=== PATIENT | female | born 1935 | race Caucasian/White ===

== ENCOUNTER 2019-07-07 16:40 | Inpatient (IN) | payer MEDICARE ==
[~2019-07-07] VITALS: Ht 165.1 cm; Wt 66.4 kg
[2019-07-07 18:58] VITALS: BP 150/74
[2019-07-07] MEDS ORDERED: METO100T5 PO (19:22)
[2019-07-07] MEDS ORDERED: FLEC25TA PO (19:22)
[2019-07-07] MEDS ORDERED: BENA40TA5 PO (19:22)
[2019-07-07] MEDS ORDERED: XARE20TA PO (19:22)
[2019-07-07] MEDS ORDERED: VITA1CHW7 PO (19:22)
[2019-07-07] MEDS ORDERED: VITA-158 PO (19:22)
[2019-07-07] MEDS ORDERED: FURO20TA2 PO (19:22)
[2019-07-07] MEDS ORDERED: ALLO100T PO (19:22)
[2019-07-07] MEDS ORDERED: AMLO10TA5 PO (19:22)
[2019-07-07] MEDS ORDERED: REFR0.5D8 OU (19:22)
[2019-07-07] MEDS ORDERED: ACET-897 PO (19:22)
[2019-07-07 20:00] VITALS: BP 150/70
--- NOTE | 2019-07-07 20:12 | REPVR ---
PROCEDURE INFORMATION: Exam: CT Chest Without Contrast Exam date and time: 07/07/2019 7:35 PM Age: 83 years old Clinical indication: Other: Pleural effusion TECHNIQUE: Imaging protocol: Computed tomography of the chest without contrast. 3D rendering: MIP and/or 3D reconstructed images were created by the technologist. Radiation optimization: All CT scans at this facility use at least one of these dose optimization techniques: automated exposure control; mA and/or kV adjustment per patient size (includes targeted exams where dose is matched to clinical indication); or iterative reconstruction. COMPARISON: No relevant prior studies available. FINDINGS: Lungs: Large left upper lobe pulmonary parenchymal mass measures 5.4 x 6.2 x 5.7 cm, likely malignant. Atelectasis of the lingular lobe. Multiple bilateral pulmonary parenchymal nodules measuring up to 8 mm in the left upper lobe. Findings worrisome for hematogenous dissemination of tumor. Ground-glass opacity in the right upper lobe measures 1.8 x 1.3 x 2.1 cm and in the superior segment of the right lower lobe measuring 1 x 2.3 x 2.6 cm. Bronchiectasis involving the posterior segmental bronchi of the right upper lobe. Tree-in-bud opacities demonstrated in the peripheral aspect of the right upper lobe, lateral aspect of the right middle lobe, and right lower lobe consistent with foci of age indeterminate bronchiolitis/alveolitis. Pleural space: Moderate loculated pleural effusion. Heart: There is mild atherosclerotic calcification of the coronary arteries. Pulmonary arteries: There is enlargement of the central pulmonary arteries, findings which can be associated with pulmonary arterial hypertension which should be correlated clinically. Aorta: The aorta demonstrates moderate atherosclerotic calcification. Lymph nodes: Unremarkable. No enlarged lymph nodes. Gallbladder and bile ducts: There are gallstones present. No evidence of cholecystitis demonstrated. Bones/joints: The spine demonstrates moderate degenerative changes. Soft tissues: Unremarkable. IMPRESSION: 1. Large left upper lobe pulmonary parenchymal mass measures 5.4 x 6.2 x 5.7 cm, likely malignant. Confirmation with percutaneous image guided biopsy could be obtained if clinically desired. 2. Moderate loculated pleural effusion. 3. Multiple bilateral pulmonary parenchymal nodules measuring up to 8 mm in the left upper lobe. Findings worrisome for hematogenous dissemination of tumor. 4. Ground-glass opacity in the right upper lobe measures 1.8 x 1.3 x 2.1 cm and in the superior segment of the right lower lobe measuring 1 x 2.3 x 2.6 cm. Follow-up pending evaluation of the left upper lobe mass. 5. Bronchiectasis involving the posterior segmental bronchi of the right upper lobe. 6. Tree-in-bud opacities demonstrated in the peripheral aspect of the right upper lobe, lateral aspect of the right middle lobe, and right lower lobe consistent with foci of age indeterminate bronchiolitis/alveolitis. 7. There is enlargement of the central pulmonary arteries, findings which can be associated with pulmonary arterial hypertension which should be correlated clinically. 8. There are gallstones present. No evidence of cholecystitis demonstrated. Electronically signed by: Bernardo Vinson On 07/07/2019 20:12:15 PM
[2019-07-07 20:13] LABS: BASO % 0.5 % (0.0-1.0); EOS % 0.5 % (0.0-3.0); HEMATOCRIT 36.6 % (36.0-47.0); HEMOGLOBIN 11.8 g/dl (12.0-15.5); LYMPH # 0.8 10^3/uL (1.5-5.0); LYMPH % 8.8 % (24.0-44.0); MEAN CORPUSCULAR HEMOGLOBIN 30.6 pg (27.0-33.0); MEAN CORPUSCULAR HGB CONC 32.2 g/dl (32.0-36.5); MEAN CORPUSCULAR VOLUME 94.8 fl (80.0-96.0); MONO # 0.9 10^3/uL (0.0-0.8); MONO % 10.8 % (0.0-5.0); NEUTROPHILS # 6.8 10^3/uL (1.5-8.5); NEUTROPHILS % 78.9 % (36.0-66.0); PLATELET COUNT, AUTOMATED 347 10^3/uL (150-450); RED BLOOD COUNT 3.86 10^6/uL (4.00-5.40); WHITE BLOOD COUNT 8.5 10^3/uL (4.0-10.0)
[2019-07-07 20:27] LABS: INR 1.92; PROTHROMBIN TIME 21.8 SECONDS (11.8-14.0)
[2019-07-07 20:28] LABS: PARTIAL THROMBOPLASTIN TIME 48.7 SECONDS (25.0-38.4)
[2019-07-07 20:38] LABS: ALBUMIN 3.1 GM/DL (3.2-5.2); ALT/SGPT 15 U/L (12-78); BILIRUBIN,TOTAL 0.4 MG/DL (0.2-1.0); BLOOD UREA NITROGEN 19 MG/DL (7-18); CARBON DIOXIDE LEVEL 29 MEQ/L (21-32); CHLORIDE LEVEL 102 MEQ/L (98-107); CK-MB VALUE MASS < 1.0 NG/ML (<3.6); CPK CREATINE PHOSPHOKINASE 32 U/L (26-192); CREATININE FOR GFR 1.19 MG/DL (0.55-1.30); GLUCOSE, FASTING 136 MG/DL (70-100); MB/CK RELATIVE INDEX 3.12 (< OR =4); NT-PRO BNP 354 PG/ML (<450); POTASSIUM SERUM 3.9 MEQ/L (3.5-5.1); SODIUM LEVEL 138 MEQ/L (136-145); TOTAL PROTEIN 6.8 GM/DL (6.4-8.2); TROPONIN I < 0.02 NG/ML (< 0.10)
--- NOTE | 2019-07-07 22:38 | ECGEPIP ---
[facility] Test Date: 2019-07-07 Pat Name: OMAR MANZO Department: Room: I4530-76 Gender: Female Landmen: JAVED : 1935 Requested By: KP Hartley Order Number: [id number] Reading MD: Adriel Ellis Measurements Intervals [place] Rate: 66 P: 85 LA: 130 QRS: 29 QRSD: 92 T: 27 QT: 364 QTc: 384 Interpretive Statements SINUS RHYTHM WITH OCCASIONAL SUPRAVENTRICULAR PREMATURE COMPLEXES Poor R wave progression. No prior ECG available for comparison at the time of interpretation. Electronically Signed on 07-07-2019 22:37:50 EST by Adriel Ellis
--- NOTE | 2019-07-07 23:59 | HPEPDOC ---
General Date of Admission Jul 07, 2019 at 18:30 Date of Service: Jul 07, 2019 Attending Physician: KP CALDERA MD Chief Complaint The patient is a 83-year-old female admitted with a reason for visit of Pleural Effusion. Source: Patient, Family History of Present Illness Concepcion is an 83-year-old female who was admitted directly to the hosp ital after concerned that she has a malignant pleural effusion. She has a past medical history pertinent for right sided breast cancer that was diagnosed in 1994, status post right-sided mastectomy with removal of 27 lymph nodes, as well as chemotherapy. All of her care was done in [place]. She presents to [facility] saying that she has been sick since with a dry cough. It has been about the same or slightly worsened since it started, and there has been no sputum production or hemoptysis. Sometimes a cold drink or walking into cold air will start some coughing fits, other times it begins without any inciting event. Along with her cough, she has had an insidious onset of shortness of breath that started some time between [place] and now. Her shortness of breath has gotten worse, though she denies orthopnea or paroxysmal nocturnal dyspnea. It is slightly worse with exertion, however she has not really noticed any other remitting or exacerbating factors. She also reports that she has lost 5-6 pounds over the last 3 months, and feels like sometimes food gets stuck in her throat. Periodically she will have some pain with swallowing. She says that sometimes she will have intermittent chest discomfort in the left lower chest/left upper quadrant, however it does not last for a long and she cannot describe it in detail. Periodically she will have some midthoracic back pain, which is chronic for her. She will also have nosebleeds if she blows her nose too hard. Her social history is significant for a greater than [id number] smoking history, however she did quit about 40 years ago. She also used to work in a [employer] placement. She lives alone in an old house, she is unsure as to whether or not it has led or asbestos in it. Home Medications Scheduled Allopurinol (Allopurinol) 100 Mg Tablet, 100 MG PO BID, (Reported) Amlodipine Besylate (Amlodipine Besylate) 10 Mg Tablet, 10 MG PO DAILY, (Reported) Ascorbic Acid (Vitamin C) 500 Mg Tablet, 500 MG PO DAILY, (Reported) Benazepril HCl (Benazepril HCl) 40 Mg Tablet, 40 MG PO DAILY, (Reported) Carboxymethylcellulose Sodium (Refresh Tears) 15 Ml Drops, 1 DROP OU BID, (Reported) Cholecalciferol (Vitamin D3) (Vitamin D3) 2,000 Unit Tab.chew, 2,000 UNIT PO DAILY, (Reported) Flecainide Acetate (Flecainide Acetate) 50 Mg Tablet, 50 MG PO BID, (Reported) Furosemide (Furosemide) 20 Mg Tablet, 20 MG PO 3XW, (Reported) TUES, THURS, SAT Metoprolol Tartrate (Metoprolol Tartrate) 100 Mg Tablet, 50 MG PO BID, (Reported) Rivaroxaban (Xarelto) 20 Mg Tablet, 20 MG PO DAILY, (Reported) Scheduled PRN Acetaminophen (Tylenol Extra Strength) 500 Mg Tablet, 1,000 MG PO TID PRN for PAIN, (Reported) Allergies Coded Allergies: No Known Allergies (Unverified , 07/07/19) Past Medical History Medical History Gout Hypertension Atrial fibrillation, rate controlled with flecainide and metoprolol, anticoagulated with Xarelto History of right-sided breast cancer (1994) status post right-sided mastectomy and removal of 27 lymph nodes Basal cell carcinoma of the nose status post excision Surgical History Tonsillectomy Both eyes 2 (?cataracts) Right-sided Mastectomy with removal of 27 lymph nodes Subsequent right axillary surgery (unsure of what kind or what for) Family History Most of her father's side of the family had cancer Social History She is a former smoker (quit 40 years ago with a greater than [id number] smoking history). Occasionally will have a glass of beer or wine every once in a while. Lives alone in an older home. No pets. No travel, she has stayed in the [place] country for all of her life. 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 A-FIB/CHADSVASC A-FIB History Current/History of A-Fib/PAF?: Yes Current PO Anticoag Therapy: Yes Review of Systems Other systems Constitutional: Denies fevers, chills, or night sweats. Endorses 5-6 pound weight loss over the last 3 months Eyes: Denies double vision, blurry vision, floaters, or feeling like a curtain pulled down. Endorses vision changes while reading, occasionally a workable look like it is cut off Ear nose throat: Denies runny nose, epistaxis, sinus pain, tinnitus, or sore throat. Endorses odynophagia Cardiovascular: Denies chest pain, paroxysmal nocturnal dyspnea, orthopnea, edema, or palpitations. Respiratory: Denies sputum production, wheezes, or hemoptysis. Endorses dry cough and shortness of breath as above Gastrointestinal: Denies abdominal pain, loss of appetite, nausea, vomiting, diarrhea, constipation, obstipation, hematemesis, hematochezia, melena, or tenesmus Musculoskeletal: Denies joint swelling, decreased range of motion, crepitus, or new arthritis Integumentary: Denies pruritus, rashes, or lesions Neuro: Denies any changes to sight/smell/hearing/taste, seizures, faint, headaches, paresthesias, anesthesias Psychiatric: Denies depression, anxiety, paranoia, anhedonia, or episodes of mercedes Endocrine: Denies diarrhea, increased appetite, tremor, palpitations, constipation, dry skin, polydipsia, polyuria, polyphagia Hematologic: Denies any anemia, purpura, or petechiae Lymphatic: Denies any new lumps or bumps anywhere Physical Examination Other physical findings General: Elderly and pleasant female in no acute distress, lying in bed in the PCU HEENT: Atraumatic, normocephalic. Neck his membranes are moist. Patient is edentulous and has upper and lower dentures. She has a Mallampati 3. Pupils are equal round and reactive to light, extraocular eye movements are intact. Nares are patent Neck: Trachea is midline, supple, no lymphadenopathy is appreciated. No JVD. Chest: Symmetric rise. No supraclavicular lymphadenopathy is appreciated. Patient is mildly kyphotic. Lungs: Diminished breath sounds in the left lung from ribs 7/8 downward with dullness to percussion in this area as well. No wheezes or rhonchi are noted in the apex of the left lung. The right lung is clear to auscultation; no wheezes, rhonchi, or rales. Heart: Regular rate with an occasional extra beat. No murmurs, gallops, or rubs. Telemetry: Sinus rhythm with an occasional PAC. Abdomen: Normoactive bowel sounds. Soft. Nontender to palpation and n ondistended. Extremities: No clubbing, cyanosis, or edema. Pulses are 2+ bilaterally in all 4 extremities. Skin: No rashes or lesions are noted Psych: Mood and affect are appropriate Neuro: Cranial nerves II through XII grossly intact. Sensation is intact throughout. Muscle strength is 5 out of 5 in all 4 extremities. Vital Signs Vital Signs Date Time Temp Pulse Resp B/P (MAP) Pulse Ox O2 Delivery O2 Flow Rate FiO2 07/07/19 20:00 97.5 74 16 150/70 (96) 95 Room Air Laboratory Data Labs 24H Laboratory Tests 2 07/07/19 19:58: Immature Granulocyte % (Auto) 0.5, Neutrophils (%) (Auto) 78.9H, Lymphocytes (%) (Auto) 8.8L, Monocytes (%) (Auto) 10.8H, Eosinophils (%) (Auto) 0.5, Basophils (%) (Auto) 0.5, Neutrophils # (Auto) 6.8, Lymphocytes # (Auto) 0.8L, Monocytes # (Auto) 0.9H, Eosinophils # (Auto) 0.0, Basophils # (Auto) 0.0, Nucleated Red Blood Cells % (auto) 0.0, Erythrocyte Sedimentation Rate 68H, Prothrombin Time 21.8H, Prothromb Time International Ratio 1.92, Activated Partial Thromboplast Time 48.7H, Anion Gap 7L, Glomerular Filtration Rate 46.0, Calcium Level 9.0, Total Bilirubin 0.4, Aspartate Amino Transf (AST/SGOT) 12, Alanine Aminotransferase (ALT/SGPT) 15, Alkaline Phosphatase 87, Total Creatine Kinase 32, Creatine Kinase MB < 1.0, Creatine Kinase MB Relative Index 3.12, Troponin I < 0.02, C-Reactive Protein, Quantitative 4.66H, VQ-Mlu-M-Type Natriuretic Peptide 354, Total Protein 6.8, Albumin 3.1L, Albumin/Globulin Ratio 0.84L CBC/BMP Laboratory Tests 07/07/19 19:58 RAD Interpretation STUDY: CT Chest (large left upper lobe pulmonary parenchymal mass, atelectasis of the lingular lobe, multiple bilateral pulmonary parenchymal nodules in the left upper lobe, moderate loculated pleural effusion, and multiple small mediastinal lymph nodes as well as a dominant lymph node in the AP window measuring up to 1.6 cm) Assessment/Plan Assessment: 83-year-old female with a past medical history significant for right-sided breast cancer in 1994 status post right-sided mastectomy with removal of 27 lymph nodes and chemotherapy. 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 Plan: 1. Pleural effusion. Suspected to be malignant, as there is what looks to be a lung mass in the left upper lobe. Dr. Ryan from thoracic surgery has been consulted and will see the patient tomorrow, we appreciate his help. Most likely will drain the effusion and sent for cytology. 2. Lung mass on x-ray and CT scan. Suspected to be malignant. Please see above. 3. Hypertension. Continue the patient's home amlodipine, but denies up or roll, and furosemide. 4. Atrial fibrillation. Continue patient's flecainide and metoprolol. Xarelto is on hold pending procedure tomorrow with Dr. Ryan. Currently on telemetry and rate controlled with occasional PACs. 5. Gout. Continue home allopurinol 6. DVT prophylaxis. Teds and sequentials as her Xarelto is on hold right now Disposition: Inpatient, as we expect greater than 2 midnights Plan / VTE VTE Prophylaxis Ordered?: Yes GME ATTESTATION GME ATTESTATION My faculty preceptor for this patient encounter was physically present during the encounter and was fully available. All aspects of the patient interview, examination, medical decision making process, and medical care plan development were reviewed and approved by the faculty preceptor. The faculty preceptor is aware and concurs with the plan as stated in the body of this note and will attest to such by his/her cosignature. ATTENDING NOTE I have independently interviewed and examined the patient at the bedside, and agree with the physical findings, and management plan as documented by my resident physician. MIGUEL LARRY D.O. Jul 07, 2019 23:59 KP CALDERA MD Jul 08, 2019 02:08
[2019-07-08] VITALS (20 sets, daily range): BP systolic 100–168; BP diastolic 50–92
[2019-07-08] MEDS ORDERED: ACETAMINOPHEN 500 MG TAB PO PRN
[2019-07-08] MEDS: FLECAINIDE 50MG TABLET PO SCH ×3 (00:31→20:36)
[2019-07-08] MEDS: METOPROLOL TART 50 MG TAB PO SCH ×3 (00:31→20:37)
[2019-07-08] MEDS: allopurinoL 100 MG TAB PO SCH ×3 (00:31→20:37)
[2019-07-08 05:30] LABS: HEMATOCRIT 31.7 % (36.0-47.0); HEMOGLOBIN 10.5 g/dl (12.0-15.5); MEAN CORPUSCULAR HGB CONC 33.1 g/dl (32.0-36.5); MEAN CORPUSCULAR VOLUME 93.5 fl (80.0-96.0); PLATELET COUNT, AUTOMATED 305 10^3/uL (150-450); RED BLOOD COUNT 3.39 10^6/uL (4.00-5.40); WHITE BLOOD COUNT 6.9 10^3/uL (4.0-10.0)
[2019-07-08 05:53] LABS: BLOOD UREA NITROGEN 16 MG/DL (7-18); CALCIUM LEVEL 8.6 MG/DL (8.8-10.2); CARBON DIOXIDE LEVEL 29 MEQ/L (21-32); CHLORIDE LEVEL 105 MEQ/L (98-107); CREATININE FOR GFR 0.91 MG/DL (0.55-1.30); GLOMERULAR FILTRATION RATE > 60.0 (>32); GLUCOSE, FASTING 91 MG/DL (70-100); LDH LACTATE DEHYDROGENASE 135 U/L (84-246); POTASSIUM SERUM 3.9 MEQ/L (3.5-5.1); SODIUM LEVEL 139 MEQ/L (136-145)
--- NOTE | 2019-07-08 07:48 | REP ---
Clinical: Chest pain. Pleural effusion. Technique: PA and lateral. Findings: Moderate/large left pleural effusion with underlying passive atelectasis suspected. Opacity at the left lung apex is concerning for a trapped fluid versus mass. Underlying chronic interstitial changes are noted to the aerated lung caceres. Right hemithorax is clear. Mediastinum is incompletely evaluated due to overlying opacities. Skeletal structures are intact. Impression: Moderate/large left pleural effusion with presumed passive atelectasis. Left apical density concerning for a trapped fluid versus mass. Electronically Signed by Pantera Quesada MD 07/08/2019 07:39 A
[2019-07-08] MEDS ORDERED: RIVAROXABAN 20 MG TAB (XARELTO) PO SCH (09:00)
[2019-07-08] MEDS: DOCUSATE SODIUM 100 MG CAP PO SCH ×2 (09:00→20:36)
[2019-07-08] MEDS ORDERED: flumazeniL 0.5 MG/5 ML VIAL As Ordered ONE (09:22)
[2019-07-08] MEDS ORDERED: MIDAZOLAM INJ 2 MG/2 ML VIAL (J2250) As Ordered ONE (09:22)
[2019-07-08] MEDS ORDERED: LIDOCAINE 1% MDV 20ML VIAL As Ordered ONE (09:23)
[2019-07-08] MEDS ORDERED: KCL 20MEQ IN D5/NS 1000ML 1,000 ML IV SCH (10:33)
[2019-07-08] MEDS ORDERED: BISACODYL 10 MG SUPP PR PRN (10:45)
[2019-07-08] MEDS ORDERED: LEVALBUTEROL 1.25 MG/0.5 ML CONCENTRATE NEB NEB PRN (10:45)
[2019-07-08] MEDS ORDERED: ONDANSETRON 4MG/2ML VIAL (J2405) IV PRN (10:45)
--- NOTE | 2019-07-08 10:48 | RO ---
DATE OF PROCEDURE: PREPROCEDURE DIAGNOSIS: Left pleural effusion. POSTPROCEDURE DIAGNOSIS: Left pleural effusion. PROCEDURE: Insertion of left lateral chest tube. SURGEON: Dr. Flaco Ryan. PRINCIPAL NETWORK ENGINEER: ANESTHESIA: Moderate sedation. 4 mg of Versed. FINDINGS: Chest tube was delivered of 1800 mL of serosanguineous fluid. It was sent for the requisite studies of cytologies, hematologies, chemistries and bacteriologies. DESCRIPTION OF PROCEDURE: Under satisfactory moderate sedation achieved with 4 mg of Versed, patient was prepped and draped in the usual sterile fashion. An incision was made over the approximate 7th intercostal space. A tunnel was created in the chest without difficulty after infiltrating the skin and subcutaneous tissue and pleura with 1% lidocaine. A #24 chest tube was paced without difficulty and the above results were noted. The chest tube was secured to the chest wall with #2 Tevdek suture. The patient tolerated the procedure well and a chest x-ray is pending.
--- NOTE | 2019-07-08 10:49 | REP ---
Clinical: Status post chest tube for pleural effusion. Findings: Chest tube at the left base is now identified and the previously noted large left pleural effusion is nearly completely resolved. Residual left lower lobe atelectasis and small pleural reaction now suggested. Left apical density remains unchanged and is suspicious for mass lesion. Mediastinum and cardiac silhouette appear normal. Aerated lung caceres demonstrate diffuse chronic interstitial changes. Skeletal structures are intact. Impression: 1. Essentially complete resolution to the left pleural effusion with only minimal residual left basilar atelectasis and small pleural reaction. 2. Stable left apical mass density. Electronically Signed by Pantera Quesada MD 07/08/2019 10:41 A
[2019-07-08] MEDS ORDERED: MIDAZOLAM INJ 2 MG/2 ML VIAL (J2250) IV STA (11:06)
[2019-07-08] MEDS ORDERED: LIDOCAINE 1% MDV 20ML VIAL SC ONE (11:15)
[2019-07-08 11:18] LABS: BASO % 0.7 % (0.0-1.0); EOS # 0.1 10^3/uL (0.0-0.5); EOS % 1.3 % (0.0-3.0); HEMATOCRIT 32.4 % (36.0-47.0); HEMOGLOBIN 10.6 g/dl (12.0-15.5); LYMPH # 0.6 10^3/uL (1.5-5.0); LYMPH % 9.6 % (24.0-44.0); MEAN CORPUSCULAR HGB CONC 32.7 g/dl (32.0-36.5); MEAN CORPUSCULAR VOLUME 94.7 fl (80.0-96.0); MONO # 0.7 10^3/uL (0.0-0.8); MONO % 10.7 % (0.0-5.0); NEUTROPHILS # 4.7 10^3/uL (1.5-8.5); NEUTROPHILS % 77.2 % (36.0-66.0); PLATELET COUNT, AUTOMATED 312 10^3/uL (150-450); RED BLOOD COUNT 3.42 10^6/uL (4.00-5.40); WHITE BLOOD COUNT 6.1 10^3/uL (4.0-10.0)
[2019-07-08 11:25] LABS: APPEARANCE, BODY FLUID CLOUDY (CLEAR); PLEURAL FL COLOR RED (COLORLESS); SOURCE, BODY FLUID PLEURAL
[2019-07-08 11:34] LABS: PH BODY FLUID 7.411 UNITS (NOT ESTABLISHED); SOURCE, BODY FLUID pH PLEURAL
[2019-07-08 11:37] LABS: BLOOD UREA NITROGEN 17 MG/DL (7-18); CALCIUM LEVEL 9.6 MG/DL (8.8-10.2); CARBON DIOXIDE LEVEL 30 MEQ/L (21-32); CHLORIDE LEVEL 104 MEQ/L (98-107); CREATININE FOR GFR 0.94 MG/DL (0.55-1.30); GLOMERULAR FILTRATION RATE > 60.0 (>32); GLUCOSE, FASTING 95 MG/DL (70-100); LDH LACTATE DEHYDROGENASE 123 U/L (84-246); SODIUM LEVEL 138 MEQ/L (136-145)
--- NOTE | 2019-07-08 11:54 | IPNPDOC ---
Text Note Date of Service The patient was seen on 07/08/19. NOTE Subjective: Patient stated that she has shortness of breath. No any acute herlinda nts. Objective: VITAL SIGNS: Please see below. GENERAL APPEARANCE: Well-nourished, well-developed, not in apparent distress HEENT: Normocephalic, atraumatic. Mucous members moist and pink CARDIOVASCULAR: S1S2 LUNGS: Diminished lung sounds over the left lung field ABDOMEN: Abdomen is soft and nontender. MUSCULOSKELETAL: Range of motion is intact in all 4 extremities NEUROLOGICAL: Cranial nerves II-12 are grossly intact. Speech is not dysarthric Patient is 83 years old female with past medical history of breast cancer present hospital with increased shortness of breath. Patient was found to have left pleural effusion and left lung mass with lymphadenopathy. 1. Pleural effusion. Most likely secondary to malignancy Dr. Ryan did pleuracentesis on 07/08/19 Await cytology results 2. Lung mass on x-ray and CT scan. Suspicious for malignancy IR biopsy ordered Oncology consult after pathology report 3. Hypertension. Continue home cardioprotective medications 4. Atrial fibrillation. Heart rate is under control We will resume oral targeted anticoagulation in 12 hours after paracentesis 5. Gout. Not in acute exacerbation Continue home allopurinol 6. DVT prophylaxis. Teds and sequentials as her Xarelto is on hold right now VS,Troybone, I+O VS, Fishbone, I+O Laboratory Tests 07/07/19 19:58 07/08/19 04:48 07/08/19 11:03 Vital Signs Date Time Temp Pulse Resp B/P (MAP) Pulse Ox O2 Delivery O2 Flow Rate FiO2 07/08/19 07:56 97.7 77 18 130/68 (88) 93 Room Air I&O- Last 24 Hours up to 6 AM 07/08/19 05:59 Intake Total 0 ml Output Total 100 ml Balance -100 ml ROSARIO HAMMER DO Jul 08, 2019 11:54
[2019-07-08 12:02] LABS: AMYLASE, BODY FLUID 158 U/L (NOT ESTABLISHED); CHOLESTEROL, BODY FLUID 106 MG/DL (NOT ESTABLISHED); LDH, BODY FLUID 397 U/L (NOT ESTABLISHED); SOURCE, BODY FLUID ALBUMIN PLEURAL; SOURCE, BODY FLUID AMYLASE PLEURAL; SOURCE, BODY FLUID CHOL PLEURAL; SOURCE, BODY FLUID GLUCOSE PLEURAL; SOURCE, BODY FLUID LDH PLEURAL; SOURCE, BODY FLUID TOT PROTEIN PLEURAL; SOURCE, BODY FLUID TRIG PLEURAL; TOTAL PROTEIN, BODY FLUID 4.9 G/DL (NOT ESTABLISHED); TRIGLYCERIDE, BODY FLUID 54 MG/DL (NOT ESTABLISHED)
[2019-07-08 12:16] LABS: TOTAL PROTEIN 6.7 GM/DL (6.4-8.2)
--- NOTE | 2019-07-08 12:34 | CR ---
DATE OF CONSULTATION: 07/08/2019 The patient is seen at the request of the hospitalist service for shortness of breath and a pleural effusion along with a left upper lobe mass. HISTORY OF PRESENT ILLNESS: The patient is an 83-year-old white female whose story starts around [place] when she started to notice a cough. The cough has been nonproductive but continuous. Within the last 4-3 weeks, she has also started to experience shortness of breath such that now she has trouble getting around her house without getting short of breath. She does not have any orthopnea or paroxysmal nocturnal dyspnea however. There has been no fever, chills or sweats. She does not complain of chest pain or chest discomfort. There is no pain when she takes a deep breath. She does state that she does occasionally choke with swallowing, but other than that there is no true dysphagia. She has lost 4-5 pounds over the last 6 months. She has a past medical history significant for breast cancer status post a right mastectomy over 20 years ago. That was followed with chemotherapy and hormonal therapy which has long since been discontinue. She was a former smoker but smoked maybe half a pack a day. She quit 40 years ago. She states that she had 27 nodes removed. She does not know what their status was, but she thinks they were negative. PAST MEDICAL ILLNESSES: Gout. Hypertension. Atrial fibrillation on Xarelto. Numerous skin carcinomas removed on nose and neck. PAST SURGICAL HISTORY: Tonsillectomy, the above mastectomy, bilateral cataracts. She states that when in [place] they could not get her heart rate under control and that they "zapped" her heart. I am not sure if this was an ablation or a cardioversion. ALLERGIES: NONE. MEDICATIONS: - allopurinol 100 mg twice a day - amlodipine 10 mg every day - Vitamin C 500 mg every day - benazepril 40 mg every day - Artificial Tears one drop both eyes twice a day - Vitamin D3 2000 units every day - flecainide 50 mg twice a day - Lasix 20 mg by three times a week - metoprolol 50 mg twice a day - Xarelto 20 mg every day EXPOSURES: No dogs, birds or cats at home. Positive history of tuberculosis when in school, but she has been tested and she has been negative. FAMILY HISTORY: There is a strong family history of various carcinomas on her father's side. HABITS: The above smoking history. She drinks socially. No illicit drugs. TRAVEL HISTORY: She has a positive travel history to [place] and to [place], but none to the [facility]. REVIEW OF SYSTEMS: Constitutional: See history of present illness (HPI). Eyes: See HPI. Without diplopia. Without amaurosis fugax or prior jaundice. Nose: Without epistaxis. Mouth: Has dentures. Respiratory: See HPI. Cardiac: See HPI. Without peripheral edema or intermittent claudication, or prior history of myocardial infarction. Gastrointestinal: Without nausea, vomiting, diarrhea, constipation, melena, hematochezia, hematemesis or abdominal pain. Genitourinary: Without dysuria, hematuria or prior history of renal stones. Endocrine: Without diabetes. Without thyroid disease. Hematologic: Cannot recall the last time she cut herself to report her bleeding times. Neurologic: Without paresthesias, paralyses, prior CVAs or seizures. Psychiatric: Without pathological anxieties, depressions or psychoses. PHYSICAL EXAMINATION: Well-developed, well-nourished, white female in no acute distress. Vital Signs: Temperature is 97.8, heart rate of 66, with an irregular rate and rhythm, respiratory rate of 16. Blood pressure is 130/58. She is 91% saturated on room air. Head: Normocephalic. Eyes: Pupils equal and reactive to light. Extraocular movements intact. Sclerae nonicteric. Nose: Without deformity. Mouth: Shows her mucous membranes to be pink and moist. Lips and commissures are without lesions. There is no thrush. She has dentures in place. Neck is supple. There is no jugular venous distention, no subcutaneous emphysema, and trachea is midline. There is no thyromegaly or lymphadenopathy. She has 2+ carotid upstrokes without bruits. Chest: Shows markedly decreased breath sounds on the left side with a dull percussion note at the left side. She has E-to-A egophony at the base of the left lung. I hear no wheezes, rhonchi or rales however. Cardiac exam is without murmurs, clicks, gallops, or rubs. I cannot feel her point of maximum impulse (PMI). S1 and S2 are normal. Abdomen: Soft. Nontender. Bowel sounds are positive. There is no hepatomegaly. No costovertebral angle (CVA) tenderness. Extremities: Show no pretibial edema. No calf tenderness. No differential swelling of the upper extremities. Skin is warm, dry and perfused, without cyanosis or mottling including that of the nail beds and knees. Neurologic: Shows II-XII intact along with gross motor and gross sensation intact. Gait is not tested. Psychiatric: Shows her to be awake, alert, oriented times three with appropriate mood and affect and conversational. INVESTIGATIONS: Her white count is 6.9 with hemoglobin and hematocrit of 10.5 and 31.7 and a platelet count of 305. Differential yesterday shows 78% neutrophils, 8% lymphocytes, 10% monocytes. There are no immature forms. No toxic granulations. Electrolytes are normal with a BUN and creatinine of 16 and 0.91, glucose of 91 and a calcium of 8.6. AST and ALT yesterday were 12 and 15 respectively. BUN was 3.1. PT/INR are 21/8 and 1.92 respectively, with a PTT of 48 seconds. Her chest x-ray done yesterday in the emergency room shows a pleural effusion with a meniscus about residential up the chest. There is also what looks to be a mass in the left upper lobe in addition to the left pleural effusion. Her chest CT done yesterday confirms the pleural effusion and the mass. The mass measures approximately 6 cm in its greatest dimension. There are a number of satellite masses around this with a definitive mass, which measures 8 mm. This is noncalcified. She has lung compression from the pleural effusion of the lower lobe and the lingula. The study is done without contrast but there is probable hilar lymphadenopathy. I do not see significant mediastinal lymphadenopathy. There is a sclerotic lesion at L1. IMPRESSION: 1. Pleural effusion. 2. Left upper lobe mass probably malignant. 3. History of breast cancer on the right side. 4. Gout. 5. Hypertension. 6. Atrial fibrillation, on Xarelto. PLAN AND DISCUSSION: The first order of business is to drain her pleural effusion. I will therefore place a lateral chest tube. Will then follow that up probably most likely tomorrow after she has been off the Xarelto with a needle biopsy of the large left upper lobe mass. My suspicion is that this is going to be malignant. I am not completely convinced that this represents her breast cancer from 20 years ago, but she certainly has the risk factors for lung cancer.
[2019-07-08] MEDS: ASCORBIC ACID 500 MG TAB PO SCH (13:01)
[2019-07-08] MEDS: PANTOPRAZOLE 40MG TAB (PROTONIX) PO SCH (13:01)
[2019-07-08] MEDS: amLODIPine 10 MG TAB PO SCH (13:01)
[2019-07-08] MEDS: BENAZEPRIL 20 MG TAB PO SCH (13:02)
[2019-07-08] MEDS: PERCOCET 5MG/325MG TAB PO PRN (14:37)
[2019-07-08] MEDS ORDERED: SLF 3 ML SYR IV PRN (14:45)
[2019-07-08] MEDS: LEVALBUTEROL 1.25 MG/0.5 ML CONCENTRATE NEB NEB SCH ×2 (15:28→19:20)
[2019-07-08] MEDS: NORCO, ANEXSIA 5/325MG TABLET (HYDROcodone/ACETAMINOPHEN) PO PRN (20:37)
[2019-07-08] MEDS: SLF 3 ML SYR IV SCH (20:38)
[2019-07-09] MEDS: LEVALBUTEROL 1.25 MG/0.5 ML CONCENTRATE NEB NEB SCH ×4 (02:35→19:42)
[2019-07-09 04:00] VITALS: BP 112/52
[2019-07-09 05:59] LABS: BASO % 0.4 % (0.0-1.0); EOS # 0.2 10^3/uL (0.0-0.5); EOS % 3.4 % (0.0-3.0); HEMATOCRIT 30.3 % (36.0-47.0); HEMOGLOBIN 9.9 g/dl (12.0-15.5); LYMPH # 0.8 10^3/uL (1.5-5.0); LYMPH % 11.1 % (24.0-44.0); MEAN CORPUSCULAR HEMOGLOBIN 30.9 pg (27.0-33.0); MEAN CORPUSCULAR HGB CONC 32.7 g/dl (32.0-36.5); MEAN CORPUSCULAR VOLUME 94.7 fl (80.0-96.0); MONO # 0.9 10^3/uL (0.0-0.8); MONO % 12.7 % (0.0-5.0); NEUTROPHILS # 4.9 10^3/uL (1.5-8.5); NEUTROPHILS % 71.8 % (36.0-66.0); PLATELET COUNT, AUTOMATED 259 10^3/uL (150-450); WHITE BLOOD COUNT 6.8 10^3/uL (4.0-10.0)
[2019-07-09] MEDS: SLF 3 ML SYR IV SCH ×3 (06:07→20:28)
[2019-07-09 06:24] LABS: CREATININE FOR GFR 0.95 MG/DL (0.55-1.30)
[2019-07-09 06:25] LABS: CALCIUM LEVEL 8.6 MG/DL (8.8-10.2); GLOMERULAR FILTRATION RATE 59.7 (>32); POTASSIUM SERUM 3.9 MEQ/L (3.5-5.1)
[2019-07-09] MEDS: NORCO, ANEXSIA 5/325MG TABLET (HYDROcodone/ACETAMINOPHEN) PO PRN (07:59)
[2019-07-09 08:00] VITALS: BP 124/58
--- NOTE | 2019-07-09 08:11 | REP ---
PA and lateral chest: Comparison is the portable chest dated 07/08/2019. The left thoracotomy tube is unchanged. There is increasing radiodensity inferolaterally in the left lung. There is a large density in the left apex, unchanged, likely a mass. Right lung is clear. Cardiac size is normal. Impression: Increasing density inferolaterally in the left lung. Electronically Signed by Roberto Andino MD 07/09/2019 08:04 A
[2019-07-09] MEDS: PANTOPRAZOLE 40MG TAB (PROTONIX) PO SCH (09:00)
[2019-07-09] MEDS: METOPROLOL TART 50 MG TAB PO SCH ×2 (09:00→20:28)
[2019-07-09] MEDS: FLECAINIDE 50MG TABLET PO SCH ×2 (09:00→20:27)
[2019-07-09] MEDS: DOCUSATE SODIUM 100 MG CAP PO SCH ×2 (09:00→20:27)
[2019-07-09] MEDS: allopurinoL 100 MG TAB PO SCH ×2 (09:00→20:27)
[2019-07-09] MEDS: ASCORBIC ACID 500 MG TAB PO SCH (09:00)
[2019-07-09] MEDS: MOM 30ML SUSPENSION UDC PO SCH (09:00)
[2019-07-09] MEDS: FUROSEMIDE 20 MG TAB PO SCH (09:00)
[2019-07-09] MEDS: amLODIPine 10 MG TAB PO SCH (09:01)
[2019-07-09] MEDS: BENAZEPRIL 20 MG TAB PO SCH (09:01)
--- NOTE | 2019-07-09 11:02 | IPNPDOC ---
Text Note Date of Service The patient was seen on 07/09/19. NOTE Subjective: Patient stated that her shortness of breath resolved. No any acute events. Patient denied fever, chills, nausea, vomiting, diarrhea Objective: VITAL SIGNS: Please see below. GENERAL APPEARANCE: Well-nourished, well-developed, not in apparent distress HEENT: Normocephalic, atraumatic. Mucous members moist and pink CARDIOVASCULAR: S1S2 LUNGS: Diminished lung sounds over the left lung field ABDOMEN: Abdomen is soft and nontender. MUSCULOSKELETAL: Range of motion is intact in all 4 extremities NEUROLOGICAL: Cranial nerves II-12 are grossly intact. Speech is not dysarthric Patient is 83 years old female with past medical history of breast cancer present hospital with increased shortness of breath. Patient was found to have left pleural effusion and left lung mass with lymphadenopathy. 1. Pleural effusion. Most likely secondary to malignancy, pleural fluid showed exudate Dr. Ryan did pleuracentesis on 07/08/19. Oral targeted anticoagulation on hold. Lung biopsy scheduled on Thursday Await cytology results 2. Lung mass on x-ray and CT scan. Suspicious for malignancy IR biopsy ordered Oncology consult after pathology report 3. Hypertension. Continue home cardioprotective medications 4. Atrial fibrillation. Heart rate is under control We will resume oral targeted anticoagulation in 12 hours after paracentesis 5. Gout. Not in acute exacerbation Continue home allopurinol 6. DVT prophylaxis. Teds and sequentials as her Xarelto is on hold right now VS,Fishbone, I+O VS, Fishbone, I+O Laboratory Tests 07/08/19 11:03 07/09/19 05:38 Vital Signs Date Time Temp Pulse Resp B/P (MAP) Pulse Ox O2 Delivery O2 Flow Rate FiO2 07/09/19 09:01 18 07/09/19 09:01 124/58 07/09/19 09:01 65 07/09/19 08:00 97.4 95 Room Air 07/08/19 23:59 0.0 I&O- Last 24 Hours up to 6 AM 07/09/19 06:00 Intake Total 900 ml Output Total 610 ml Balance 290 ml ROSARIO HAMMER DO Jul 09, 2019 11:02
[2019-07-09 12:00] VITALS: BP 115/58
[2019-07-09] MEDS: PERCOCET 5MG/325MG TAB PO PRN (13:56)
--- NOTE | 2019-07-09 14:06 | IPN ---
DATE: 07/09/2019 Ms. Nayak has had a uneventful night after her chest tube was placed. She is breathing a lot better today. Her vital signs show a maximum temperature (t-max) of 98.5 with a heart rate that ranges between 56 and 65 and is in sinus rhythm. Respiratory rate of 18 to 20 without the use of accessory muscles, who is 95% saturated on room air. Blood pressure is ranging between 124/58 to 112/52. Intake and output over the past 24 hours has been recorded as 900 in and 750 out. She has put out 225 mL from the chest tube. Her weight today is 67.5 kilos compared to 69 kilos yesterday. PHYSICAL EXAMINATION: She has equal breath sounds on either side. There are no wheezes, rhonchi, or rales. Percussion is full to the diaphragm. CARDIAC EXAM: Without murmurs, clicks, gallops or rubs. I cannot feel her point of maximum impulse (PMI). S1, S2 are normal. ABDOMEN: Soft, nontender. Bowel sounds are positive. There is no hepatomegaly. No costovertebral angle tenderness. EXTREMITIES: Show no pretibial edema. No calf tenderness. No differential swelling of the upper extremities. SKIN: Warm, dry and perfused without cyanosis or mottling, including that of the nail beds and knees. NECK: Supple. There is no jugular venous distention. No subcutaneous emphysema. Trachea is midline. MOUTH: Shows her mucous membranes to be pink and moist. Lips and commissures without lesions. There is no thrush. EYES: Show her pupils to be equal and reactive. Extraocular motion intact. Sclerae anicteric. NEUROLOGIC: Shows II through XII intact with gross motor and gross sensation intact. Gait is not tested. PSYCHIATRIC: Shows her to be awake and alert, oriented times three with appropriate mood and affect and conversational. Her white count today is 6.8 with a hemoglobin and hematocrit of 9.9 and 30.3, essentially unchanged from yesterday with a platelet count of 259 and stable. Differential shows 71% neutrophils, 11% lymphocytes, and 12% monocytes. There are no immature forms. No toxic granulations. His chemistries show normal electrolytes with a BUN and creatinine of 31 and 1.53 which is slightly improved from 27 and 1.62 yesterday. Calcium is 8.8 with a magnesium of 2.0. Her electrolytes are normal with a BUN and creatinine of 18 and 0.95 with a glucose of 89 and a calcium of 8.6. Her pleural fluid has come back with pH of 7.41 with a glucose of 70 along with an LDH of 397 with a corresponding LDH of 123. Total protein is 4.9 with a corresponding total protein of 6.7. She has 1700 white cells, 75% which are mononuclear lymphocytes, and 25% are neutrophils. This seems to be exudative, normal glycemic, lymphocystic pleural effusion, It is probably consistent with metastatic disease. Final pathology is pending. Her chest x-ray today shows her lung full expanded to the chest wall. She has the left upper lobe mass. The costophrenic angle is blunted on the left side. There looks to be some atelectatic changes in the left lower lobe. IMPRESSION: 1. Pleural effusion. 2. Left upper lobe mass, probably malignant. 3. History of breast cancer of the right side. 4. Gout. 5. Hypertension. 6. Atrial fibrillation. On Xarelto. PLAN AND DISCUSSION: Her Xarelto has been held and she will be going for a needle biopsy of the mass on Thursday. I will continue her chest tube for the time being until the mass is biopsied. I do suspect this is going to be malignant and my instinct is that this is going to represent primary lung cancer rather than metastatic breast cancer. I will discontinue her chest tube from suction.
[2019-07-09 16:00] VITALS: BP 115/64
[2019-07-09 20:00] VITALS: BP 124/58
[2019-07-10] VITALS: BP 98/58
[2019-07-10] MEDS: NORCO, ANEXSIA 5/325MG TABLET (HYDROcodone/ACETAMINOPHEN) PO PRN ×2 (00:10→05:59)
[2019-07-10] MEDS: LEVALBUTEROL 1.25 MG/0.5 ML CONCENTRATE NEB NEB SCH ×4 (01:36→19:31)
[2019-07-10 04:00] VITALS: BP 120/59
[2019-07-10 05:20] LABS: BASO # 0.1 10^3/uL (0.0-0.2); BASO % 0.7 % (0.0-1.0); EOS # 0.3 10^3/uL (0.0-0.5); EOS % 3.9 % (0.0-3.0); HEMATOCRIT 29.7 % (36.0-47.0); HEMOGLOBIN 9.8 g/dl (12.0-15.5); LYMPH # 0.8 10^3/uL (1.5-5.0); LYMPH % 10.3 % (24.0-44.0); MEAN CORPUSCULAR HEMOGLOBIN 30.7 pg (27.0-33.0); MEAN CORPUSCULAR VOLUME 93.1 fl (80.0-96.0); MONO # 1.1 10^3/uL (0.0-0.8); MONO % 14.7 % (0.0-5.0); NEUTROPHILS # 5.3 10^3/uL (1.5-8.5); NEUTROPHILS % 70.1 % (36.0-66.0); PLATELET COUNT, AUTOMATED 268 10^3/uL (150-450); RED BLOOD COUNT 3.19 10^6/uL (4.00-5.40); WHITE BLOOD COUNT 7.5 10^3/uL (4.0-10.0)
[2019-07-10 05:38] LABS: CALCIUM LEVEL 8.2 MG/DL (8.8-10.2); CREATININE FOR GFR 0.97 MG/DL (0.55-1.30); GLOMERULAR FILTRATION RATE 58.2 (>32); POTASSIUM SERUM 4.2 MEQ/L (3.5-5.1)
[2019-07-10] MEDS: SLF 3 ML SYR IV SCH ×3 (05:59→20:21)
--- NOTE | 2019-07-10 06:41 | ECHO ---
DATE OF SERVICE: 07/08/2019 REFERRING PROVIDER: Dr. Alexandra Dewitt PATIENT LOCATION: Room 3211 REASON FOR THE STUDY: Shortness of breath. 2D MEASUREMENTS: IVS 0.9 cm LV: 3.7 cm LVPW: 0.9 cm LA: 3.4 cm Aorta 2.9 cm IVC 1.7 cm DOPPLER MEASUREMENTS: Peak velocity across the aortic valve: 1.2 m/s Peak velocity across the LVOT: 0.7 m/s Mitral E: 0.49 Mitral A: 0.60 with a ratio of 0.8 Maximum tricuspid valve velocity 2.8 m/s 2D COMMENTS: 1. Technically limited study due to poor acoustic window. 2. The left ventricular size appeared to be normal as well as the left ventricular wall thickness. Left ventricular systolic function is estimated at 50-55%. 3. Normal left atrium. Normal right atrium and right ventricle. 4. The atrial septum appeared to be normal without evidence of defect or shunt. 5. Normal aortic root. 6. A small pericardial effusion was noted, no evidence of cardiac tamponade. 7. Mildly calcified aortic valve with normal leaflet excursion. Mildly calcified mitral annulus with normal anterior mitral valve leaflet motion. Normal tricuspid valve and pulmonic valve. The proximal pulmonary artery branches also appear to be normal. 8. The inferior vena cava was normal in size, central venous pressure might be normal. DOPPLER: It detects mild mitral regurgitation, mild tricuspid regurgitation, and mild pulmonic regurgitation. The calculated pulmonary artery systolic pressure varies between 30-40 mmHg. Abnormal relaxation pattern was noted across the mitral valve leaflets as well as the mitral valve annulus consistent with features of grade 1 left ventricular diastolic dysfunction. IMPRESSION: 1. Technically limited study due to poor acoustic window. 2. Low normal global left ventricular systolic function. There is some features of left ventricular diastolic dysfunction manifested by abnormal relaxation, grade 1. 3. Aortic valve sclerosis without stenosis or aortic radiation. 4. Mitral annulus calcification with a mildly enlarged left atrium, and mild mitral regurgitation. 5. Mild tricuspid regurgitation with mild pulmonary hypertension. 6. Mild pulmonic regurgitation. 7. A small pericardial effusion was noted, no evidence of cardiac tamponade. MTDD
[2019-07-10 08:00] VITALS: BP 130/72
--- NOTE | 2019-07-10 08:18 | REP ---
PA and lateral chest: Comparison is 07/09/2019. The left thoracotomy tube is unchanged. The density inferiorly in the left lung has decreased slightly. The large density in the left apex is unchanged. Right lung is clear. Cardiac size is normal. Impression: The density inferiorly in the left lung has decreased. There is no other interval change. Electronically Signed by Roberto Andino MD 07/10/2019 08:09 A
[2019-07-10] MEDS: DOCUSATE SODIUM 100 MG CAP PO SCH ×2 (08:43→20:21)
[2019-07-10] MEDS: FLECAINIDE 50MG TABLET PO SCH ×2 (08:43→20:21)
[2019-07-10] MEDS: MOM 30ML SUSPENSION UDC PO SCH (08:43)
[2019-07-10] MEDS: ASCORBIC ACID 500 MG TAB PO SCH (08:43)
[2019-07-10] MEDS: PANTOPRAZOLE 40MG TAB (PROTONIX) PO SCH (08:43)
[2019-07-10] MEDS: amLODIPine 10 MG TAB PO SCH (08:43)
[2019-07-10] MEDS: METOPROLOL TART 50 MG TAB PO SCH ×2 (08:44→20:21)
[2019-07-10] MEDS: allopurinoL 100 MG TAB PO SCH ×2 (08:44→20:21)
[2019-07-10] MEDS: BENAZEPRIL 20 MG TAB PO SCH (08:44)
--- NOTE | 2019-07-10 11:01 | IPN ---
DATE: 07/10/2019 Ms. Nayak is doing well with her pain being well controlled at the chest tube insertion site. We awaiting for the needle biopsy to be done tomorrow. Her vital signs show a maximum temperature (t-max) of 98.0 with a heart rate that ranges between 68 and 71 and is in sinus rhythm. Respiratory rate of 16 to 18 without the use of accessory muscles, who is 91% saturated on room air. Blood pressure is ranging between 130/72 to 120/59. Her intake and output over the past 24 hours has been recorded as 570 in and 788 out for a negativity of 218 mL. She put out 138 mL from the chest tube. She weighs 68 kilos today compared to 67.5 kilos yesterday. PHYSICAL EXAMINATION: She has equal breath sounds on either side. I hear no wheezes, rhonchi, or rales. CARDIAC EXAM: Without murmurs, clicks, gallops or rubs. I cannot feel her point of maximum impulse (PMI). S1, S2 are normal. ABDOMEN: Soft, nontender. Bowel sounds are positive. There is no hepatomegaly. No costovertebral angle tenderness. EXTREMITIES: Show no pretibial edema. No calf tenderness. No differential swelling of the upper extremities. SKIN: Warm, dry and perfused without cyanosis or mottling, including that of the nail beds and knees. NECK: Supple. There is no jugular venous distention. No subcutaneous emphysema. Trachea is midline. MOUTH: Shows her mucous membranes to be pink and moist. Lips and commissures without lesions. There is no thrush. EYES: Show her pupils to be equal and reactive. Extraocular motion intact. Sclerae anicteric. NEUROLOGIC: Shows II through XII intact with gross motor and gross sensation intact. Gait is not tested. PSYCHIATRIC: Shows her to be awake and alert, oriented times three with appropriate mood and affect and conversational. Her white count today is 7.5 with a hemoglobin and hematocrit of 9.8 and 29.7 and a platelet count of 268. Differential shows 70% neutrophils, 10% lymphocytes, and 14% monocytes. There are no immature forms. No toxic granulations. Her electrolytes are normal with a BUN and creatinine of 20 and 0.97 with a glucose of 92 and a calcium of 8.2. Her chest x-ray today shows her lung full expanded to the chest wall. There is a little bit of blunting of the left costophrenic angle. Chest tube is in good placed. The left upper lobe mass of course is still there. IMPRESSION: 1. Pleural effusion left side. 2. Left upper lobe mass, probably malignant. 3. History of breast cancer of the right side. 4. Gout. 5. Hypertension. 6. Atrial fibrillation. On Xarelto now being held for the biopsy. PLAN AND DISCUSSION: We will await the biopsy tomorrow. I will keep her chest tube in to protect her from possible pneumothorax during the needle biopsy. If all goes well I will remove the chest tube on Thursday and send her home Thursday.
[2019-07-10 12:00] VITALS: BP 114/60
[2019-07-10] MEDS: PERCOCET 5MG/325MG TAB PO PRN (12:35)
--- NOTE | 2019-07-10 14:00 | IPNPDOC ---
Text Note Date of Service The patient was seen on 07/10/19. NOTE Subjective: Patient stated that her shortness of breath resolved. No any acute events. Patient denied fever, chills, nausea, vomiting, diarrhea Objective: VITAL SIGNS: Please see below. GENERAL APPEARANCE: Well-nourished, well-developed, not in apparent distress HEENT: Normocephalic, atraumatic. Mucous members moist and pink CARDIOVASCULAR: S1S2 LUNGS: Diminished lung sounds over the left lung field ABDOMEN: Abdomen is soft and nontender. MUSCULOSKELETAL: Range of motion is intact in all 4 extremities NEUROLOGICAL: Cranial nerves II-12 are grossly intact. Speech is not dysarthric Patient is 83 years old female with past medical history of breast cancer present hospital with increased shortness of breath. Patient was found to have left pleural effusion and left lung mass with lymphadenopathy. Dr. Ryan did pleuracentesis on 07/08/19. Oral targeted anticoagulation on hold. Lung biopsy scheduled on Thursday 1. Pleural effusion. Most likely secondary to malignancy, pleural fluid showed exudate Dr. Ryan did pleuracentesis on 07/08/19. Oral targeted anticoagulation on hold. Lung biopsy scheduled on Thursday Await cytology results will keep her chest tube in to protect her from possible pneumothorax during the needle biopsy 2. Lung mass on x-ray and CT scan. Suspicious for malignancy IR biopsy ordered Oncology consult after pathology report 3. Hypertension. Continue home cardioprotective medications 4. Atrial fibrillation. Heart rate is under control We will resume oral targeted anticoagulation after biopsy 5. Gout. Not in acute exacerbation Continue home allopurinol 6. DVT prophylaxis. Teds and sequentials as her Xarelto is on hold right now VS,Fishbone, I+O VS, Fishbone, I+O Laboratory Tests 07/10/19 04:41 Vital Signs Date Time Temp Pulse Resp B/P (MAP) Pulse Ox O2 Delivery O2 Flow Rate FiO2 07/10/19 12:35 18 07/10/19 12:00 98.8 68 114/60 (78) 92 Room Air 07/08/19 23:59 0.0 I&O- Last 24 Hours up to 6 AM 07/10/19 06:00 Intake Total 570 ml Output Total 707 ml Balance -137 ml ROSARIO HAMMER DO Jul 10, 2019 14:00
[2019-07-10 16:00] VITALS: BP 123/56
[2019-07-10 20:00] VITALS: BP 120/60
[2019-07-11] VITALS (9 sets, daily range): BP systolic 98–125; BP diastolic 44–60
[2019-07-11] MEDS: NORCO, ANEXSIA 5/325MG TABLET (HYDROcodone/ACETAMINOPHEN) PO PRN (01:19)
[2019-07-11] MEDS: LEVALBUTEROL 1.25 MG/0.5 ML CONCENTRATE NEB NEB SCH ×4 (01:51→20:52)
[2019-07-11] MEDS: SLF 3 ML SYR IV SCH ×3 (05:05→20:13)
[2019-07-11 05:32] LABS: BASO % 0.3 % (0.0-1.0); EOS # 0.1 10^3/uL (0.0-0.5); EOS % 1.3 % (0.0-3.0); HEMATOCRIT 28.9 % (36.0-47.0); HEMOGLOBIN 9.5 g/dl (12.0-15.5); LYMPH # 0.6 10^3/uL (1.5-5.0); LYMPH % 6.2 % (24.0-44.0); MEAN CORPUSCULAR HEMOGLOBIN 30.5 pg (27.0-33.0); MEAN CORPUSCULAR HGB CONC 32.9 g/dl (32.0-36.5); MEAN CORPUSCULAR VOLUME 92.9 fl (80.0-96.0); MONO # 1.1 10^3/uL (0.0-0.8); MONO % 12.6 % (0.0-5.0); NEUTROPHILS # 7.1 10^3/uL (1.5-8.5); NEUTROPHILS % 79.2 % (36.0-66.0); PLATELET COUNT, AUTOMATED 268 10^3/uL (150-450); RED BLOOD COUNT 3.11 10^6/uL (4.00-5.40)
[2019-07-11 05:51] LABS: CALCIUM LEVEL 8.1 MG/DL (8.8-10.2); CREATININE FOR GFR 0.95 MG/DL (0.55-1.30); GLOMERULAR FILTRATION RATE 59.7 (>32); POTASSIUM SERUM 4.6 MEQ/L (3.5-5.1)
--- NOTE | 2019-07-11 07:30 | REP ---
PA and lateral chest: Comparison is 07/10/2019. The left thoracotomy tube is unchanged. The density inferiorly in the left lung is unchanged. The large left apical density is unchanged. Right lung remains clear. Cardiac size is normal. Impression: There is no interval change. Electronically Signed by Roberto Andino MD 07/11/2019 07:22 A
[2019-07-11] MEDS: PERCOCET 5MG/325MG TAB PO PRN ×3 (08:20→20:12)
[2019-07-11] MEDS: MOM 30ML SUSPENSION UDC PO SCH (09:00)
[2019-07-11] MEDS: DOCUSATE SODIUM 100 MG CAP PO SCH ×2 (09:00→20:13)
[2019-07-11] MEDS: FLECAINIDE 50MG TABLET PO SCH ×2 (09:06→20:12)
[2019-07-11] MEDS: ASCORBIC ACID 500 MG TAB PO SCH (09:07)
[2019-07-11] MEDS: METOPROLOL TART 50 MG TAB PO SCH ×2 (09:07→20:12)
[2019-07-11] MEDS: BENAZEPRIL 20 MG TAB PO SCH (09:07)
[2019-07-11] MEDS: allopurinoL 100 MG TAB PO SCH ×2 (09:07→20:12)
[2019-07-11] MEDS: amLODIPine 10 MG TAB PO SCH (09:07)
[2019-07-11] MEDS: PANTOPRAZOLE 40MG TAB (PROTONIX) PO SCH (09:08)
[2019-07-11 09:24] LABS: INR 1.2
[2019-07-11] MEDS ORDERED: LIDOCAINE 1% MDV 20ML VIAL As Ordered ONE (11:56)
--- NOTE | 2019-07-11 12:58 | IPNPDOC ---
Subjective Date Seen The patient was seen on 07/11/19. Subjective Chief Complaint/HPI Ms Nayak is seen sitting up in bed this morning with family present. She reports her breathing remains improved with the chest tube. When she exerts herself, she sometimes has a dry cough, causing pain over chest tube insertion site. Otherwise, she has manageable pain. Pt denied any new or worsening issues at this time. She understands she is having a Bx of the lung this morning and has discussed it with Dr. Ryan. Other systems as noted in HPI Objective Physical Examination General Exam: Positive: Alert, Cooperative, No Acute Distress Eye Exam: Positive: Conjunctiva & lids normal; Negative: Sclera icteric ENT Exam: Positive: Atraumatic, Mucous membr. moist/pink, Pharynx Normal Neck Exam: Positive: Supple; Negative: thyromegaly Chest Exam: Positive: Clear to auscultation (no crackles or wheezing to auscultation; good b/l air movement ), Other (chest tube in place; scant drainage; little TTP around insertion site. ) Heart Exam: Positive: Rate Normal, Regular Rhythm, Normal S1, Normal S2, Murmurs (2-3/6 SM ); Negative: Rubs Telemetry: Positive: No significant arrhythmia Abdomen Exam: Positive: Normal bowel sounds, Soft; Negative: Tenderness Extremity Exam: Negative: Clubbing, Cyanosis, Edema Skin Exam: Positive: Nl turgor and temperature Neuro Exam: Positive: Normal Speech Psych Exam: Positive: Mood NL Assessment /Plan Assessment Ms. 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 Pt has a PMHx which includes: Hypertension, A-fib, BCC (nose), R sided breast ca (1994) s/p right sided mastectomy, 27 lymph nodes removed), Gout. Pt is also a former smoker who quit 40 years ago. Pt presented to [facility] reporting she has been sick since [place] with worsening dyspnea, new onset dry cough, and 5-6lb unintentional weight loss (over 3 months), some odynophagia. Pt further reported some nondescript LUQ/lower chest discomfort. CT Chest without contrast IMPRESSION: 1. Large left upper lobe pulmonary parenchymal mass measures 5.4 x 6.2 x 5.7 cm, likely malignant. Confirmation with percutaneous image guided biopsy could be obtained if clinically desired. 2. Moderate loculated pleural effusion. 3. Multiple bilateral pulmonary parenchymal nodules measuring up to 8 mm in the left upper lobe. Findings worrisome for hematogenous dissemination of tumor. 4. Ground-glass opacity in the right upper lobe measures 1.8 x 1.3 x 2.1 cm and in the superior segment of the right lower lobe measuring 1 x 2.3 x 2.6 cm. Follow-up pending evaluation of the left upper lobe mass. 5. Bronchiectasis involving the posterior segmental bronchi of the right upper lobe. 6. Tree-in-bud opacities demonstrated in the peripheral aspect of the right upper lobe, lateral aspect of the right middle lobe, and right lower lobe consistent with foci of age indeterminate bronchiolitis/alveolitis. 7. There is enlargement of the central pulmonary arteries, findings which can be associated with pulmonary arterial hypertension which should be correlated clinically. 8. There are gallstones present. No evidence of cholecystitis demonstrated. Echo shows Low normal global left ventricular systolic function. There is some features of left ventricular diastolic dysfunction manifested by abnormal relaxation, grade 1. Left sided pleural effusion 2/2 Left upper lobe mass, probably malignant - pleuracentesis & chest tube placed 07/08/19, provided symptomatic relief of dyspnea and pt is tolerating well with current pain medications - serial/daily CXRs - see EMR - cytology results - pending - scheduled biopsy of the lung mass 07/11/2019 - possible chest tube removal today or tomorrow and d/c Thursday per Dr. Ryan - continued management per thoracic surgery Left Upper Lobe mass -for biopsy on 07/11/19 A-Fib - Xarelto on hold for biopsy today - rate and rhythm controlled with Metoprolol and Flecainide - continue telemetry HTN - as above plus continue Amlodipine, Lotensin and Furosemide Gout - continue Allopurinol History of right-sided breast cancer (1994) -status post right-sided mastectomy and removal of 27 lymph nodes Plan/VTE VTE Prophylaxis Ordered?: No (Xarelto on hold for needle biopsy today ) VS, I&O, 24H, Fishbone Vital Signs/I&O Vital Signs Date Time Temp Pulse Resp B/P (MAP) Pulse Ox O2 Delivery O2 Flow Rate FiO2 07/11/19 09:07 125/56 07/11/19 09:07 70 07/11/19 08:50 17 95 Room Air 07/11/19 08:00 98.5 07/08/19 23:59 0.0 l I&O- Last 24 Hours up to 6 AM 07/11/19 05:59 Intake Total 1180 ml Output Total 523 ml Balance 657 ml Laboratory Data 24H LABS Laboratory Tests 2 07/11/19 05:05: Immature Granulocyte % (Auto) 0.4, Neutrophils (%) (Auto) 79.2H, Lymphocytes (%) (Auto) 6.2L, Monocytes (%) (Auto) 12.6H, Eosinophils (%) (Auto) 1.3, Basophils (%) (Auto) 0.3, Neutrophils # (Auto) 7.1, Lymphocytes # (Auto) 0.6L, Monocytes # (Auto) 1.1H, Eosinophils # (Auto) 0.1, Basophils # (Auto) 0.0, Nucleated Red Blood Cells % (auto) 0.0, Anion Gap 6L, Glomerular Filtration Rate 59.7, Calcium Level 8.1L 07/11/19 08:33: Prothrombin Time 15.0H, Prothromb Time International Ratio 1.20, Activated Partial Thromboplast Time 37.0 CBC/BMP Laboratory Tests 07/11/19 05:05 Microbiology Microbiology 07/08/19 Acid Fast Stain, Received Pending 07/08/19 Mycobacterial Culture, Received Pending 07/08/19 Fungal Smear, Received Pending 07/08/19 Fungal Culture, Received Pending 07/08/19 Gram Stain - Final, Complete 07/08/19 Anaerobic Culture - Final, Complete 07/08/19 Body Fluid Culture - Final, Complete REY BARNES PA-C Jul 11, 2019 12:58 ISADORA PARRA MD Jul 13, 2019 05:24
--- NOTE | 2019-07-11 16:40 | REP ---
CT-GUIDED LEFT UPPER LOBE LUNG BIOPSY The procedure was performed under the direct supervision of Dr. Douglass. The patient has a history of A 5.4 x 6.2 x 5.7 cm mass in the left upper lobe seen on a previous CT scan dated 07/07/2019. The risks and benefits of the procedure were explained to the patient and informed consent was obtained. The left upper lobe lung mass was localized using CT guidance. The skin was prepped and draped in a sterile fashion. 1% lidocaine was used as a local anesthetic. Using CT guidance a 19/20 gauge coaxial needle biopsy system was inserted and advanced into the mass. Five core biopsy samples were obtained and sent to lab. The patient tolerated the procedure well and there were no immediate complications. After the appropriate amount of monitored convalescence the patient was discharged from the department. Electronically Signed by MARTIN Flores 07/11/2019 03:07 P Electronically Signed by Omar Douglass MD 07/11/2019 04:31 P
--- NOTE | 2019-07-11 20:00 | IPN ---
DATE: 07/11/2019 Ms. Nayak was seen and examined this morning at bedside. She states that she is doing relatively well. Her pain on the right where her chest tube is inserted is well controlled. She does have a baseline ache, but it is tolerable. She will be going down for a needle biopsy of her lung lesion later today. She was stable overnight. She had no overnight events reported. PHYSICAL EXAMINATION: VITAL SIGNS: Temperature 97.8, pulse 68, respirations 18, blood pressure 110/60 (70), pulse oximetry 90% on room air, no accessory muscle use. Intake total until midnight was 960 mL, output total was 523, with a net balance of +423 mL. Chest tube drainage in the last 24 hours was 23 mL accumulative, since placement was 387 mL. GENERAL: This is a very pleasant, 83-year-old female who does not appear in acute distress, sitting up in bed, appropriately answering questions, in no acute distress, no respiratory muscle use. HEENT: Atraumatic, normocephalic. Pupils equal, round, and reactive. No jugular venous distention (JVD) noted, no lymphadenopathy, no tenderness to palpation. LUNGS: Equal breath sounds bilaterally, no audible wheezing, some mild crackles at the bases bilaterally, no rhonchi noted. CARDIAC: S1, S2 sounds, regular rate and rhythm, no audible murmurs, rubs, or gallops. CHEST: Chest tube inserted in the left anterior wall, no drainage noted, slightly tender to palpation, very minimal. ABDOMEN: Soft, nontender, positive bowel sounds in all four quadrants. EXTREMITIES: No lower extremity edema or calf tenderness. SKIN: Warm, dry, perfused, without cyanosis. LABORATORIES: WBC 9.0, hemoglobin 9.5, hematocrit 28.9, platelets 268. Chemistry: Sodium 135, potassium 4.6, chloride 102, carbon dioxide 27, anion gap 6, BUN 20, creatinine 0.95, fasting glucose 105, calcium 8.1. Microbiology: Body fluid culture negative for growth. Gram stain of anaerobic cultures negative for growth. Acid-fast mycobacterial fungal smear and fungal cultures are currently pending. IMAGING: Chest x-ray from this morning was reviewed by me which shows no change from the previous chest x-rays. She continues to have a lung lesion in the upper left chest wall. Very minimal pleural effusion on the left lung base. Thoracotome left tube is in place. Cardiac size appears normal. IMPRESSION: 1. Pleural effusion left side. 2. Left upper lobe mass, possibly malignant. 3. History of breast cancer of the right side. 4. Gout. 5. Hypertension. 6. Atrial fibrillation on Xarelto outpatient, currently held for needle biopsy later today. PLAN AND DISCUSSION: She will be going down for a needle biopsy later today. Will continue with the chest tube which has been off of suction. The chest tube has been placed as double prevention of hospital pneumothorax from the needle biopsy later today. After the needle biopsy later this afternoon, we will assess the patient and see if we can possibly remove the chest tube later today or tomorrow morning for possible discharge Thursday. My faculty preceptor for this patient encounter was physically present during the encounter and was fully available. All aspects of the patient interview, examination, medical decision making process, and medical care plan development were reviewed and approved by the faculty preceptor. The faculty preceptor is aware and concurs with the plan as stated in the body of this note and will attest to such by his/her cosignature.
[2019-07-12] VITALS: BP 112/58
[2019-07-12] MEDS: LEVALBUTEROL 1.25 MG/0.5 ML CONCENTRATE NEB NEB SCH ×3 (02:00→12:51)
[2019-07-12 04:00] VITALS: BP 110/60
[2019-07-12 04:08] LABS: BASO # 0.1 10^3/uL (0.0-0.2); BASO % 0.7 % (0.0-1.0); EOS # 0.3 10^3/uL (0.0-0.5); EOS % 4.7 % (0.0-3.0); HEMATOCRIT 28.4 % (36.0-47.0); HEMOGLOBIN 9.3 g/dl (12.0-15.5); LYMPH # 0.8 10^3/uL (1.5-5.0); LYMPH % 11.7 % (24.0-44.0); MEAN CORPUSCULAR HEMOGLOBIN 30.8 pg (27.0-33.0); MEAN CORPUSCULAR HGB CONC 32.7 g/dl (32.0-36.5); MONO # 1.1 10^3/uL (0.0-0.8); MONO % 15.1 % (0.0-5.0); NEUTROPHILS # 4.7 10^3/uL (1.5-8.5); NEUTROPHILS % 67.2 % (36.0-66.0); PLATELET COUNT, AUTOMATED 286 10^3/uL (150-450); RED BLOOD COUNT 3.02 10^6/uL (4.00-5.40)
[2019-07-12 04:29] LABS: BLOOD UREA NITROGEN 19 MG/DL (7-18); CALCIUM LEVEL 8.2 MG/DL (8.8-10.2); CARBON DIOXIDE LEVEL 29 MEQ/L (21-32); CHLORIDE LEVEL 105 MEQ/L (98-107); CREATININE FOR GFR 0.86 MG/DL (0.55-1.30); GLOMERULAR FILTRATION RATE > 60.0 (>32); GLUCOSE, FASTING 91 MG/DL (70-100); POTASSIUM SERUM 4.3 MEQ/L (3.5-5.1); SODIUM LEVEL 138 MEQ/L (136-145)
[2019-07-12] MEDS: SLF 3 ML SYR IV SCH ×2 (06:00→15:10)
[2019-07-12 08:00] VITALS: BP 132/60
--- NOTE | 2019-07-12 08:05 | REP ---
PA and lateral chest: Comparison is 07/11/2019. The left thoracotomy tube is unchanged. The increased density inferiorly in the left hemithorax is unchanged. The large left apical density is unchanged. Right lung is clear. Cardiac size is normal. Impression: There is no interval change. Electronically Signed by Roberto Andino MD 07/12/2019 07:56 A
[2019-07-12] MEDS: BENAZEPRIL 20 MG TAB PO SCH (08:44)
[2019-07-12] MEDS: METOPROLOL TART 50 MG TAB PO SCH (08:44)
[2019-07-12] MEDS: PANTOPRAZOLE 40MG TAB (PROTONIX) PO SCH (08:46)
[2019-07-12] MEDS: PERCOCET 5MG/325MG TAB PO PRN (08:46)
[2019-07-12] MEDS: FUROSEMIDE 20 MG TAB PO SCH (08:46)
[2019-07-12] MEDS: ASCORBIC ACID 500 MG TAB PO SCH (08:46)
[2019-07-12 08:47] VITALS: BP 132/60
[2019-07-12] MEDS: allopurinoL 100 MG TAB PO SCH (08:47)
[2019-07-12] MEDS: DOCUSATE SODIUM 100 MG CAP PO SCH (08:47)
[2019-07-12] MEDS: MOM 30ML SUSPENSION UDC PO SCH (08:47)
[2019-07-12] MEDS: amLODIPine 10 MG TAB PO SCH (08:47)
[2019-07-12] MEDS: FLECAINIDE 50MG TABLET PO SCH (08:47)
--- NOTE | 2019-07-12 11:32 | IPN ---
DATE: 07/12/2019 SUBJECTIVE: Ms. Nayak was seen and examined this morning at bedside rounds. She appears in no distress. She has relatively no complaints today and would like to know when she can have the chest tube out so she can go home later today if possible. She tolerated yesterday's chest biopsy by R with no problems. She is ambulating out of the room without any issues as well. She ambulated down to x-ray to get her PA and lateral views of her chest. She continues to state that her appetite has not returned. She does not like the taste of the food here and possible will get better when she gets home. She denies any constipation or any urinary frequency or dysuria. She has no complaints today. PHYSICAL EXAMINATION: VITALS: Temperature 98.0, pulse 74, respirations 18, blood pressure 132/60 (MAP 84), pulse ox 94% on room air. GENERAL: This is a very pleasant 83-year-old old female sitting in bed who does not appear in any acute distress appropriately answering questions. No respiratory distress as well. HEENT: Atraumatic, normocephalic. Pupils, equal, round and reactive. Moist mucous membranes. No oral thrush noted. No lymphadenopathy. Trachea is midline. LUNGS: Expiratory rhonchi appreciated on the upper base that actually improves when clearing of the throat. Minimal bibasilar crackles appreciated bilaterally. No dullness to percussion noted. CARDIAC: Irregularly irregular. The patient is in sinus rhythm on telemetry with occasional arrhythmias, rate controlled at 60-70 beats per minute. No audible murmurs, rubs or gallops though. ABDOMEN: Soft, nontender. Positive bowel sounds in all four quadrants. EXTREMITIES: No lower extremity edema. Hematology: WBC 7.0, hemoglobin 9.3, hematocrit 20.4, platelets 286. Chemistry: Sodium 138, potassium 4.3, chloride 105, carbon dioxide 29, anion gap 4, BUN 19, creatinine 0.86, fasting glucose 91, calcium 8.2. Chest x-ray shows left thoracotomy tube in place, increased density inferiorly of the left pneumothorax is unchanged with a left apical density that has changed as well. Pathology: Fine needle aspiration of the left lung lesion currently still pending. ASSESSMENT/PLAN: 1. Pleural effusion left side. 2. Left upper lobe mass possibly malignancy. 3. History of breast cancer on the right side. 4. Gout. 5. Hypertension. 6. Atrial fibrillation on Xarelto. DISCUSSION: We will remove the chest tube this morning for the patient is clinically stable with no problems. We will monitor until 4-o'clock this evening. If she has no acute interval changes, she can be discharged to go home and to followup with Dr. Ryan in 1 week. For dressing changes, we recommend that she remove the dressing in the morning after discharge and expose it to air. If there is weeping, she is allowed to put a light dressing to protect her clothing if needed. For pain control, she can use Tylenol and Advil as needed. Discharge orders from our end have been placed. Will let the primary team finalize later this evening.
[2019-07-12 12:00] VITALS: BP 102/46
--- NOTE | 2019-07-12 14:44 | DS.PDOC ---
Discharge Summary General Date of Admission Jul 07, 2019 at 18:30 Date of Discharge 07/12/2019 Discharge Summary PROCEDURES PERFORMED DURING STAY: Thoracentesis; FNA ADMITTING DIAGNOSES: 1. Pleural effusion 2. Lung mass 3. Hypertension 4. Atrial fibrillation 5. Gout DISCHARGE DIAGNOSES: 1. Pleural effusion 2. Lung mass 3. Hypertension 4. Atrial fibrillation 5. Gout COMPLICATIONS/CHIEF COMPLAINT: Pleural Effusion. HISTORY OF PRESENT ILLNESS: "Concepcion is an 83-year-old female who was admitted directly to the hospital after concerned that she has a malignant pleural effusion. She has a past medical history pertinent for right sided breast cancer that was diagnosed in 1994, status post right-sided mastectomy with removal of 27 lymph nodes, as well as chemotherapy. All of her care was done in [place]. She presents to [facility] saying that she has been sick since with a dry cough. It has been about the same or slightly worsened since it started, and there has been no sputum production or hemoptysis. Sometimes a cold drink or walking into cold air will start some coughing fits, other times it begins without any inciting event. Along with her cough, she has had an insidious onset of shortness of breath that started some time between [place] and now. Her shortness of breath has gotten worse, though she denies orthopnea or paroxysmal nocturnal dyspnea. It is slightly worse with exertion, however she has not really noticed any other remitting or exacerbating factors. She also reports that she has lost 5-6 pounds over the last 3 months, and feels like sometimes food gets stuck in her throat. Periodically she will have some pain with swallowing. She says that sometimes she will have intermittent chest discomfort in the left lower chest/left upper quadrant, however it does not last for a long and she cannot describe it in detail. Periodically she will have some midthoracic back pain, which is chronic for her. She will also have nosebleeds if she blows her nose too hard. Her social history is significant for a greater than [id number] smoking history, however she did quit about 40 years ago. She also used to work in a [employer] placement. She lives alone in an old house, she is unsure as to whether or not it has led or asbestos in it." HOSPITAL COURSE: Pt was admitted to the hospital with telemetry. Dr. Ryan was consulted and she had thoracentesis on 07/08/19 with significant relief of her dyspnea. Serial CXRs were completed as documented in the EMR. Pathology and cytology results are still pending. Pleural C&S are both negative to date. We are also awaiting the results of AFB, Myco and fungal tests. Pt then underwent FNA on 07/11 and the pathology of that biopsy is pending. Today, pt is asymptomatic and has reportedly requested her chest tube is removed early so she may go home today. Her chest tube has been removed, and she is being monitored by CT service until 4pm for discharge. She will follow-up with Dr. Ryan in 1 week. DISCHARGE MEDICATIONS: Please see below. ALLERGIES: Please see below. PHYSICAL EXAMINATION ON DISCHARGE: VITAL SIGNS: Please see below. General Exam: Positive: Alert, Cooperative, No Acute Distress Eye Exam: Positive: Conjunctiva & lids normal; Negative: Sclera icteric ENT Exam: Positive: Atraumatic, Mucous membr. moist/pink, Pharynx Normal Neck Exam: Positive: Supple; Negative: thyromegaly Chest Exam: Positive: Clear to auscultation (no crackles or wheezing to auscultation; good b/l air movement ), Other (chest tube in place; scant drainage; little TTP around insertion site. ) Heart Exam: Positive: Rate Normal, Regular Rhythm, Normal S1, Normal S2, M urmurs (2-3/6 SM ); Negative: Rubs Telemetry: Positive: No significant arrhythmia Abdomen Exam: Positive: Normal bowel sounds, Soft; Negative: Tenderness Extremity Exam: Negative: Clubbing, Cyanosis, Edema Skin Exam: Positive: Nl turgor and temperature Neuro Exam: Positive: Normal Speech Psych Exam: Positive: Mood NL LABORATORY DATA: Please see below. IMAGING: Please see CXRs in EMR CT Chest without contrast IMPRESSION: 1. Large left upper lobe pulmonary parenchymal mass measures 5.4 x 6.2 x 5.7 cm, likely malignant. Confirmation with percutaneous image guided biopsy could be obtained if clinically desired. 2. Moderate loculated pleural effusion. 3. Multiple bilateral pulmonary parenchymal nodules measuring up to 8 mm in the left upper lobe. Findings worrisome for hematogenous dissemination of tumor. 4. Ground-glass opacity in the right upper lobe measures 1.8 x 1.3 x 2.1 cm and in the superior segment of the right lower lobe measuring 1 x 2.3 x 2.6 cm. Follow-up pending evaluation of the left upper lobe mass. 5. Bronchiectasis involving the posterior segmental bronchi of the right upper lobe. 6. Tree-in-bud opacities demonstrated in the peripheral aspect of the right upper lobe, lateral aspect of the right middle lobe, and right lower lobe consistent with foci of age indeterminate bronchiolitis/alveolitis. 7. There is enlargement of the central pulmonary arteries, findings which can be associated with pulmonary arterial hypertension which should be correlated clinically. 8. There are gallstones present. No evidence of cholecystitis demonstrated. ACTIVITY: [As tolerated]. DIET: As tolerated DISCHARGE PLAN: Discharge home with follow-up with and per Dr. Ryan DISPOSITION: Discharge home DISCHARGE INSTRUCTIONS: 1. see d/c orders ITEMS TO FOLLOWUP ON ON OUTPATIENT: 1. see d/c orders DISCHARGE CONDITION: [Stable]. TIME SPENT ON DISCHARGE: 33 minutes Vital Signs/I&Os Vital Signs Date Time Temp Pulse Resp B/P (MAP) Pulse Ox O2 Delivery O2 Flow Rate FiO2 07/12/19 12:00 97.8 67 18 102/46 (64) 91 Room Air 07/08/19 23:59 0.0 I&O- Last 24 Hours up to 6 AM 07/12/19 06:00 Intake Total 300 ml Output Total 33 ml Balance 267 ml Laboratory Data Labs 24H Laboratory Tests 2 07/12/19 03:44: Immature Granulocyte % (Auto) 0.6, Neutrophils (%) (Auto) 67.2H, Lymphocytes (%) (Auto) 11.7L, Monocytes (%) (Auto) 15.1H, Eosinophils (%) (Auto) 4.7H, Basophils (%) (Auto) 0.7, Neutrophils # (Auto) 4.7, Lymphocytes # (Auto) 0.8L, Monocytes # (Auto) 1.1H, Eosinophils # (Auto) 0.3, Basophils # (Auto) 0.1, Nucleated Red Blood Cells % (auto) 0.0, Anion Gap 4L, Glomerular Filtration Rate > 60.0, Calcium Level 8.2L CBC/BMP Laboratory Tests 07/12/19 03:44 Microbiology Microbiology 07/08/19 Acid Fast Stain, Received Pending 07/08/19 Mycobacterial Culture, Received Pending 07/08/19 Fungal Smear, Received Pending 07/08/19 Fungal Culture, Received Pending 07/08/19 Gram Stain - Final, Complete 07/08/19 Anaerobic Culture - Final, Complete 07/08/19 Body Fluid Culture - Final, Complete Discharge Medications Scheduled Allopurinol (Allopurinol) 100 Mg Tablet, 100 MG PO BID, (Reported) Amlodipine Besylate (Amlodipine Besylate) 10 Mg Tablet, 10 MG PO DAILY, (Reported) Ascorbic Acid (Vitamin C) 500 Mg Tablet, 500 MG PO DAILY, (Reported) Benazepril HCl (Benazepril HCl) 40 Mg Tablet, 40 MG PO DAILY, (Reported) Carboxymethylcellulose Sodium (Refresh Tears) 15 Ml Drops, 1 DROP OU BID, (Reported) Cholecalciferol (Vitamin D3) (Vitamin D3) 2,000 Unit Tab.chew, 2,000 UNIT PO SARAH LY, (Reported) Flecainide Acetate (Flecainide Acetate) 50 Mg Tablet, 50 MG PO BID, (Reported) Furosemide (Furosemide) 20 Mg Tablet, 20 MG PO 3XW, (Reported) JAYAES, SAI, SAT Metoprolol Tartrate (Metoprolol Tartrate) 100 Mg Tablet, 50 MG PO BID, (Reported) Rivaroxaban (Xarelto) 20 Mg Tablet, 20 MG PO DAILY, (Reported) Scheduled PRN Acetaminophen (Tylenol Extra Strength) 500 Mg Tablet, 1,000 MG PO TID PRN for PAIN, (Reported) Allergies Coded Allergies: No Known Allergies (Unverified , 07/07/19) REY BARNES PA-C Jul 12, 2019 14:44
[2019-07-12 16:00] VITALS: BP 130/52
== END 2019-07-12 17:30 | disposition home or self-care (01) | DRG 181 ==
LOC: M PCU 18:30
PROVIDERS: ADMIT Internal Medicine; ATTEND Internal Medicine Nephrology
PROC: 0W9B00Z Drainage of Left Pleural Cavity with Drainage Device, Open Approach (ICD-10-PCS; principal; 2019-07-08)
PROC: 0BBG3ZX Excision of Left Upper Lung Lobe, Percutaneous Approach, Diagnostic (ICD-10-PCS; 2019-07-11)
DX: C34.12 Malignant neoplasm of upper lobe, left bronchus or lung (principal); J91.0 Malignant pleural effusion; I48.20 Chronic atrial fibrillation, unspecified; M10.9 Gout, unspecified; I10 Essential (primary) hypertension; Z85.3 Personal history of malignant neoplasm of breast; Z90.11 Acquired absence of right breast and nipple; Z85.828 Personal history of other malignant neoplasm of skin; Z98.41 Cataract extraction status, right eye; Z98.42 Cataract extraction status, left eye; Z87.891 Personal history of nicotine dependence; Z79.01 Long term (current) use of anticoagulants; Z79.899 Other long term (current) drug therapy

== ENCOUNTER → 2019-07-21 | Outpatient (CLI) | payer MEDICARE ==
[~2019-07-21] MED LIST: ACET-897 PO; ALLO100T PO; AMLO10TA5 PO; BENA40TA5 PO; FLEC25TA PO; FURO20TA2 PO; METO100T5 PO; REFR0.5D8 OU; VITA-158 PO; VITA1CHW7 PO; XARE20TA PO
--- NOTE | 2019-07-21 11:02 | REP ---
CHEST, TWO VIEWS: Two views of the chest are performed and compared to prior study of 07/12/2019. Left apical consolidative opacity is unchanged. In the left lung base, parenchymal opacities seen on the prior study appear mildly improved. There is left inferolateral pleural-based opacity, which may be slightly increased. Right lung remains clear. Cardiomediastinal silhouette is unchanged. There are degenerative changes of the spine. IMPRESSION: Left apical consolidative opacity, unchanged. Probable mild improvement of left basilar parenchymal opacity and possible slight increase in left inferior pleural-based opacity. Electronically Signed by Roberto Zayas MD 07/21/2019 07:45 P
== END ==
LOC: M RAD 08:49
PROVIDERS: ATTEND Thoracic Surgery (Cardiothoracic Vascular Surgery)
DX: J90 Pleural effusion, not elsewhere classified (principal)

== ENCOUNTER → 2019-08-01 | Outpatient (CLI) | payer MEDICARE ==
[~2019-08-01] MED LIST changes: +DEXA4TA PO; +FOLI1TAB11 PO; +K-TA10TA2 PO; +PROC5TA PO
--- NOTE | 2019-08-01 17:06 | REP ---
PET/CT: History: Staging lung cancer. Non-small cell left upper lobe. Comparisons: Comparison CT study July 07, 2019. TECHNIQUE: 53 minutes following the intravenous injection of a 808.68 mCi dose of F-18 FDG, three-dimensional PET scintigraphy is acquired from the skull base to the proximal thighs. Triplanar noncontrast CT scanning is acquired through the same anatomic range for attenuation correction, and image registration with scan parameters optimized to minimize radiation exposure to the patient. PET scintigraphy and CT datasets were fused and displayed on a workstation with multiplanar and projection display capability. PET/CT Findings: Head and neck soft tissues are unremarkable. There is extensive hypermetabolic uptake in the large mass in the left upper lobe. Maximum standard uptake value within this large mass is 30.7. There is extensive hypermetabolic pleural uptake throughout much of the left hemithorax consistent with pleural metastatic disease. The pleural uptake ranges up to 9.25. There is hypermetabolic jorge alberto uptake in the left hilus, 15.37 and in the left central mediastinum, 14.37. Hypermetabolic uptake is seen in a small 1 cm nodule in the right upper lobe with maximum SUV value 5.95. There is a small hypermetabolic nodule beneath the capsule of the liver in the right lobe near the dome of the diaphragm with maximum SUV value 5.17. Lastly, there are three foci of hypermetabolic uptake in the skeleton. There is one in the mid diaphysis of the left humerus where maximum standard uptake value is 7.95. There is a hypermetabolic sclerotic lesion on the left side of the L1 vertebral body with maximum standard uptake value 3.81. There is a more avid posterior element lesion on the right side transverse process and lamina at L3. Impression: The large left upper lobe mass is hypermetabolic. There is evidence of hypermetabolic disease diffusely involving the left pleural space with hepatic and skeletal metastatic sites. There is a small focus of hypermetabolic uptake in a nodule in the right lung apex as well. Electronically Signed by Omar Douglass MD 08/02/2019 07:54 A
== END ==
LOC: M PLARAD 12:59
PROVIDERS: ATTEND Internal Medicine Hematology & Oncology
DX: C34.12 Malignant neoplasm of upper lobe, left bronchus or lung (principal)
CPT/HCPCS: 78815; A9552

== ENCOUNTER → 2019-08-05 | Outpatient (CLI) | payer MEDICARE ==
[~2019-08-05] MED LIST changes: -DEXA4TA PO; -FOLI1TAB11 PO; -K-TA10TA2 PO; -PROC5TA PO; +PROHANCE 279.3MG/ML 15ML VIAL (A9576) As Ordered ONE
--- NOTE | 2019-08-05 12:22 | REP ---
MRI BRAIN WITHOUT AND WITH IV CONTRAST: HISTORY: Small cell lung carcinoma staging. No comparison brain imaging. TECHNIQUE: Axial and sagittal imaging planes are utilized for T1 and T2-weighted scans. Sequences include spin-echo, fast spin echo, FLAIR, and diffusion weighted sequences. GADOLINIUM ENHANCEMENT DOSE: 12 mL of intravenous ProHance. FINDINGS: No bony calvarial lesion is seen. Craniocervical junction and upper cervical cord are normal in appearance. Visualized paranasal sinuses are clear. No intraorbital abnormality. There is no evidence of intracranial mass lesion. Diffusion-weighted scans show no focus of restricted diffusion to suggest acute ischemia or other cause of restricted diffusion. There are moderate small vessel changes in the periventricular white matter bilaterally. There is no abnormal contrast enhancement intracranially to suggest intracranial metastasis. No extra-axial fluid collection, infarct, mass or midline shift is observed. IMPRESSION: Generalized volume loss and small vessel changes. No MR evidence of intracranial metastatic disease. Electronically Signed by Omar Douglass MD 08/05/2019 12:48 P
== END ==
LOC: M RAD 09:41
PROVIDERS: ATTEND Internal Medicine Hematology & Oncology
DX: I67.82 Cerebral ischemia (principal); G31.1 Senile degeneration of brain, not elsewhere classified; C34.90 Malignant neoplasm of unspecified part of unspecified bronchus or lung
CPT/HCPCS: 70553; A9576

== ENCOUNTER → 2019-08-24 | Outpatient (CLI) | payer MEDICARE ==
[~2019-08-24] MED LIST changes: +DEXA4TA PO; +FOLI1TAB11 PO; +LIDOCAINE 1% MDV 20ML VIAL As Ordered ONE; +MIDAZOLAM INJ 2 MG/2 ML VIAL (J2250) As Ordered ONE; +PROC5TA PO; -PROHANCE 279.3MG/ML 15ML VIAL (A9576) As Ordered ONE; +ceFAZolin 2 GM/D5W 50 ML IV BAG (J0690 PER 500MG) As Ordered ONE; +diphenhydrAMINE 50MG/ML VIAL (J1200) As Ordered ONE; +fentaNYL 100 MCG/2 ML INJECTION (J3010) As Ordered ONE
--- NOTE | 2019-08-24 16:02 | IRHP ---
[facility] IR Pre-Procedure H & P General Date of Service: Aug 24, 2019 Procedure: Same Day Surgery Interval History and Physical I have seen the patient and reviewed last H & P performed within 30 days. There is no significant interval change. History of Present Illness Chief Complaint The patient is a 84-year-old female admitted with a reason for visit of NSCLC. PRE-PROCEDURE DIAGNOSIS: lung ca HEART: normal rate. LUNGS: normal breathing at rest. ASA Classification ASA Classification: II-Mild systemic disease, III-Severe systemic dis. Mallampati Score: II NPO: Yes Problems with prior sedation: No Obstructive Sleep Apnea: No Plan moderate sedation Allergies Coded Allergies: calcium (Verified Allergy, Unknown, 07/27/19) pt states cripples pt Home Medications Scheduled Allopurinol (Allopurinol), 100 MG PO BID, (Reported) Amlodipine Besylate (Amlodipine Besylate), 10 MG PO DAILY, (Reported) Benazepril HCl (Benazepril HCl), 40 MG PO DAILY, (Reported) Carboxymethylcellulose Sodium (Refresh Tears), 1 DROP OU BID, (Reported) Dexamethasone (Dexamethasone), 4 MG PO ASDIRECTED Flecainide Acetate (Flecainide Acetate), 50 MG PO Q2D, (Reported) Folic Acid (Folic Acid), 1 TAB PO DAILY Furosemide (Furosemide), 20 MG PO 3XW, (Reported) Metoprolol Tartrate (Metoprolol Tartrate), 50 MG PO BID, (Reported) Prochlorperazine (Prochlorperazine Maleate), 5 MG PO TID Rivaroxaban (Xarelto), 20 MG PO DAILY, (Reported) Scheduled PRN Acetaminophen (Tylenol Extra Strength), 1,000 MG PO TID PRN for PAIN, (Reported) Discontinued Medications Ascorbic Acid (Vitamin C), 500 MG PO DAILY, (Reported) Discontinued Reason: Pt states not taking Cholecalciferol (Vitamin D3) (Vitamin D3), 2,000 UNIT PO DAILY, (Reported) Discontinued Reason: Pt states not taking VS, I&O, 24H, Fishbone Vital Signs/I&O Vital Signs Date Time Temp Pulse Resp B/P (MAP) Pulse Ox O2 Delivery O2 Flow Rate FiO2 08/24/19 15:45 68 16 100 Nasal Cannula 3 08/24/19 14:40 97.8 ESPINOZA BARNHART MD Aug 24, 2019 16:02
--- NOTE | 2019-08-24 16:03 | REP ---
IR Ultrasound and fluoroscopy-guided port placement. IR Ultrasound of the neck. IR Moderate sedation. Clinical information: Lung cancer. Right sided mastectomy. Physician: Dr. Arriaga. Procedure: The patient was advised of the benefits, risks, and alternatives of the procedure and informed consent was obtained. A time-out was performed with verification of the patient's name, MRN, site of procedure and type of procedure to be performed. The patient was positioned in the supine position on the angiographic table. The site was prepped and draped in the usual sterile fashion. Moderate sedation was performed by the physician including the presence of an independent trained observer who assisted and monitored the patient's level of consciousness and physiologic status. Following the administration of fentanyl and versed, the physician spent 45 minutes of continuous face to face time with the patient. Ultrasound of the neck reveals a patent and compressible left internal jugular vein. A job service consultant radiograph reveals left lung opacifications. The neck and anterior chest wall were anesthetized with lidocaine. The left internal jugular vein was accessed using a microintroducer needle under ultrasound guidance, via a lateral approach. An 018 wire was advanced into the superior vena cava, the needle was removed and a microsheath was placed. An Amplatz wire was then passed into the inferior vena cava. An incision at the internal jugular vein access site and anterior chest wall were made using a scalpel. An incision was made at the anterior chest wall. A small pocket was created using a combination of blunt and sharp dissection. A tunneling device was then used to pass the catheter from the pocket to the neck puncture site. An 8-[employer] smart power port was then positioned in the pocket. The catheter was then measured and cut. The introducer sheath was exchanged for a peel-away sheath. The catheter was passed through the peel-away sheath into the internal jugular vein and the peel-away sheath was removed. The port tip was positioned at the cavo atrial junction. The port was then accessed with a Arroyo needle. The port flushes and aspirates well. The puncture site in the neck was closed. The chest wall incision was then closed with 2-0 Vicryl and 4-0 Monocryl. Glue and Steri-Strips were applied. A sterile dressing was then applied. The patient tolerated the procedure well and was returned to the PRU in stable condition. Estimated blood loss: <5 ml. Complications: None. Conclusion: 1. Successful placement of an 8-[employer] smart power port via the left internal jugular vein. The port is ready for immediate use. 2. Patient to follow up in IR clinic in 2 weeks. Thank you for this referral. Electronically Signed by Orin Arriaga MD 08/24/2019 04:01 P
[2019-08-24 17:30] VITALS: BP 141/64
== END ==
LOC: M IRPRO 14:24
PROVIDERS: ATTEND Radiology Diagnostic Radiology
DX: C34.90 Malignant neoplasm of unspecified part of unspecified bronchus or lung (principal); Z90.11 Acquired absence of right breast and nipple

== ENCOUNTER → 2019-08-25 | Outpatient (CLI) | payer MEDICARE ==
[~2019-08-25] MED LIST changes: -LIDOCAINE 1% MDV 20ML VIAL As Ordered ONE; -MIDAZOLAM INJ 2 MG/2 ML VIAL (J2250) As Ordered ONE; -ceFAZolin 2 GM/D5W 50 ML IV BAG (J0690 PER 500MG) As Ordered ONE; -diphenhydrAMINE 50MG/ML VIAL (J1200) As Ordered ONE; -fentaNYL 100 MCG/2 ML INJECTION (J3010) As Ordered ONE
--- NOTE | 2019-08-25 15:41 | RADONC ---
This is a telemedicine visit. The patient was informed of the risks including security breech, technological failure, inability to perform a comprehensive physical exam which could delay or prevent an accurate diagnosis, and potential complications from treatment decisions rendered over a telemedicine platform. The patient understands and consented to the use of telehealth services phone only. RADIATION ONCOLOGY CONSULTATION NOTE DATE: 08/25/2019 CHART NUMBER: [id number] DIAGNOSIS: Left lung cancer. STAGE: IV, widely metastatic. ECOG PERFORMANCE STATUS: Not determined. CONSULTATION NOTE: Ms. 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 HISTORY OF PRESENT ILLNESS: The patient reports that she has had increasing shortness of breath as well as an 8-pound weight loss over the past 6 months or so. She was found to have a large mass on CT scan, done 07/15/2019, in the left upper lobe measuring 5.4 cm x 6.2 cm x 5.7 cm. There was a loculated pleural effusion noted. There were multiple bilateral pulmonary parenchymal nodules measuring up to 8 mm in the left upper lung. These were quite worrisome for malignancy. There was ground-glass opacity in the right upper lobe measuring 1.8 cm x 1.3 cm x 2.1 cm and in the superior segment of the right lower lobe measuring 1 cm x 2.3 cm by 2.6 cm. On 07/11/2019, the patient underwent image guided biopsy of her left upper lung mass and pathology revealed a moderately differentiated adenocarcinoma. Subsequent PET scan was done on 07/31/2009 and showed extensive hypermetabolic uptake in the large mass in the left upper lobe. The maximum SUV value was 30.7. There is extensive hypermetabolic pleural uptake throughout much of the left hemithorax consistent with pleural metastatic disease. The uptake was noted to be 9.25. In addition, there was hypermetabolic jorge alberto uptake in the left hilar region as well as the mediastinum. There was hypermetabolic uptake and a small 1 cm nodule in the right upper lobe with an SUV value of 5.97. There was also hypermetabolic uptake beneath the capsule of the liver in the right lobe near the dome of the diaphragm. There were three foci of hypermetabolic uptake in the skeleton including the left humerus as well as the left side of L1 and the transverse process of L3. Thoracentesis was undertaken on 07/08/2019, and it did alleviate some of the patient's discomfort. She is now being referred to us for discussion of possible palliative radiation therapy to her left upper lobe for some left upper lobe chest pain. PAST MEDICAL HISTORY: The patient's past medical history is positive for atrial fibrillation. She has a history of gout. The patient has a history of right-sided breast cancer, which was treated with surgery as well as chemotherapy 25 years ago. In addition, she has hypertension and a history of tuberculosis. The patient has had bilateral cataract surgeries. She has had numerous skin cancers removed on her nose and neck. She had a tonsillectomy as well as the right breast mastectomy noted above. A chest tube was placed on 07/08/2019 as noted above as well. ALLERGIES: The patient reports being allergic to CALCIUM. She reports crippling pain with calcium. SOCIAL HISTORY: The patient's social history is positive for a long history of cigarette smoking, which she quit 12 years ago. She drinks alcohol socially. FAMILY HISTORY: The patient's family history is positive for a mother with DE[employer]PA[employer]IC cancer, a brother with breast cancer, a maternal uncle with colon cancer, a niece with breast cancer, a nephew with thyroid cancer, and a paternal grandfather with some type of unknown cancer. Her father also had some type of unknown cancer. REVIEW OF SYSTEMS: The patient's review of systems is positive for some left upper chest pain, which she reports is helped quite a bit with the occasional Tylenol. It is otherwise positive for some weight loss and some shortness of breath, but is otherwise noncontributory. Denies nausea, vomiting, fevers, chills, night sweats, diplopia, headaches, anxiety or depression, anorexia, visual disturbances, urinary or bowel difficulties, bone pain, or neurological problems. PHYSICAL EXAMINATION: Physical examination was deferred as this was a telephone consult in order to follow COVID-19 precautions. ASSESSMENT: I had a very lengthy discussion with this patient lasting approximately 30 minutes. We discussed the potential benefits as well as possible acute and chronic sequelae of external beam radiation therapy. We discussed logistics of treatment planning, simulation and subsequent fractionated daily radiation treatments. I am in agreement with doctor Marino Coughlin MD that she may benefit from palliative radiation therapy to the left upper chest region. Indeed it is a big mass and is bordering the chest wall, which may be causing some of her discomfort. Unfortunately, the patient reports she lives near [place] in the [facility] and that it is more than an hour drive in each direction. I told her we can expedite the treatments and hypofractionated delivering palliative radiation therapy, perhaps just 10 fractions over a 2 week period 5 days week. The patient reports that she does not think she can come in on a daily basis and may withhold radiation. I gave the patient my cell phone number as well work number and asked her to please feel to call me if I can answer any questions or be of any assistance. I have made it clear to her that we are a quality of life treatment and we could treat most of the areas of her body for palliation of pain. This treatment will not extend her life but is purely for palliation, and therefore, she cannot make a wrong decision. We did spend an extensive amount of that time discussing hospice as well. They would provide her with comfort of being home clearly and do the best to control her pain. In addition, we discussed possible palliative chemotherapy which is being offered by Dr. Coughlin. The patient may accept this. She reports that she may be able to come for chemo, which is not an every day trip. Indeed, if the disease does respond to chemotherapy, the disease in the left upper lung also will be responding to chemotherapy and may give her some palliative benefit. I did make clear to her that I believe radiation would work to achieve palliation much quicker than chemotherapy. Once again, in summary, the patient has got three possible choices, one would be palliative care or hospice at home, the other would be palliative radiation therapy which would require daily treatments to the center, and the third would be palliative chemotherapy. We did discuss the COVID-19 issue and the fact that she would be possibly exposed having to come down here on a daily basis. Overall considering her advanced age and the extreme extent of this disease, she cannot make an incorrect choice. Thank you for allowing us to participate in the care of this very pleasant woman. I will keep you informed as any new developments as they occur. cc: MD Flaco Masters MD MTDD
== END ==
LOC: M ONCR 12:59
PROVIDERS: ATTEND Radiology Radiation Oncology
DX: C34.90 Malignant neoplasm of unspecified part of unspecified bronchus or lung (principal)

== ENCOUNTER → 2019-09-13 | Outpatient (POV) | payer MEDICARE ==
[~2019-09-13] MED LIST changes: +K-TA10TA2 PO
--- NOTE | 2019-09-14 14:27 | IRPN ---
[facility] IR Progress Note IR Progress Note DATE: Sep 13, 2019 Teleconsult FOLLOW-UP: Status post port placement. Patient states it is doing well. Port has been used without issues. No pain, fever, or discharge at site. Patient states she has had a body rash for a few days and thinks a new laxative she just started maybe the reason. Denies lip or throat swelling. Denies skin wheals. ON EXAMINATION: video conference not available on patient side. IMPRESSION: Doing well status post port placement. No further follow up scheduled unless initiated by patient and/or referring provider. Patient advised to hold laxative and contact PCP if rash persists or any other concerning symptoms develop. Thank you for this referral Allergies Coded Allergies: calcium (Verified Allergy, Unknown, 07/27/19) pt states crippthomas pt ESPINOZA BARNHART MD Sep 14, 2019 14:27
== END ==
LOC: M TMIRPOV 12:50
PROVIDERS: ATTEND Radiology Diagnostic Radiology
DX: Z45.2 Encounter for adjustment and management of vascular access device (principal)

== ENCOUNTER 2019-09-28 17:23 | Inpatient (IN) | payer MEDICARE ==
[~2019-09-28] VITALS: Ht 162.6 cm; Wt 55.1 kg
[2019-09-28] MEDS ORDERED: VITA-158 PO (21:50)
[2019-09-28] MEDS ORDERED: VITAD1000T PO (21:50)
[2019-09-28 22:00] VITALS: BP 110/49
[2019-09-28 22:21] LABS: HEMATOCRIT 22.4 % (36.0-47.0); HEMOGLOBIN 7.1 g/dl (12.0-15.5); MEAN CORPUSCULAR HEMOGLOBIN 29.8 pg (27.0-33.0); MEAN CORPUSCULAR HGB CONC 31.7 g/dl (32.0-36.5); MEAN CORPUSCULAR VOLUME 94.1 fl (80.0-96.0); PLATELET COUNT, AUTOMATED 146 10^3/uL (150-450); RED BLOOD COUNT 2.38 10^6/uL (4.00-5.40); WHITE BLOOD COUNT 3.1 10^3/uL (4.0-10.0)
[2019-09-28] MEDS: NS 1,000 ML IV SCH (22:23)
[2019-09-28 22:46] LABS: BILIRUBIN,TOTAL 0.5 MG/DL (0.2-1.0); CALCIUM LEVEL 7.6 MG/DL (8.8-10.2); CREATININE FOR GFR 1.82 MG/DL (0.55-1.30); GLOMERULAR FILTRATION RATE 28.1 (>32); POTASSIUM SERUM 3.4 MEQ/L (3.5-5.1)
[2019-09-28] MEDS ORDERED: PIPERACILLIN/TAZOBACTAM SOD 3.375 GM in D5W MINI-BAG PLUS 50 ML IV SCH (23:00)
[2019-09-29] VITALS (15 sets, daily range): BP systolic 83–110; BP diastolic 43–60
[2019-09-29] MEDS ORDERED: LIDOCAINE VISCOUS 2% SOLN 15ML UDC SS PRN (00:15)
[2019-09-29] MEDS ORDERED: CHLORASEPTIC SPRAY MT PRN (00:15)
[2019-09-29] MEDS ORDERED: RIVAROXABAN 20 MG TAB (XARELTO) PO SCH (00:15)
[2019-09-29] MEDS: FLECAINIDE 50MG TABLET PO SCH ×3 (00:15→20:12)
[2019-09-29] MEDS ORDERED: METOPROLOL TART 50 MG TAB PO SCH (00:15)
[2019-09-29] MEDS ORDERED: POTASSIUM CHLORIDE 10 MEQ SR TABLET PO ONE (00:30)
[2019-09-29] MEDS: PROCHLORPERAZINE 5 MG TAB (S0183) PO SCH ×4 (00:50→20:12)
--- NOTE | 2019-09-29 02:17 | HPEPDOC ---
[facility] Medical History & Physical Date of Admission September 28, 2019 Date of Service: September 28, 2019 Attending Physician: CLARISA FINCH MD History and Physical CHIEF COMPLAINT: Persistent diarrhea HISTORY OF PRESENT ILLNESS: 84-year-old W with a recent diagnosis of DIONNA stage 4 adenocarcinoma recently started on prembro/carboplatin/premetrexed, as well as pertinent medical history of right sided breast cancer that was diagnosed in 1994, s/p right-sided mastectomy + chemotherapy, chronic Afib, HTN, and gout who presented to [facility] as a transfer from [facility] where she presented with persistent non bloody diarrhea of 2-3 weeks, nausea, some none bloody emesis, poor PO, sore aleksandr th and changes in taste. At [facility] she was found to be anemic to Hgb 6.9, with a leukopenia to 2.8 and requested transfer to [facility] for possible chemo induced colitis. At [facility], she arrived hemodynamically stable, afebrile, and did not report any abdominal pain, chest pain, shortness of breath, reporting a recent emesis episode when she attempted to take her PM meds that was nonbloody and the last diarrhea episode on 09/26 night with none on the day of admission. She follows with Dr. Coughlin in onc and received her treatment on 09/21/2019. The extent of her disease per oncology's last note included the mediastinum, pleura and bone with no evidence of brain mets per 07/2019 imaging. She lives alone at home and has a son who lives close by. Initial workup was notable for WBC 3.1, hgb 7.1, plate lets 146, Na 142, K 3.4, BUN 48, Cr 1.82, lactate 1.8. I gave her empiric zosyn, ordered a GI panel and inflammatory markers and ordered her for an AM CT A/P for investigation of her colitis and possible slow GIB. Past medical history: Recent diagnosis of DIONNA stage 4 adenocarcinoma recently started on prembro/carboplatin/premetrexed, as well as pertinent medical history of right sided breast cancer that was diagnosed in 1994, s/p right-sided mastectomy + chemotherapy, chronic Afib, HTN, gout and a history of basal cell carcinoma of the nose status post excision Past surgical history: -Tonsillectomy -Bilateral cataract surgery -Right-sided Mastectomy with removal of 27 lymph nodes Family History: Most of her father's side of the family had various cancers Social History: Former smoker (quit 40 years ago with a greater than [id number] smoking history). Will occasionally have a glass of beer or wine. Lives alone at home. Review of Systems Constitutional: Denies fevers, chills, or night sweats. Endorses continued weight loss over the last 4-5 months now Eyes: Denies double vision, blurry vision. No eye pain or tearing Ear nose throat: Endorsing sore throat for the past 3-4 days with some odynophagia. No bleeding or ulcers. Denies runny nose, epistaxis, sinus pain, tinnitus. Cardiovascular: Denies chest pain, PND, orthopnea or palpitations. Reports that she has some chronic bilateral LE edema that is at baseline currently. Respiratory: Denies SOB, cough, sputum production, wheezing or hemoptysis. Gastrointestinal: Has ongoing daily diarrhea that is sometimes up to 5-6 times per day. Currently none for the last 24h. Is having some nausea and emesis with taking meds mostly. Denies abdominal pain, ethel hematemesis, hematochezia, melena, or tenesmus. Musculoskeletal: Denies joint swelling, decreased range of motion, crepitus Integumentary: Denies pruritus, rashes, or lesions Neuro: Reports changes to taste in the last few weeks. No seizures, syncope, headaches, paresthesias. Psychiatric: Denies recent history of depression, anxiety. Endocrine: No tremor, palpitations, constipation, dry skin, polydipsia, polyuria, polyphagia Hematologic: Has known anemia, without recent purpura or petechiae Physical Examination General: Elderly, pleasant, in no acute distress HEENT: NCAT, edentulous, MMM, no noted ethel thrush, lesions or bleeding, clear posterior oropharynx Neck: supple, no JVD Lungs: Diminished left lung , clear right, no wheezing, rales or rhonchi. Heart: Irregularly irregular, no murmurs, rubs or gallops Abdomen: Normoactive bowel sounds. Soft. Nontender to palpation and nondistended. Extremities: Bilateral nonpitting edema, 2+ DP pulses bilaterally, WWP Skin: No rashes or lesions are noted Psych: Mood and affect are appropriate, AOx3 Neuro: Cranial nerves II through XII grossly intact. Sensation is intact throughout. Muscle strength is 5 out of 5 in all 4 extremities. Assessment: 84-year-old W with a recent diagnosis of DIONNA stage 4 adenocarcinoma recently started on prembro/carboplatin/premetrexed who presented to [facility] as a transfer from [facility] where she presented with persistent non bloody diarrhea of 2-3 weeks, nausea, some nonbloody emesis, poor PO, sore mouth and changes in taste and found to be anemic, leukopenic and requested transfer to [facility] for possible chemo induced colitis. Plan: 1. Diarrhea. 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 Will also consider diverticulosis given anemia, elevated BUN, will obtain CT A/P in the morning to investigate extent of inflammation -f/u GI panel -f/u ESR, CRP and fecal calprotectin -gave empiric zosyn, to likely dc in the AM given nonfocal examination and likely chemo-induced given history of symptoms starting dar-chemo 2. SEAN: likely prerenal in the settinf N/V/D and poor PO -NS @ 125cc/hr -giving 2u pRBCs 3. Anemia: Acute on chronic: possibly GIB vs. chemo induced marrow suppressive effects on chornic malignancy related anemia - giving 2u pRBCs -AM CBC -FOBT -CT A/P in the morning -will give daily PPI as she takes steroids dar-chemo 4. Stage 4 lung adenoCA: -Day team to [facility] vs. consult Dr. Coughlin depending on extent of diarrhea (she has had none since 5.12 night) as this may affect decision to trial steroid treatment for immune mediated colitis/diarrhea vs. considering holding of pembro. 5. Hypertension. -Continue home amlodipine and metop with hold parameters -Hold lasix 6. Chronic atrial fibrillation: Rate controlled -Continue home flecainide, metoprolol and Xarelto 7. Gout -Continue home allopurinol 8. DVT prophylaxis. Teds and sequentials with Xarelto Disposition: Inpatient, as we expect greater than 2 midnights Vital Signs Vital Signs Date Time Temp Pulse Resp B/P (MAP) Pulse Ox O2 Delivery O2 Flow Rate FiO2 09/28/19 22:00 97.6 79 18 110/49 (69) 99 Room Air Laboratory Data Labs 24H Laboratory Tests 2 09/28/19 22:04: Nucleated Red Blood Cells % (auto) 0.0, Anion Gap 11, Glomerular Filtration Rate 28.1L, Lactic Acid Level 1.8, Calcium Level 7.6L, Total Bilirubin 0.5, Aspartate Amino Transf (AST/SGOT) 30, Alanine Aminotransferase (ALT/SGPT) 24, Alkaline Phosphatase 61, Total Protein 5.0L, Albumin 2.0L, Albumin/Globulin Ratio 0.67L CBC/BMP Laboratory Tests 09/28/19 22:04 Microbiology Microbiology 09/28/19 Blood Culture, Received Pending 09/28/19 Blood Culture, Received Pending Home Medications Scheduled Allopurinol (Allopurinol) 100 Mg Tablet, 100 MG PO BID Amlodipine Besylate (Amlodipine Besylate) 10 Mg Tablet, 10 MG PO DAILY Ascorbic Acid (Vitamin C) 500 Mg Tablet, 500 MG PO DAILY Benazepril HCl (Benazepril HCl) 40 Mg Tablet, 40 MG PO DAILY Carboxymethylcellulose Sodium (Refresh Tears) 15 Ml Drops, 1 DROP OU BID Cholecalciferol (Vitamin D3) (Vitamin D3) 1,000 Unit Tablet, 1,000 UNITS PO DAILY Dexamethasone (Dexamethasone) 4 Mg Tablet, 4 MG PO ASDIRECTED take 2 tabs by mouth daily the day before chemo, the day of chemo, and the day after chemo Flecainide Acetate (Flecainide Acetate) 50 Mg Tablet, 50 MG PO BID Folic Acid (Folic Acid) 1 Mg Tablet, 1 TAB PO DAILY Furosemide (Furosemide) 20 Mg Tablet, 40 MG PO DAILY Metoprolol Tartrate (Metoprolol Tartrate) 100 Mg Tablet, 50 MG PO BID Prochlorperazine (Prochlorperazine Maleate) 5 Mg Tablet, 5 MG PO TID for Nausea Rivaroxaban (Xarelto) 20 Mg Tablet, 20 MG PO QPM Scheduled PRN Acetaminophen (Tylenol Extra Strength) 500 Mg Tablet, 1,000 MG PO TID PRN for PAIN Allergies Coded Allergies: calcium (Verified Allergy, Unknown, 07/27/19) pt states cripples pt A-FIB/CHADSVASC A-FIB History Current/History of A-Fib/PAF?: Yes Current PO Anticoag Therapy: Yes CLARISA FINCH MD September 29, 2019 02:16
[2019-09-29] MEDS: NS 1,000 ML IV SCH (05:24)
[2019-09-29] MEDS ORDERED: BENAZEPRIL 20 MG TAB PO SCH (09:00)
[2019-09-29] MEDS ORDERED: PANTOPRAZOLE 40MG TAB (PROTONIX) PO SCH (09:00)
[2019-09-29] MEDS ORDERED: allopurinoL 100 MG TAB PO SCH (09:00)
[2019-09-29] MEDS ORDERED: amLODIPine 10 MG TAB PO SCH (09:00)
[2019-09-29 10:08] LABS: HEMATOCRIT 28.3 % (36.0-47.0); MEAN CORPUSCULAR HGB CONC 33.2 g/dl (32.0-36.5); MEAN CORPUSCULAR VOLUME 90.4 fl (80.0-96.0); PLATELET COUNT, AUTOMATED 107 10^3/uL (150-450); RED BLOOD COUNT 3.13 10^6/uL (4.00-5.40); WHITE BLOOD COUNT 2.5 10^3/uL (4.0-10.0)
[2019-09-29 10:14] LABS: HEMOGLOBIN 9.4 g/dl (12.0-15.5)
[2019-09-29] MEDS ORDERED: methylPREDNISolone 1,000 MG, VIAL MATE ADAPTER 1 EACH in D5W 250 ML IV ONE (10:15)
[2019-09-29] MEDS: FOLIC ACID 1 MG TAB PO SCH (10:26)
[2019-09-29] MEDS: VITAMIN D 1,000 INTERNATIONAL UNITS TABLET PO SCH (10:26)
[2019-09-29] MEDS: ASCORBIC ACID 500 MG TAB PO SCH (10:27)
[2019-09-29] MEDS: PANTOPRAZOLE 40MG VIAL (C9113 PER 1) IV SCH ×2 (10:28→20:12)
[2019-09-29 10:39] LABS: ALBUMIN 1.8 GM/DL (3.2-5.2); BILIRUBIN,TOTAL 1.3 MG/DL (0.2-1.0); C REACTIVE PROTEIN QUANTITATIV 12.5 MG/DL (0.00-0.30); CALCIUM LEVEL 7.9 MG/DL (8.8-10.2); CREATININE FOR GFR 1.77 MG/DL (0.55-1.30); TOTAL PROTEIN 5.1 GM/DL (6.4-8.2)
[2019-09-29 10:39] LABS: ERYTHROCYTE SEDIMENTATION RATE 65 mm/hr (0-30)
[2019-09-29 10:55] LABS: ANISOCYTOSIS 1+; LYMPHOCYTES 15 % (16-44); NEUTROPHILS 85 % (28-66); PLATELET ESTIMATE DECREASED (NORMAL)
--- NOTE | 2019-09-29 11:48 | CR.PDOC ---
General Date of Consultation: September 29, 2019 Referring Provider: CLARISA FINCH MD Attending Physician: DEVAUGHN RAYA MD Consultation REASON FOR CONSULTATION/CHIEF COMPLAINT: Help with management for stage IV metastatic adenocarcinoma with suspected immune mediated colitis HISTORY OF PRESENT ILLNESS This pleasant 84-year-old female initially presented to the hospital after a 2 month history of dry cough for 3-4 weeks shortness of breath. Patient underwent imaging studies that revealed a loculated left pleural effusion. This was tapped and found to be malignant with adenocarcinoma. Patient had a chest tube and pleurodesis while in the hospital last month. 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 Mutation analysis negative, PDL1 0% Patient has embarked on palliative chemotherapy and immunotherapy with pembrolizumab/carboplatinum/pemetrexed. Patient received cycle #2 on September 20. Patient is day +9 cycle #2 Patient reports active dehydration and significant grade 2 diarrhea. Patient was admitted for further workup and management Patient was an hour away from cancer Center Patient has cancer related pain left upper back which was amenable for palliative radiation therapy but patient declined due to travel time Patient lives alone but have support of her children. Before admission, the patient's performance status is a 1. Patient is driving and doing all her activity of daily living. Patient understands that that goal of treatment is to maintain quality life and to improve her pain for as long as possible Patient reports that she didn't feel well for several days before reluctantly coming into the hospital for evaluation. Patient was found by her daughter and daughter insisted that patient be evaluated. Patient's daughter is Yasmine her phone [phone]. Patient found to have melena as well as coffee-ground antonio sis. Patient has nausea and emesis this morning. Patient's hemoglobin has been dropping and has required red blood cell transfusions. Patient has had grade 2 diarrhea. Patient had an episode this morning which was all liquid. It was not tested for C. difficile. Given the fact the patient had 2 doses of pembrolizumab, it would not be inappropriate to treat empirically for immune mediated colitis with steroids. However his implant to rule out infectious cause. DIAGNOSTIC IMAGING AND PATHOLOGY Brain MRI performed 08/05/2019 shows no evidence of metastatic disease PET/CT scan performed 08/01/2019 revealed Large left upper lobe mass with extensive hypermetabolic pleural uptake throughout much the left hemithorax consistent with pleural based disease. Left hilar metabolic and uptake also n oted and left central mediastinal uptake consistent with lymph node metastasis. Metabolic focus noted beneath the liver and 3 foci of hypermetabolic uptake in the skeleton one in the mid left humerus left side of the L1 vertebral body and right transverse process and lamina on L3 07/11/19 CT guided DIONNA lung bx- Moderately differentiated adenocarcinoma. Comprehensive testing for relevant mutations were negative 07/07/19 CT chest - DIONNA large mass 5.4 x 26.2 x 5.7 cm moderate loculated left pleural effusion, B/L lung nodule 8 mm DIONNA. Ground glass opacity RUL 1.8 x 1.3 x 2.1 cm, RLL 1 x 2.3 x 2.6 cm. Tree-in-bud opacities peripheral RUL, RML, RLL. 07/08/19 Left diagnostic and therapeutic thoracentesis - bloody, + for malignancy. MEDICATIONS: Reviewed in EMR and reconciled. CODE STATUS DNR/DNI. MOLST form filled out 08/31/2019 ALLERGIES: Please see below. HOME MEDICATIONS: Please see below. PAST MEDICAL HISTORY: Gout. Hypertension. Atrial fibrillation - on Xarelto - s/p ablation versus cardioversion - patient unclear. Numerous skin cancers removed on nose and neck - patient unclear with details. Mid 1990s - right breast cancer, s/p mastectomy, CMF chemotherapy 6 and tamoxifen x 5 years. Tonsillectomy. B/L cataract surgery. Positive history of TB when in school, has been tested since and been negative per history. PAST SURGICAL HISTORY: Tonsillectomy Right breast mastectomy FAMILY HISTORY: Mother "female cancer" - details unclear to patient. Father "cancer" - details unclear to patient. Paternal grandfather "cancer" - details unclear to patient. Maternal uncle colon cancer in his 50s. Brother breast cancer in his 60s. Niece breast cancer in her 20s, brain cancer - unclear if mets versus another primary. Nephew thyroid cancer, brain cancer. One son, one daughter both alive and well. SOCIAL HISTORY: Alcohol - Admits to social use. Denies any history of heavy use. Drug use - Denies any recreational drug use. Smoking - Half a pack a day, quit around 2007 MOLST form completed-DNR/DNI REVIEW OF SYSTEMS: 15 point review of systems is positive for severe fatigue, dry mouth, sore throat, emesis and diarrhea. PHYSICAL EXAMINATION: VITAL SIGNS: See below GENERAL: Alert, comfortable, in no acute distress asleep in bed but easily aroused HEENT: Normocephalic, atraumatic, sclerae anicteric, moist mucous membranes NECK: Supple, no lymphadenopathy, no JVD CARDIOVASCULAR: irregular rhythm, regular rate, normal S1 and S2. No murmurs, rubs, or gallops BREAST EXAM: STATUS post right breast mastectomy, left breast no palpable masses identified RESPIRATORY: Clear to auscultation bilaterally with equal air entry bilaterally. No wheezing, rhonchi, or rales. ABDOMEN: Soft, minimal tenderness on palpation, nondistended, bowel sounds present EXTREMITIES: No cyanosis or edema. Pulses 2+/4 in bilateral upper and lower extremities SKIN: No rash. NEUROLOGIC: Alert and oriented 3 to person, place and time. No focal deficits appreciated PSYCHIATRIC: Mood and affect appropriate LABORATORY DATA: Please see below. ASSESSMENT: Stage IV metastatic adenocarcinoma of the left upper lung with left hilar, mediastinal, left humerus, L1 and L3 bone disease, liver and pleural-based disease. Mutation analysis negative, PDL1 0% + status post cycle #2 palliative chemotherapy with pembrolizumab/carboplatinum/pemetrexed. Patient presented with acute GI bleed with coffee-ground emesis, melena, dehydration, prerenal azotemia with worsening chronic kidney insufficiency and grade 2 diarrhea. She also had episode of hypotension particularly related to acute GI bleed RECOMMENDATIONS: Recommend checking for C. difficile colitis Recommend consideration Solu-Medrol 1 g IV today followed by 1 mg/kg of prednisone equal to 60 mg daily. Diarrhea could be exacerbated by GI bleed. That being said, there is a high probability we are dealing with some form of immune mediated colitis. Recommend consult gastroenterology for endoscopy and to help with management Hold anticoagulation Continue folic acid as this is an essential medication for patient because of pemetrexed administration Patient will be on a treatment break to allow for recovery Likely to avoid immunotherapy next cycle Patient has been responding to therapy quite nicely up until this point Case discussed with resident, Dr. Shanks and daughter Total time on care 70 minutes more than 50% of the time was counseling and coordination care discussion with disorder and attending team Thank you kindly for consult Expected remission more than 3 nights likely discharge early next week pending clinical course Vital Signs/I&O Vital Signs Date Time Temp Pulse Resp B/P (MAP) Pulse Ox O2 Delivery O2 Flow Rate FiO2 09/29/19 09:00 97.0 85 20 100/60 Room Air 09/29/19 07:55 96 I&O- Last 24 Hours up to 6 AM 09/29/19 06:00 Intake Total 500 ml Output Total 375 ml Balance 125 ml Laboratory Data Labs 24H Laboratory Tests 2 09/28/19 22:04: Nucleated Red Blood Cells % (auto) 0.0, Anion Gap 11, Glomerular Filtration Rate 28.1L, Lactic Acid Level 1.8, Calcium Level 7.6L, Total Bilirubin 0.5, Aspartate Amino Transf (AST/SGOT) 30, Alanine Aminotransferase (ALT/SGPT) 24, Alkaline Phosphatase 61, Total Protein 5.0L, Albumin 2.0L, Albumin/Globulin Ratio 0.67L 09/29/19 06:02: Urine Color YELLOW, Urine Appearance CLOUDYH, Urine pH 5.0, Urine Specific [place] 1.016, Urine Protein 1+H, Urine Glucose (UA) 1+H, Urine Ketones TRACEH, Urine Blood 1+H, Urine Nitrite NEGATIVE, Urine Bilirubin NEGATIVE, Urine Urobilinogen 0.2, Urine Leukocyte Esterase 1+H, Urine WBC (Auto) 30H, Urine RBC (Auto) 4H, Urine Hyaline Casts (Auto) 0, Urine Bacteria (Auto) 2+H, Urine Squamous Epithelial Cells 2, Urine Amorphous Sediment SMALLH, Urine Sperm (Auto) 09/29/19 09:42: Nucleated Red Blood Cells % (auto) 0.0, Neutrophils (%) (Auto) , Neutrophils 85H, Lymphocytes (Manual) 15L, Anisocytosis 1+, Platelet Estimate DECREASED, Erythrocyte Sedimentation Rate 65H 09/29/19 09:43: Anion Gap 6L, Glomerular Filtration Rate 29.0L, Calcium Level 7.9L, Total Bilirubin 1.3#H, Aspartate Amino Transf (AST/SGOT) 28, Alanine Aminotransferase (ALT/SGPT) 24, Alkaline Phosphatase 58, Total Protein 5.1L, Albumin 1.8L, Album in/Globulin Ratio 0.5L, C-Reactive Protein, Quantitative 12.50H, Lipase 161 CBC/BMP Laboratory Tests 09/28/19 22:04 09/29/19 09:42 09/29/19 09:43 Microbiology Microbiology 09/29/19 Urine Culture, Received Pending 09/28/19 Blood Culture, Received Pending 09/28/19 Blood Culture, Received Pending Allergies Coded Allergies: calcium (Verified Allergy, Unknown, 07/27/19) pt states cripples pt Home Medications Scheduled Allopurinol (Allopurinol) 100 Mg Tablet, 100 MG PO BID, (Reported) Amlodipine Besylate (Amlodipine Besylate) 10 Mg Tablet, 10 MG PO DAILY, (Reported) Ascorbic Acid (Vitamin C) 500 Mg Tablet, 500 MG PO DAILY, (Reported) Benazepril HCl (Benazepril HCl) 40 Mg Tablet, 40 MG PO DAILY, (Reported) Carboxymethylcellulose Sodium (Refresh Tears) 15 Ml Drops, 1 DROP OU BID, (Reported) Cholecalciferol (Vitamin D3) (Vitamin D3) 1,000 Unit Tablet, 1,000 UNITS PO DAILY, (Reported) Dexamethasone (Dexamethasone) 4 Mg Tablet, 4 MG PO ASDIRECTED, #30 take 2 tabs by mouth daily the day before chemo, the day of chemo, and the day after chemo Flecainide Acetate (Flecainide Acetate) 50 Mg Tablet, 50 MG PO BID, (Reported) Folic Acid (Folic Acid) 1 Mg Tablet, 1 TAB PO DAILY for 90 Days, #90 Furosemide (Furosemide) 20 Mg Tablet, 40 MG PO DAILY, (Reported) Metoprolol Tartrate (Metoprolol Tartrate) 100 Mg Tablet, 50 MG PO BID, (Reported) Prochlorperazine (Prochlorperazine Maleate) 5 Mg Tablet, 5 MG PO TID for Nausea for 30 Days, #60 Rivaroxaban (Xarelto) 20 Mg Tablet, 20 MG PO QPM, (Reported) Scheduled PRN Acetaminophen (Tylenol Extra Strength) 500 Mg Tablet, 1,000 MG PO TID PRN for PAIN, (Reported) DEVAUGHN RAYA MD September 29, 2019 11:48
[2019-09-29 13:00] LABS: BASO % 0.7 % (0.0-1.0); EOS % 0.3 % (0.0-3.0); LYMPH # 0.4 10^3/uL (1.5-5.0); LYMPH % 12.7 % (24.0-44.0); NEUTROPHILS # 2.4 10^3/uL (1.5-8.5); NEUTROPHILS % 79.4 % (36.0-66.0)
--- NOTE | 2019-09-29 15:41 | IPNPDOC ---
Text Note Date of Service The patient was seen on 09/29/19. NOTE SUBJECTIVE: Concepcion Nayak was seen and examined this morning lying comfortably in bed. She denies any episodes of diarrhea this morning. She states she does not currently feel nauseous, but notes that she has been having a hard time eating at home. She did have coffee-ground emesis this morning as well. No fevers/chills. OBJECTIVE: VITAL SIGNS: See below GENERAL: Alert, comfortable, in no acute distress HEENT: Normocephalic, atraumatic, sclerae anicteric, moist mucous membranes NECK: Supple, no lymphadenopathy, no JVD CARDIOVASCULAR: irregular rhythm, regular rate, normal S1 and S2. No murmurs, rubs, or gallops RESPIRATORY: Clear to auscultation bilaterally with equal air entry bilaterally. No wheezing, rhonchi, or rales. ABDOMEN: Soft, nontender, nondistended, bowel sounds present EXTREMITIES: No cyanosis or edema. Pulses 2+/4 in bilateral upper and lower extremities SKIN: No rash. NEUROLOGIC: Alert and oriented 3 to person, place and time. No focal deficits appreciated PSYCHIATRIC: Mood and affect appropriate ASSESSMENT: 84-year-old female with a recent diagnosis of DIONNA stage 4 adenocarcinoma recently started on prembro/carboplatin/premetrexed who presented to [facility] as a transfer from [facility] with persistent non bloody diarrhea of 2- 3 weeks, nausea, some nonbloody emesis, poor PO intake, found to be anemic, leukopenic and requested transfer to [facility] for possible chemo induced colitis. PLAN: # Diarrhea - suspect chemo induced immune-mediated colitis - oncology consulted, recommend 1000mg IV solumedrol today followed by 60mg prednisone daily - infectious less likely with 3 week time course, GI panel pending - advance diet as tolerate today and monitor # SEAN - suspect prerenal in the setting of N/V/D and poor PO intake - s/p IV fluids. Monitor BMP daily. - hold home nephrotoxic medications # Anemia: Acute on chronic: possibly GIB vs. chemo induced marrow suppressive effects on chronic malignancy related anemia - s/p 2u pRBCs, H/H improved. Monitor CBC daily and transfuse as needed - hematemesis this morning raises concern for GIB, stool occult pending - IV protonix BID # Neutropenia - likely related to CA. - absolute neutrophil count = 2644 - blood cultures x2 and urine culture pending. # Stage 4 lung adenoCA -Oncologist Dr. Coughlin consulted, appreciate his input and recommendations. # Hypertension. -hold home medications as she has had low-normal blood pressures # Chronic atrial fibrillation, rate controlled -Continue home flecainide, metoprolol - hold home Xarelto in the setting of GI bleed # Gout -hold home allopurinol in the setting of SEAN DVT prophylaxis: Teds and sequentials GI prophylaxis: IV PPI BID Disposition: pending clinical improvement Attending attestation: I evaluated and examined the patient in person; I discussed the care with Resident in detail and agree with the plan above. VS,Fishbone, I+O VS, Fishbone, I+O Laboratory Tests 09/28/19 22:04 09/29/19 09:42 09/29/19 09:43 Vital Signs Date Time Temp Pulse Resp B/P (MAP) Pulse Ox O2 Delivery O2 Flow Rate FiO2 09/29/19 09:00 97.0 85 20 100/60 Room Air 09/29/19 07:55 96 I&O- Last 24 Hours up to 6 AM 09/29/19 06:00 Intake Total 500 ml Output Total 375 ml Balance 125 ml ISSAC MARTELL D.O. September 29, 2019 15:41 CHRISTEL LUND MD October 02, 2019 19:42
[2019-09-30 04:33] VITALS: BP 136/59
[2019-09-30 05:55] LABS: HEMATOCRIT 28.2 % (36.0-47.0); HEMOGLOBIN 9.6 g/dl (12.0-15.5); MEAN CORPUSCULAR HEMOGLOBIN 30.4 pg (27.0-33.0); MEAN CORPUSCULAR VOLUME 89.2 fl (80.0-96.0); RED BLOOD COUNT 3.16 10^6/uL (4.00-5.40); WHITE BLOOD COUNT 2.2 10^3/uL (4.0-10.0)
[2019-09-30 06:17] LABS: ALBUMIN 1.9 GM/DL (3.2-5.2); BILIRUBIN,TOTAL 0.7 MG/DL (0.2-1.0); CALCIUM LEVEL 7.7 MG/DL (8.8-10.2); CREATININE FOR GFR 1.7 MG/DL (0.55-1.30); GLOMERULAR FILTRATION RATE 30.4 (>32); POTASSIUM SERUM 3.9 MEQ/L (3.5-5.1); TOTAL PROTEIN 4.9 GM/DL (6.4-8.2)
[2019-09-30 06:27] LABS: PLATELET COUNT, AUTOMATED 85 10^3/uL (150-450)
[2019-09-30 08:53] LABS: ANISOCYTOSIS 1+; EOSINOPHILS 1 % (0-3); LYMPHOCYTES 7 % (16-44); NEUTROPHILS 91 % (28-66); PLATELET ESTIMATE DECREASED (NORMAL)
[2019-09-30] MEDS ORDERED: predniSONE 20 MG TAB PO SCH (09:00)
[2019-09-30] MEDS: PANTOPRAZOLE 40MG VIAL (C9113 PER 1) IV SCH ×2 (09:01→20:38)
[2019-09-30] MEDS: ASCORBIC ACID 500 MG TAB PO SCH (09:02)
[2019-09-30] MEDS: VITAMIN D 1,000 INTERNATIONAL UNITS TABLET PO SCH (09:02)
[2019-09-30] MEDS: PROCHLORPERAZINE 5 MG TAB (S0183) PO SCH ×3 (09:02→20:38)
[2019-09-30] MEDS: FOLIC ACID 1 MG TAB PO SCH (09:02)
[2019-09-30] MEDS: FLECAINIDE 50MG TABLET PO SCH ×2 (09:02→20:38)
--- NOTE | 2019-09-30 10:31 | IPNPDOC ---
Text Note Date of Service The patient was seen on 09/30/19. NOTE SUBJECTIVE: Concepcion Nayak was seen and examined this morning lying comfortably in bed. No nausea, vomiting, abdominal pain, or diarrhea. No fevers/chills. She state she was able to eat some broth and fruit for dinner last night and for breakfast this morning. She states this is more than she was able to eat at home. OBJECTIVE: VITAL SIGNS: See below GENERAL: Alert, comfortable, in no acute distress HEENT: Normocephalic, atraumatic, sclerae anicteric, moist mucous membranes NECK: Supple, no lymphadenopathy, no JVD CARDIOVASCULAR: irregular rhythm, regular rate, normal S1 and S2. No murmurs, rubs, or gallops RESPIRATORY: Clear to auscultation bilaterally with equal air entry bilaterally. No wheezing, rhonchi, or rales. ABDOMEN: Soft, nontender, nondistended, bowel sounds present EXTREMITIES: No cyanosis or edema. Pulses 2+/4 in bilateral upper and lower extremities SKIN: No rash. NEUROLOGIC: Alert and oriented 3 to person, place and time. No focal deficits appreciated PSYCHIATRIC: Mood and affect appropriate ASSESSMENT: 84-year-old female with a recent diagnosis of DIONNA stage 4 adenocarcinoma recently started on prembro/carboplatin/premetrexed who presented to [facility] as a transfer from [facility] with persistent non bloody diarrhea of 2- 3 weeks, nausea, some nonbloody emesis, poor PO intake, found to be anemic, leukopenic and requested transfer to [facility] for possible chemo induced colitis. PLAN: # Diarrhea, resolved - suspect chemo induced immune-mediated colitis - oncology consulted, recommended 1000mg IV solumedrol once followed by 60mg prednisone daily - infectious less likely with 3 week time course, GI panel pending - tolerating diet, still eating small amounts # SEAN - suspect prerenal in the setting of N/V/D and poor PO intake - s/p IV fluids. Monitor BMP daily. - hold home nephrotoxic medications # Anemia: Acute on chronic: possibly GIB vs. chemo induced marrow suppressive effects on chronic malignancy related anemia - s/p 2u pRBCs, H/H improved. Monitor CBC daily and transfuse as needed - hematemesis after admission has resolved - IV protonix BID # Neutropenia - likely related to CA. - absolute neutrophil count = 2023 today - blood cultures x2 negative at 24 hours. urine culture shows contamination # Stage 4 lung adenoCA -Oncologist Dr. Coughlin consulted, appreciate his input and recommendations. # Hypertension. -hold home medications as she has had low-normal blood pressures # Chronic atrial fibrillation, rate controlled - Continue home flecainide, metoprolol - hold home Xarelto in the setting of GI bleed # Gout -hold home allopurinol in the setting of SEAN DVT prophylaxis: Teds and sequentials GI prophylaxis: IV PPI BID Disposition: pending clinical improvement Attending attestation: I evaluated and examined the patient in person; I discussed the care with Resident in detail and agree with the plan above. VS,Fishbone, I+O VS, Fishbone, I+O Laboratory Tests 09/30/19 05:35 Vital Signs Date Time Temp Pulse Resp B/P (MAP) Pulse Ox O2 Delivery O2 Flow Rate FiO2 09/30/19 04:33 99.0 83 20 136/59 (84) 98 Room Air I&O- Last 24 Hours up to 6 AM 09/30/19 06:00 Intake Total 1430 ml Output Total 900 ml Balance 530 ml ISSAC MARTELL D.O. September 30, 2019 10:31 CHRISTEL LUND MD October 02, 2019 19:48
[2019-09-30 14:00] VITALS: BP 118/75
--- NOTE | 2019-09-30 16:30 | IPNPDOC ---
Date Seen The patient was seen on 09/30/19. Progress Note SUBJECTIVE: Patient is seen as follow-up for metastatic lung cancer and recent GI bleed with diarrhea and concern for immune mediated colitis OBJECTIVE PHYSICAL EXAMINATION: VITAL SIGNS: Reviewed, please see below GENERAL: Alert, awake comfortable, in no acute distress HEENT: No icterus NECK: Supple, no lymphadenopathy CARDIOVASCULAR: irregular rhythm, rate controlled without significant murmur RESPIRATORY: Clear to auscultation bilaterally with dullness at the bases ABDOMEN: Soft, nontender, nondistended, bowel sounds present. No pain on palpation EXTREMITIES: No rashes or clear edema noted NEUROLOGIC: Alert and oriented 3 to person, place and time. PSYCHIATRIC: Mood and affect appropriate LABORATORY DATA, IMAGING STUDIES, MICROBIOLOGY: Please see below. ASSESSMENT AND PLAN: Given rapid resolution of diarrhea, would recommend holding off on oral steroids. This is not clearly immune mediated as patient had melena and hematemesis. Patient appears to have spontaneous resolution of her GI bleed Patient's blood counts are trending down as expected. 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 Mutation analysis negative, PDL1 0% + status post cycle #2 palliative chemotherapy with pembrolizumab/carboplatinum/pemetrexed. Patient presented with acute GI bleed with coffee-ground emesis, melena, dehydration, prerenal azotemia with worsening chronic kidney insufficiency and grade 2 diarrhea. She also had episode of hypotension particularly related to acute GI bleed Patient has clinically improved and hemoglobin is holding 9.6 Discussed with attending team and Dr. Shanks Recommend no further steroids Would like to see the patient in the office next week Next Thursday, or Thursday with blood work then Expect further drop of white blood cell count and platelet count as expected due to chemotherapy Continue folic acid VS, I&O, 24H, Jemma Vital Signs/I&O Vital Signs Date Time Temp Pulse Resp B/P (MAP) Pulse Ox O2 Delivery O2 Flow Rate FiO2 09/30/19 04:33 99.0 83 20 136/59 (84) 98 Room Air I&O- Last 24 Hours up to 6 AM 09/30/19 06:00 Intake Total 1430 ml Output Total 900 ml Balance 530 ml Laboratory Data 24H LABS Laboratory Tests 2 09/30/19 05:35: Neutrophils (%) (Auto) , Nucleated Red Blood Cells % (auto) 0.0, Neutrophils 91H, Band Neutrophils 1, Lymphocytes (Manual) 7L, Eosinophils (Manual) 1, Anisocytosis 1+, Platelet Estimate DECREASED, Immature Platelet Fraction 1.4, Anion Gap 11, Glomerular Filtration Rate 30.4L, Calcium Level 7.7L, Total Bilirubin 0.7, Aspartate Amino Transf (AST/SGOT) 21, Alanine Aminotransferase (ALT/SGPT) 20, Alkaline Phosphatase 56, Total Protein 4.9L, Albumin 1.9L, Albumin/Globulin Ratio 0.6L CBC/BMP Laboratory Tests 09/30/19 05:35 Microbiology Microbiology 09/29/19 Urine Culture - Final, Complete 09/28/19 Blood Culture - Preliminary, Resulted No growth after 24 hours . All specim... 09/28/19 Blood Culture - Preliminary, Resulted No growth after 24 hours . All specim... DEVAUGHN RAYA MD September 30, 2019 16:30
[2019-09-30 22:00] VITALS: BP 118/73
[2019-10-01] VITALS (8 sets, daily range): BP systolic 123–138; BP diastolic 68–76
[2019-10-01] MEDS: ACETAMINOPHEN 500 MG TAB PO PRN (01:33)
[2019-10-01 06:09] LABS: HEMATOCRIT 22.7 % (36.0-47.0); MEAN CORPUSCULAR HEMOGLOBIN 29.8 pg (27.0-33.0); MEAN CORPUSCULAR VOLUME 90.1 fl (80.0-96.0); RED BLOOD COUNT 2.52 10^6/uL (4.00-5.40); WHITE BLOOD COUNT 1.1 10^3/uL (4.0-10.0)
[2019-10-01 06:41] LABS: ALBUMIN 1.7 GM/DL (3.2-5.2); BILIRUBIN,TOTAL 0.3 MG/DL (0.2-1.0); CREATININE FOR GFR 1.64 MG/DL (0.55-1.30); GLOMERULAR FILTRATION RATE 31.7 (>32); POTASSIUM SERUM 4.1 MEQ/L (3.5-5.1); TOTAL PROTEIN 4.3 GM/DL (6.4-8.2)
[2019-10-01 06:52] LABS: PLATELET COUNT, AUTOMATED 45 10^3/uL (150-450)
[2019-10-01 06:53] LABS: HEMOGLOBIN 7.5 g/dl (12.0-15.5)
[2019-10-01 07:02] LABS: ANISOCYTOSIS 1+; HYPOCHROMASIA 1+; LYMPHOCYTES 24 % (16-44); MICROCYTOSIS 1+; NEUTROPHILS 76 % (28-66); PLATELET ESTIMATE DECREASED (NORMAL)
[2019-10-01] MEDS: PANTOPRAZOLE 40MG VIAL (C9113 PER 1) IV SCH ×2 (08:17→20:05)
[2019-10-01] MEDS: ASCORBIC ACID 500 MG TAB PO SCH (08:18)
[2019-10-01] MEDS: FLECAINIDE 50MG TABLET PO SCH ×2 (08:18→20:05)
[2019-10-01] MEDS: FOLIC ACID 1 MG TAB PO SCH (08:18)
[2019-10-01] MEDS: VITAMIN D 1,000 INTERNATIONAL UNITS TABLET PO SCH (08:18)
[2019-10-01] MEDS: PROCHLORPERAZINE 5 MG TAB (S0183) PO SCH ×3 (08:18→20:05)
[2019-10-01] MEDS ORDERED: METOPROLOL TART 25 MG TABLET PO SCH (09:00)
[2019-10-01] MEDS ORDERED: FUROSEMIDE 20MG/2ML VIAL (J1940) IV ONE (11:00)
--- NOTE | 2019-10-01 14:07 | IPNPDOC ---
Text Note Date of Service The patient was seen on 10/01/19. NOTE SUBJECTIVE: Concepcion Nayak was seen and examined this morning lying comfortably in bed. No nausea, vomiting, abdominal pain, or diarrhea. No fevers/chills. She states she is eating about the same. She states she would try entresto with meals and ice cream to increase her caloric intake. OBJECTIVE: VITAL SIGNS: See below GENERAL: Alert, comfortable, in no acute distress HEENT: Normocephalic, atraumatic, sclerae anicteric, moist mucous membranes NECK: Supple, no lymphadenopathy, no JVD CARDIOVASCULAR: irregular rhythm, regular rate, normal S1 and S2. No murmurs, rubs, or gallops RESPIRATORY: Clear to auscultation bilaterally with equal air entry bilaterally. No wheezing, rhonchi, or rales. ABDOMEN: Soft, nontender, nondistended, bowel sounds present EXTREMITIES: No cyanosis or edema. Pulses 2+/4 in bilateral upper and lower extremities SKIN: No rash. NEUROLOGIC: Alert and oriented 3 to person, place and time. No focal deficits appreciated PSYCHIATRIC: Mood and affect appropriate ASSESSMENT: 84-year-old female with a recent diagnosis of DIONNA stage 4 adenocarcinoma recently started on prembro/carboplatin/premetrexed who presented to [facility] as a transfer from [facility] with persistent non bloody diarrhea of 2- 3 weeks, nausea, some nonbloody emesis, poor PO intake, found to be anemic, leukopenic and requested transfer to [facility] for possible chemo induced colitis. PLAN: # Diarrhea, resolved - suspect chemo induced immune-mediated colitis - oncology consulted, recommended 1000mg IV solumedrol once followed by 60mg prednisone. Discontinued now that diarrhea resolved. - infectious less likely with 3 week time course, GI panel pending - tolerating diet, still eating small amounts # SEAN - suspect prerenal in the setting of N/V/D and poor PO intake - s/p IV fluids. Monitor BMP daily. - hold home nephrotoxic medications # Anemia: Acute on chronic: possibly GIB vs. chemo induced marrow suppressive effects on chronic malignancy related anemia - s/p 2u pRBCs, H/H improved. Monitor CBC daily and transfuse as needed - hematemesis after admission has resolved - IV protonix BID # Neutropenia - likely related to CA. - absolute neutrophil count = 836 today - blood cultures x2 negative at 24 hours. urine culture shows contamination # Stage 4 lung adenoCA -Oncologist Dr. Coughlin consulted, appreciate his input and recommendations. # Hypertension. -hold home medications as she has had low-normal blood pressures # Chronic atrial fibrillation, rate controlled - Continue home flecainide, restart home metoprolol - hold home Xarelto in the setting of GI bleed # Gout -hold home allopurinol in the setting of SEAN DVT prophylaxis: Teds and sequentials GI prophylaxis: IV PPI BID Disposition: pending clinical improvement Attending attestation: I evaluated and examined the patient in person; I discussed the care with Resident in detail and agree with the plan above. VS,Fishbone, I+O VS, Fishbone, I+O Laboratory Tests 10/01/19 05:52 Vital Signs Date Time Temp Pulse Resp B/P (MAP) Pulse Ox O2 Delivery O2 Flow Rate FiO2 10/01/19 12:30 98.6 125 18 127/75 Room Air 10/01/19 06:00 92 I&O- Last 24 Hours up to 6 AM 10/01/19 06:00 Intake Total 420 ml Output Total 600 ml Balance -180 ml ISSAC MARTELL D.O. October 01, 2019 14:07 CHRISTEL LUND MD October 02, 2019 19:56
[2019-10-01] MEDS: METOPROLOL TART 50 MG TAB PO SCH (20:05)
--- NOTE | 2019-10-02 01:03 | ECGEPIP ---
[facility] Test Date: 2019-10-01 Pat Name: OMAR MANZO Department: Room: [place] [address] Gender: Female [employer]: YOON : 1935 Requested By: ISSAC MARTELL D.O. Order Number: [id number] Reading MD: Bharath Gutierrez Measurements Intervals [place] Rate: 118 P: RI: 0 QRS: 45 QRSD: 111 T: 266 QT: 313 QTc: 439 Interpretive Statements ATRIAL FIBRILLATION WITH RAPID VENTRICULAR RESPONSE MODERATE INTRAVENTRICULAR CONDUCTION DELAY NONSPECIFIC ST & T-WAVE ABNORMALITY Last tracing on 07/07/19 at 19:53, normal sinus rhyth was noted Electronically Signed on 10-02-2019 1:03:39 EDT by Bharath Gutierrez
[2019-10-02 06:00] VITALS: BP 114/60
[2019-10-02 06:28] LABS: LYMPH # 0.2 10^3/uL (1.5-5.0); LYMPH % 62.1 % (24.0-44.0); MEAN CORPUSCULAR HEMOGLOBIN 29.6 pg (27.0-33.0); MEAN CORPUSCULAR HGB CONC 33.3 g/dl (32.0-36.5); MEAN CORPUSCULAR VOLUME 88.8 fl (80.0-96.0); RED BLOOD COUNT 3.04 10^6/uL (4.00-5.40)
[2019-10-02 06:31] LABS: NEUTROPHILS # 0.1 10^3/uL (1.5-8.5); PLATELET COUNT, AUTOMATED 26 10^3/uL (150-450); WHITE BLOOD COUNT 0.3 10^3/uL (4.0-10.0)
[2019-10-02 06:57] LABS: BILIRUBIN,TOTAL 0.7 MG/DL (0.2-1.0); CREATININE FOR GFR 1.57 MG/DL (0.55-1.30); GLOMERULAR FILTRATION RATE 33.3 (>32); POTASSIUM SERUM 3.3 MEQ/L (3.5-5.1); TOTAL PROTEIN 4.7 GM/DL (6.4-8.2)
[2019-10-02] MEDS: METOPROLOL TART 50 MG TAB PO SCH ×2 (08:53→20:23)
[2019-10-02] MEDS: PANTOPRAZOLE 40MG VIAL (C9113 PER 1) IV SCH (08:53)
[2019-10-02] MEDS: POTASSIUM CHLORIDE 10 MEQ SR TABLET PO SCH ×2 (08:53→13:29)
[2019-10-02] MEDS: FOLIC ACID 1 MG TAB PO SCH (08:53)
[2019-10-02] MEDS: VITAMIN D 1,000 INTERNATIONAL UNITS TABLET PO SCH (08:53)
[2019-10-02] MEDS: ASCORBIC ACID 500 MG TAB PO SCH (08:53)
[2019-10-02] MEDS: FLECAINIDE 50MG TABLET PO SCH ×2 (08:53→20:23)
[2019-10-02] MEDS: PROCHLORPERAZINE 5 MG TAB (S0183) PO SCH ×3 (08:53→20:23)
[2019-10-02] MEDS: SODIUM CHLORIDE 0.9% INJ 10 ML SYR IV SCH (08:53)
--- NOTE | 2019-10-02 12:21 | IPNPDOC ---
Date Seen The patient was seen on 10/02/19. Progress Note SUBJECTIVE: 84-year-old female with metastatic lung cancer is admitted for colitis and pancytopenia requiring blood transfusions. She was initially treated with high-dose steroids as per oncology recommendations, later discontinued due to significant improvement in diarrhea. Patient has received 3 units of packed red blood cells causing volume overload, received IV Lasix yesterday with significant clinical improvement. She feels well today, having minimal dyspnea, no other complaints. She has not had any more diarrhea. She did have 3 episodes of vomiting in the last 24 hours, nonbloody. She denies any chest pain, abdominal pain or headaches. 10 point review of system is negative except for above PHYSICAL EXAMINATION: VITAL SIGNS: Please see below. GENERAL: No distress HEENT: Normocephalic, atraumatic, moist mucous membranes NECK: Supple CARDIOVASCULAR EXAMINATION: S1, S2, tachycardic, no murmurs RESPIRATORY EXAMINATION: Scattered rhonchi on the left side, diminished in the bases, no wheezing ABDOMINAL EXAMINATION: Soft, nontender, nondistended, positive bowel sounds EXTREMITIES: Lower show any edema appreciated SKIN: No rash NEUROLOGICAL EXAMINATION: no focal deficits PSYCHIATRIC EXAMINATION: Calm and cooperative LABORATORY DATA, IMAGING STUDIES, MICROBIOLOGY: Please see below. ASSESSMENT AND PLAN: 84-year-old female with metastatic lung cancer is admitted for pancytopenia and colitis along with possible blood loss anemia. PROBLEMS: 1. Pancytopenia: Secondary to chemotherapy for lung cancer, status post 3 units of packed red blood cell transfusions, no other intervention needed at this time, we'll monitor CBC daily. 2. Volume overload: Secondary to PRBC transfusions, will give another dose of Lasix 20 g IV today. 3. Atrial fibrillation: Holding anticoagulation due to severe thrombocytopenia, continue metoprolol and Flecanide. 4. Acute on chronic kidney disease: Possibly related to chemotherapy versus cardiorenal syndrome, we'll monitor with further diuresis. DVT prophylaxis: SCDs. GI prophylaxis: PPI VS, I&O, 24H, Fishbone Vital Signs/I&O Vital Signs Date Time Temp Pulse Resp B/P (MAP) Pulse Ox O2 Delivery O2 Flow Rate FiO2 10/02/19 08:53 94 114/60 10/02/19 06:00 97.5 18 94 Room Air I&O- Last 24 Hours up to 6 AM 10/02/19 06:00 Intake Total 1075 ml Output Total 1725 ml Balance -650 ml Laboratory Data 24H LABS Laboratory Tests 2 10/02/19 06:07: Immature Granulocyte % (Auto) 6.9H, Neutrophils (%) (Auto) 31.0L, Lymphocytes (%) (Auto) 62.1H, Monocytes (%) (Auto) 0.0, Eosinophils (%) (Auto) 0.0, Basophils (%) (Auto) 0.0, Neutrophils # (Auto) 0.1L, Lymphocytes # (Auto) 0.2L, Monocytes # (Auto) 0.0, Eosinophils # (Auto) 0.0, Basophils # (Auto) 0.0, Nucleated Red Blood Cells % (auto) 0.0, Immature Platelet Fraction 1.7, Anion Gap 10, Glomerular Filtration Rate 33.3, Calcium Level 8.0L, Total Bilirubin 0.7#, Aspartate Amino Transf (AST/SGOT) 23, Alanine Aminotransferase (ALT/SGPT) 27, Alkaline Phosphatase 49, Total Protein 4.7L, Albumin 2.0L, Albumin/Globulin Ratio 0.7L CBC/BMP Laboratory Tests 10/02/19 06:07 Microbiology Microbiology 09/29/19 Urine Culture - Final, Complete 09/28/19 Blood Culture - Preliminary, Resulted No Growth after 72 hours. All specime... 09/28/19 Blood Culture - Preliminary, Resulted No Growth after 72 hours. All specime... CHRISTEL LUND MD October 02, 2019 12:21
[2019-10-02] MEDS ORDERED: FUROSEMIDE 20MG/2ML VIAL (J1940) IV ONE (13:00)
[2019-10-02 14:00] VITALS: BP 113/62
[2019-10-02] MEDS: PANTOPRAZOLE 40MG TAB (PROTONIX) PO SCH (20:23)
[2019-10-02 22:00] VITALS: BP 113/63
[2019-10-03] VITALS (11 sets, daily range): BP systolic 94–135; BP diastolic 53–83
[2019-10-03] MEDS: SODIUM CHLORIDE 0.9% INJ 10 ML SYR IV SCH (05:59)
[2019-10-03 06:22] LABS: HEMATOCRIT 27.9 % (36.0-47.0); HEMOGLOBIN 9.2 g/dl (12.0-15.5); LYMPH # 0.2 10^3/uL (1.5-5.0); LYMPH % 94.4 % (24.0-44.0); MEAN CORPUSCULAR HEMOGLOBIN 29.7 pg (27.0-33.0); NEUTROPHILS % 5.6 % (36.0-66.0)
[2019-10-03 06:23] LABS: PLATELET COUNT, AUTOMATED 13 10^3/uL (150-450); WHITE BLOOD COUNT 0.2 10^3/uL (4.0-10.0)
[2019-10-03 06:55] LABS: BILIRUBIN,TOTAL 1.2 MG/DL (0.2-1.0); CALCIUM LEVEL 8.1 MG/DL (8.8-10.2); CREATININE FOR GFR 1.65 MG/DL (0.55-1.30); GLOMERULAR FILTRATION RATE 31.5 (>32); POTASSIUM SERUM 3.7 MEQ/L (3.5-5.1); TOTAL PROTEIN 5.5 GM/DL (6.4-8.2)
[2019-10-03 07:55] LABS: MAGNESIUM LEVEL 1.4 MG/DL (1.8-2.4); PHOSPHORUS LEVEL 2.5 MG/DL (2.5-4.9)
[2019-10-03] MEDS: MAG SULF 1GM/100ML (MAG RUN) 1 GM in IV 1 EA IV SCH ×4 (08:42→11:47)
[2019-10-03] MEDS: ASCORBIC ACID 500 MG TAB PO SCH (08:43)
[2019-10-03] MEDS: PROCHLORPERAZINE 5 MG TAB (S0183) PO SCH ×3 (08:43→22:29)
[2019-10-03] MEDS: FLECAINIDE 50MG TABLET PO SCH ×2 (08:43→22:30)
[2019-10-03] MEDS: FOLIC ACID 1 MG TAB PO SCH (08:43)
[2019-10-03] MEDS: VITAMIN D 1,000 INTERNATIONAL UNITS TABLET PO SCH (08:43)
[2019-10-03] MEDS: PANTOPRAZOLE 40MG TAB (PROTONIX) PO SCH ×2 (08:43→22:30)
[2019-10-03] MEDS: METOPROLOL TART 50 MG TAB PO SCH ×2 (08:43→22:31)
[2019-10-03] MEDS: ONDANSETRON 4MG/2ML VIAL IV PRN ×4 (08:46→21:47)
[2019-10-03] MEDS ORDERED: MAGNESIUM GLUCONATE 500 MG TAB PO ONE (10:00)
[2019-10-03] MEDS ORDERED: ONDANSETRON 4MG/2ML VIAL IV ONE (10:00)
--- NOTE | 2019-10-03 11:04 | REP ---
REASON FOR EXAM: Followup. COMPARISON: Multiple, the latest 07/21/2019. Preliminary report was given by Dr. Quesada at the time the examination was performed. Since the last examination, a MediPort device has been placed, the tip is in the superior vena cava. There is no significant change in the appearance of the cardiomediastinal silhouette. There are patchy opacities seen throughout the left lung, which have increased with left CP angle blunting. There is no significant change in appearance of the right lung field. The right CP angle remains clear. There is no significant change in appearance of the osseous structures. IMPRESSION: Increasing left lung opacities. Consider chest CT. Electronically Signed by Eric Woodard DO 10/03/2019 11:54 A
[2019-10-03] MEDS ORDERED: PROMETHAZINE INJ 25 MG/ML VIAL (J2550) IV PRN (14:30)
--- NOTE | 2019-10-03 17:37 | IPNPDOC ---
Date Seen The patient was seen on 10/03/19. Progress Note SUBJECTIVE: Patient was seen and examined at the [facility] this morning. She states her stomach feels "uneasy" and she has no appetite. She is not having any diarrhea. She is actively vomiting green liquid this morning and has has several episodes of emesis throughout the day. She was seen again this afternoon sleeping peacefully in bed. Nursing reports she tolerated platelet transfusion well. OBJECTIVE: VITAL SIGNS: See below GENERAL: Sitting up in bed vomiting green liquid and actively dry heaving HEENT: Normocephalic, atraumatic, sclerae anicteric, moist mucous membranes NECK: Supple, no lymphadenopathy, slightly elevated JVD CARDIOVASCULAR: irregular rhythm, regular rate, normal S1 and S2. No murmurs, rubs, or gallops RESPIRATORY: Clear to auscultation bilaterally with equal air entry bilaterally. No wheezing, rhonchi, or rales. ABDOMEN: Soft, nontender, nondistended, bowel sounds present EXTREMITIES: No cyanosis or edema. Pulses 2+/4 in bilateral upper and lower extremities SKIN: No rash. NEUROLOGIC: Alert and oriented 3 to person, place and time. No focal deficits appreciated PSYCHIATRIC: Mood and affect appropriate ASSESSMENT: 84-year-old female with a recent diagnosis of DIONNA stage 4 adenocarcinoma recently started on prembro/carboplatin/premetrexed who presented to [facility] as a transfer from [facility] with persistent non bloody diarrhea of 2- 3 weeks, nausea, some nonbloody emesis, poor PO intake, found to be anemic, leukopenic and possible chemo induced colitis. PLAN: # Diarrhea, resolved - suspect chemo induced immune-mediated colitis - oncology consulted, recommended 1000mg IV solumedrol once followed by 60mg prednisone. Discontinued now that diarrhea resolved. - infectious less likely with 3 week time course, GI panel pending - tolerating diet, still eating small amounts # SEAN - suspect prerenal in the setting of N/V/D and poor PO intake - s/p IV fluids. Monitor BMP daily. - hold home nephrotoxic medications #Thrombocytopenia: -1u platelets transfused today # Anemia: Acute on chronic: possibly GIB vs. chemo induced marrow suppressive effects on chronic malignancy related anemia - s/p 2u pRBCs, H/H improved. Monitor CBC daily and transfuse as needed - IV protonix BID # Neutropenia - likely related to CA. - absolute neutrophil count = 11.0 today. Oncology made aware - blood cultures x2 negative at 24 hours. urine culture shows contamination # Stage 4 lung adenoCA -Oncologist Dr. Coughlin consulted, appreciate recommendations. # Hypertension. -Continue Metoprolol tartrate 50 BID, holding other meds # Chronic atrial fibrillation, rate controlled - Continue home flecainide - hold home Xarelto in the setting of GI bleed # Gout -hold home allopurinol in the setting of SEAN DVT prophylaxis: Teds and sequentials GI prophylaxis: IV PPI BID Disposition: pending clinical improvement Attending attestation: I evaluated and examined the patient in person; I discussed the care with Resident in detail and agree with the plan above. VS, I&O, 24H, Fishbone Vital Signs/I&O Vital Signs Date Time Temp Pulse Resp B/P (MAP) Pulse Ox O2 Delivery O2 Flow Rate FiO2 10/03/19 16:50 98.3 98 20 102/64 94 Room Air I&O- Last 24 Hours up to 6 AM 10/03/19 06:00 Intake Total 360 ml Output Total 150 ml Balance 210 ml Laboratory Data 24H LABS Laboratory Tests 2 10/03/19 06:02: Immature Granulocyte % (Auto) 0.0, Neutrophils (%) (Auto) 5.6L, Lymphocytes (%) (Auto) 94.4H, Monocytes (%) (Auto) 0.0, Eosinophils (%) (Auto) 0.0, Basophils (%) (Auto) 0.0, Neutrophils # (Auto) 0.0L, Lymphocytes # (Auto) 0.2L, Monocytes # (Auto) 0.0, Eosinophils # (Auto) 0.0, Basophils # (Auto) 0.0, Nucleated Red Blood Cells % (auto) 0.0, Anion Gap 8, Glomerular Filtration Rate 31.5L, Calcium Level 8.1L, Phosphorus Level 2.5, Magnesium Level 1.4L, Total Bilirubin 1.2#H, Aspartate Amino Transf (AST/SGOT) 23, Alanine Aminotransferase (ALT/SGPT) 30, Alkaline Phosphatase 57, Total Protein 5.5L, Albumin 2.0L, Albumin/Globulin Ratio 0.6L CBC/BMP Laboratory Tests 10/03/19 06:02 Microbiology Microbiology 09/29/19 Urine Culture - Final, Complete 09/28/19 Blood Culture - Preliminary, Resulted No Growth after 72 hours. All specime... 09/28/19 Blood Culture - Preliminary, Resulted No Growth after 72 hours. All specime... GME ATTESTATION GME ATTESTATION My faculty preceptor for this patient encounter was physically present during the encounter and was fully available. All aspects of the patient interview, examination, medical decision making process, and medical care plan development were reviewed and approved by the faculty preceptor. The faculty preceptor is aware and concurs with the plan as stated in the body of this note and will attest to such by his/her cosignature. ISABEL CLARK MD October 03, 2019 17:37 CHRISTEL LUND MD October 10, 2019 21:34
[2019-10-03 18:39] LABS: HEMATOCRIT 28.1 % (36.0-47.0); HEMOGLOBIN 9.1 g/dl (12.0-15.5); LYMPH # 0.1 10^3/uL (1.5-5.0); MEAN CORPUSCULAR HEMOGLOBIN 29.2 pg (27.0-33.0); MEAN CORPUSCULAR HGB CONC 32.4 g/dl (32.0-36.5); MEAN CORPUSCULAR VOLUME 90.1 fl (80.0-96.0); RED BLOOD COUNT 3.12 10^6/uL (4.00-5.40)
[2019-10-03 18:52] LABS: PLATELET COUNT, AUTOMATED 54 10^3/uL (150-450); WHITE BLOOD COUNT 0.1 10^3/uL (4.0-10.0)
[2019-10-03] MEDS: SODIUM CHLORIDE 0.9% INJ 10 ML SYR IV PRN (21:47)
[2019-10-03] MEDS: ACETAMINOPHEN 500 MG TAB PO PRN (22:52)
[2019-10-04] VITALS (8 sets, daily range): BP systolic 98–118; BP diastolic 50–68
[2019-10-04] MEDS: PIPERACILLIN/TAZOBACTAM SOD 2.25 GM in D5W MINI-BAG PLUS 50 ML IV SCH ×4 (03:16→21:10)
[2019-10-04] MEDS ORDERED: METOPROLOL 5 MG/5 ML VIAL IV ONE (05:30)
[2019-10-04 05:35] LABS: HEMOGLOBIN 9.2 g/dl (12.0-15.5); LYMPH # 0.2 10^3/uL (1.5-5.0); LYMPH % 94.4 % (24.0-44.0); MEAN CORPUSCULAR HEMOGLOBIN 29.5 pg (27.0-33.0); MEAN CORPUSCULAR HGB CONC 32.9 g/dl (32.0-36.5); MEAN CORPUSCULAR VOLUME 89.7 fl (80.0-96.0); NEUTROPHILS % 5.6 % (36.0-66.0); RED BLOOD COUNT 3.12 10^6/uL (4.00-5.40)
[2019-10-04 05:41] LABS: PLATELET COUNT, AUTOMATED 32 10^3/uL (150-450); WHITE BLOOD COUNT 0.2 10^3/uL (4.0-10.0)
--- NOTE | 2019-10-04 08:19 | REP ---
PORTABLE CHEST X-RAY: Single view. HISTORY: Hypoxemia. COMPARISON STUDY: October 01, 2019. FINDINGS: A left internal jugular is central venous Aulmyz-D-Yart catheter is seen in place with its tip in the expected location of the superior vena cava as before. Oxygen delivery tubing and monitoring electrodes are seen. Cardiomegaly is observed. There is a diffuse interstitial edema pattern with some [place] lines. There is nodular and extensive pleural thickening in the left hemithorax vertically the apex but also extending laterally and inferiorly unchanged. There is diffuse osteopenia. No focal bony destructive lesion is appreciated. No new infiltrate. IMPRESSION: New interstitial pulmonary edema pattern. 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 Cardiomegaly. Electronically Signed by Omar Douglass MD 10/04/2019 09:04 A
[2019-10-04 08:55] LABS: BILIRUBIN,TOTAL 0.7 MG/DL (0.2-1.0); CALCIUM LEVEL 7.9 MG/DL (8.8-10.2); CREATININE FOR GFR 1.83 MG/DL (0.55-1.30); GLOMERULAR FILTRATION RATE 27.9 (>32); POTASSIUM SERUM 3.4 MEQ/L (3.5-5.1); TOTAL PROTEIN 5.2 GM/DL (6.4-8.2)
[2019-10-04] MEDS: PANTOPRAZOLE 40MG TAB (PROTONIX) PO SCH ×3 (08:56→21:10)
[2019-10-04] MEDS: VITAMIN D 1,000 INTERNATIONAL UNITS TABLET PO SCH (08:56)
[2019-10-04] MEDS: ASCORBIC ACID 500 MG TAB PO SCH (08:56)
[2019-10-04] MEDS: FLECAINIDE 50MG TABLET PO SCH (08:57)
[2019-10-04] MEDS: FOLIC ACID 1 MG TAB PO SCH (08:57)
[2019-10-04] MEDS: SODIUM CHLORIDE 0.9% INJ 10 ML SYR IV SCH (08:57)
[2019-10-04] MEDS: PROCHLORPERAZINE 5 MG TAB (S0183) PO SCH ×4 (08:57→21:10)
[2019-10-04] MEDS: METOPROLOL TART 50 MG TAB PO SCH ×3 (08:57→21:14)
[2019-10-04] MEDS: ONDANSETRON 4MG/2ML VIAL IV PRN ×2 (08:57→18:30)
[2019-10-04] MEDS ORDERED: VANCOMYCIN INTERMITTENT/PULSE DOSING BY CLINICAL PHARMACIST PER DOSING PROTOCOL XX SCH (09:30)
[2019-10-04] MEDS ORDERED: DIGOXIN INJ 0.5 MG/2 ML AMP (J1160) IV ONE (09:45)
[2019-10-04] MEDS ORDERED: VANCOMYCIN HCL 1,000 MG, VIAL MATE ADAPTER 1 EACH in D5W 250 ML IV ONE (10:00)
[2019-10-04] MEDS ORDERED: VANCOMYCIN HCL 750 MG, VIAL MATE ADAPTER 1 EACH in D5W 250 ML IV ONE (10:00)
[2019-10-04] MEDS ORDERED: POTASSIUM CHLORIDE 10% LIQ 20 MEQ/15 ML UDC PO ONE (11:00)
[2019-10-04] MEDS ORDERED: AMIODARONE HCL 150 MG in IV 1 EA IV ONE (12:00)
[2019-10-04] MEDS: KCL 10MEQ/100ML SWI (KRUN) 10 MEQ in IV 1 EA IV SCH ×4 (12:38→16:35)
[2019-10-04] MEDS ORDERED: AMIODARONE HCL 360 MG in IV 1 EA IV SCH (13:00)
[2019-10-04] MEDS: PROCHLORPERAZINE 10MG/2ML VIAL (J0780 PER 1) IV PRN ×2 (16:26→23:04)
[2019-10-04] MEDS: SODIUM CHLORIDE 0.9% INJ 10 ML SYR IV PRN (17:42)
[2019-10-04] MEDS: AMIODARONE HCL 360 MG in IV 1 EA IV SCH (18:30)
--- NOTE | 2019-10-04 20:04 | IPNPDOC ---
Date Seen The patient was seen on 10/04/19. Progress Note SUBJECTIVE: 84-year-old female with metastatic lung cancer was admitted for colitis and pancytopenia. She was febrile overnight and went into afib w/ RVR. She was started on antibiotics, blood cultures were drawn and she was given medication for rate control. She has been transferred to PCU, remains in Afib w/ RVR and currently experiencing dyspnea w/ continued vomiting. She has been unable to tolerate any PO since yesterday. She denies any CP, diarrhea or abdominal pain. She has no additional complaints at this time. 10 point review of system is negative except for above. 10 point review of system is negative except for above PHYSICAL EXAMINATION: VITAL SIGNS: Please see below. GENERAL: No distress HEENT: Normocephalic, atraumatic, moist mucous membranes NECK: Supple CARDIOVASCULAR EXAMINATION: irregularly irregular, tachycardic RESPIRATORY EXAMINATION: Scattered rhonchi on the left side, diminished in the bases, no wheezing ABDOMINAL EXAMINATION: Soft, nontender, nondistended, positive bowel sounds EXTREMITIES: +edema SKIN: No rash NEUROLOGICAL EXAMINATION: no focal deficits PSYCHIATRIC EXAMINATION: Calm and cooperative LABORATORY DATA, IMAGING STUDIES, MICROBIOLOGY: Please see below. ASSESSMENT AND PLAN: 84-year-old female with metastatic lung cancer is admitted for pancytopenia and colitis along with possible blood loss anemia. PROBLEMS: 1. Neutropenic fever - on empiric Vanc/Zosyn, cultures growing GNR, will discuss need for Neupogen w/ oncologist. 2. Afib w/ RVR - secondary to infection, s/p IV metoprolol & Digoxin without improvement, started on IV Amiodarone load after discussion w/ Dr. Sage, Flecanide has been dced. 3. CHF - Acute exacerbation secondary to Afib w/ RVR, would like to diurese but BP is labile and patient has been vomiting/unable to tolerate PO for >24 hours. Will monitor through today & reassess for diuresis in the morning. 4. Acute on chronic kidney disease: Possibly related to chemotherapy versus cardiorenal syndrome, creatinine slightly worse today, probably related to infection/CHF, will monitor for now, expect improvement with better rate control. DVT prophylaxis: SCDs. GI prophylaxis: PPI VS, I&O, 24H, Fishbone Vital Signs/I&O Vital Signs Date Time Temp Pulse Resp B/P (MAP) Pulse Ox O2 Delivery O2 Flow Rate FiO2 10/04/19 16:00 2.0 10/04/19 15:44 99.0 115 18 95 Nasal Cannula 10/04/19 15:34 105/60 (75) I&O- Last 24 Hours up to 6 AM 10/04/19 06:00 Intake Total 1214 ml Output Total 800 ml Balance 414 ml Laboratory Data 24H LABS Laboratory Tests 2 10/04/19 05:12: Immature Granulocyte % (Auto) 0.0, Neutrophils (%) (Auto) 5.6L, Lymphocytes (%) (Auto) 94.4H, Monocytes (%) (Auto) 0.0, Eosinophils (%) (Auto) 0.0, Basophils (%) (Auto) 0.0, Neutrophils # (Auto) 0.0L, Lymphocytes # (Auto) 0.2L, Monocytes # (Auto) 0.0, Eosinophils # (Auto) 0.0, Basophils # (Auto) 0.0, Nucleated Red Blood Cells % (auto) 0.0, Anion Gap 11, Glomerular Filtration Rate 27.9L, Calcium Level 7.9L, Total Bilirubin 0.7, Aspartate Amino Transf (AST/SGOT) 17, Alanine Aminotransferase (ALT/SGPT) 26, Alkaline Phosphatase 55, Total Protein 5.2L, Albumin 2.0L, Albumin/Globulin Ratio 0.6L 10/04/19 13:30: Methicillin-Resist S.aureus DNA PCR NOT DETECTED 10/04/19 16:13: Urine Color TIGIST, Urine Appearance CLOUDYH, Urine pH 5.0, Urine Specific [place] 1.020, Urine Protein 2+H, Urine Glucose (UA) 1+H, Urine Ketones NEG ATIVE, Urine Blood 2+H, Urine Nitrite NEGATIVE, Urine Bilirubin NEGATIVE, Urine Urobilinogen 0.2, Urine Leukocyte Esterase NEGATIVE, Urine WBC (Auto) 5H, Urine RBC (Auto) 3, Urine Hyaline Casts (Auto) 1, Urine Bacteria (Auto) 3+H, Urine Squamous Epithelial Cells 1, Urine Amorphous Sediment SMALLH, Urine Mucus (Auto) SMALL, Urine Sperm (Auto) CBC/BMP Laboratory Tests 10/04/19 05:12 Microbiology Microbiology 10/04/19 Blood Culture, Received Pending 10/04/19 Blood Culture - Preliminary, Resulted 09/29/19 Urine Culture - Final, Complete 09/28/19 Blood Culture - Final, Complete NO GROWTH AFTER 5 DAYS 09/28/19 Blood Culture - Final, Complete NO GROWTH AFTER 5 DAYS CHRISTEL LUND MD October 04, 2019 20:04
[2019-10-04] MEDS ORDERED: METOPROLOL 5 MG/5 ML VIAL IV STA (23:09)
[2019-10-05] VITALS (63 sets, daily range): BP systolic 67–116; BP diastolic 38–68
[2019-10-05] MEDS ORDERED: NS 250 ML IV ONE (00:15)
[2019-10-05] MEDS ORDERED: NS 1,000 ML IV SCH (00:15)
[2019-10-05] MEDS ORDERED: DIGOXIN INJ 0.5 MG/2 ML AMP (J1160) IV STA (00:36)
[2019-10-05] MEDS: PROMETHAZINE INJ 25 MG/ML VIAL (J2550) IV PRN ×2 (01:41→20:48)
[2019-10-05] MEDS ORDERED: DIGOXIN INJ 0.5 MG/2 ML AMP (J1160) IV ONE (03:30)
[2019-10-05] MEDS: PIPERACILLIN/TAZOBACTAM SOD 2.25 GM in D5W MINI-BAG PLUS 50 ML IV SCH ×4 (03:35→20:48)
[2019-10-05] MEDS: AMIODARONE HCL 360 MG in IV 1 EA IV SCH (05:46)
[2019-10-05 05:59] LABS: HEMATOCRIT 23.2 % (36.0-47.0); HEMOGLOBIN 7.7 g/dl (12.0-15.5); LYMPH # 0.1 10^3/uL (1.5-5.0); LYMPH % 93.3 % (24.0-44.0); MEAN CORPUSCULAR HEMOGLOBIN 29.7 pg (27.0-33.0); MEAN CORPUSCULAR HGB CONC 33.2 g/dl (32.0-36.5); MEAN CORPUSCULAR VOLUME 89.6 fl (80.0-96.0); MONO % 6.7 % (0.0-5.0); RED BLOOD COUNT 2.59 10^6/uL (4.00-5.40)
[2019-10-05 06:03] LABS: PLATELET COUNT, AUTOMATED 11 10^3/uL (150-450); WHITE BLOOD COUNT 0.2 10^3/uL (4.0-10.0)
[2019-10-05 06:18] LABS: ALBUMIN 1.2 GM/DL (3.2-5.2); BILIRUBIN,TOTAL 0.5 MG/DL (0.2-1.0); CALCIUM LEVEL 6.6 MG/DL (8.8-10.2); CREATININE FOR GFR 2.04 MG/DL (0.55-1.30); GLOMERULAR FILTRATION RATE 24.6 (>32); PHOSPHORUS LEVEL 2.7 MG/DL (2.5-4.9); POTASSIUM SERUM 3.3 MEQ/L (3.5-5.1); TOTAL PROTEIN 4.5 GM/DL (6.4-8.2); VANCOMYCIN RANDOM 6.5 UG/ML
[2019-10-05] MEDS ORDERED: VANCOMYCIN HCL 750 MG, VIAL MATE ADAPTER 1 EACH in D5W 250 ML IV ONE (06:30)
--- NOTE | 2019-10-05 06:36 | ECGEPIP ---
[facility] Test Date: 2019-10-05 Pat Name: OMAR MANZO Department: Room: [place] [address] Gender: Female Personal Care Aide: : 1935 Requested By: Amena Nava Order Number: [id number] Reading MD: Kiki Bishop Measurements Intervals [place] Rate: 134 P: WA: 0 QRS: 50 QRSD: 98 T: 263 QT: 267 QTc: 400 Interpretive Statements ATRIAL FIBRILLATION WITH RAPID VENTRICULAR RESPONSE ST & T-WAVE ABNORMALITY SIMILAR TO 10/01/19 Electronically Signed on 10-05-2019 6:36:36 EDT by Kiki Bishop
--- NOTE | 2019-10-05 07:20 | IPNPDOC ---
Date Seen The patient was seen on 10/05/19. Progress Note SUBJECTIVE: I was called to the patient's room for the evening due to increased heart rate 140-190's while amiodarone drip at 17 mL/hour. According to previous notes, the patient has failed multiple treatments including amiodarone, digoxin, Lopressor for atrial fibrillation. The patient had been vomiting throughout the day and could not keep down some of her antinausea medications. She was given 5 mg of IV Lopressor and Phenergan 25 mg IV. Blood pressure dropped to 80s systolic and she was given a tuna 50 mL bolus of normal saline. She was also started on normal saline IV fluids at 100 mL/h due to having poor oral intake and concern for dehydration developing. Dr. Sage (cardiology) discussed the case over the evening and was familiar with her case. It was recommended to give 2 doses of digoxin 0.25 IV 2 hours apart. Blood pressure remained low and heart rate remained 160s through 190s over the evening even while given digoxin. GNR growing in one blood culture, other NG. Cardiology did not recommend anything else due to low blood pressures. Patient was not easily aroused by myself, especially after phenergan. I attempted to call the patient's daughter , Yasmine Gonzalez, but left two voice mails. Troponin neg, AM labs showed H/H, PLTS decreased. Occult blood ordered. HR still uncontrolled;however, when reassessed at 6:45 AM patient was sitting up on the toilet more awake and alert. I discussed her current status with her, her dangerously high HR and the consequences if no additional treatment to be given. She would like to "keep trying" with whatever treatment she can get. Lactic acid is pending also. Will pass on to day team to follow up. AM labs pending. OBJECTIVE: VITAL SIGNS: Please see below PHYSICAL EXAMINATION: CONSTITUTIONAL: Lethargic, awake and O x 3 EYES: PERRLA, EOM intact HENT, MOUTH: Normocephalic, atraumatic, moist mucous membranes NECK: SUPPLE, no JVD, no lymphadenopathy, no carotid bruit CV: irregularly, irregular rate, tachycardic. S1S2 normal, no murmurs/rubs/gallops CHEST: Chemo port in left chest RESPIRATORY: Clear to auscultation bilaterally, no rales/rhonchi/wheezes GI: BS positive in 4 quadrants, soft, nontender, nondistended, no rebound or guarding, no organomegaly : Deferred MUSCULOSKELETAL: ROM not performed. No cyanosis, clubbing, swelling, joint deformity, extremity edema INTEGUMENTARY: Intact, no rashes, no lesions, no erythema NEUROLOGIC: Cranial Nerves II-XII are intact, no focal deficits CURRENT MEDICATIONS: Please see below LABORATORY DATA: Please see below IMAGING: No new imaging. ASSESSMENT/PLAN: 1. Atrial fib with RVR, uncontrolled. S/p 5 mg IV lopressor, 0.25 mg digoxin IV x 2 over 3 hrs with persistent HR 160-190. Patient was lethargic, at times short of breath and nauseous. Discussed case with cardiology, not much else to give her with current blood pressure. Code status was discussed in detail but patient would like to remain DNR/DNI with interventions done if needed within parameters set. C/w amiodarone gtt, cardiology consulted. 2. Acute kidney injury. Started on IVFs currently at 80 cc/hr, f/u AM labs. 3. Altered mental status during evening likely 2/2 to problem #1. Improved slightly this AM. 4. Anemia, worsened. Given fluids overnight; however, all cell lines not decreased. Occult blood ordered. S/p 3 units PRBC this admission. Will discuss with AM team. 5. Thrombocytopenia, worsened. S/p PLTs transfused this admission. Will discuss with AM team. VS, I&O, 24H, Fishbone Vital Signs/I&O Vital Signs Date Time Temp Pulse Resp B/P (MAP) Pulse Ox O2 Delivery O2 Flow Rate FiO2 10/05/19 04:00 99.7 130 18 90/50 (63) 90 Nasal Cannula 2.0 I&O- Last 24 Hours up to 6 AM 10/05/19 06:00 Intake Total 1405 ml Output Total 501 ml Balance 904 ml Laboratory Data 24H LABS Laboratory Tests 2 10/04/19 13:30: Methicillin-Resist S.aureus DNA PCR NOT DETECTED 10/04/19 16:13: Urine Color TIGIST, Urine Appearance CLOUDYH, Urine pH 5.0, Urine Specific [place] 1.020, Urine Protein 2+H, Urine Glucose (UA) 1+H, Urine Ketones NEGATIVE, Urine Blood 2+H, Urine Nitrite NEGATIVE, Urine Bilirubin NEGATIVE, Urine Urobilinogen 0.2, Urine Leukocyte Esterase NEGATIVE, Urine WBC (Auto) 5H, Urine RBC (Auto) 3, Urine Hyaline Casts (Auto) 1, Urine Bacteria (Auto) 3+H, Urine Squamous Epithelial Cells 1, Urine Amorphous Sediment SMALLH, Urine Mucus (Auto) SMALL, Urine Sperm (Auto) 10/05/19 02:51: Troponin I < 0.02 10/05/19 05:41: Immature Granulocyte % (Auto) 0.0, Neutrophils (%) (Auto) 0.0L, Lymphocytes (%) (Auto) 93.3H, Monocytes (%) (Auto) 6.7H, Eosinophils (%) (Auto) 0.0, Basophils (%) (Auto) 0.0, Neutrophils # (Auto) 0.0L, Lymphocytes # (Auto) 0.1L, Monocytes # (Auto) 0.0, Eosinophils # (Auto) 0.0, Basophils # (Auto) 0.0, Nucleated Red Blood Cells % (auto) 0.0, Immature Platelet Fraction 0.7, Anion Gap 12, Glomerular Filtration Rate 24.6L, Calcium Level 6.6#L, Phosphorus Level 2.7, Magnesium Level 2.0, Total Bilirubin 0.5, Aspartate Amino Transf (AST/SGOT) 8, Alanine Aminotransferase (ALT/SGPT) 14, Alkaline Phosphatase 38L, Total Protein 4.5L, Albumin 1.2#L, Albumin/Globulin Ratio 0.4L, Random Vancomycin Level 6.5 10/05/19 06:35: CBC/BMP Laboratory Tests 10/05/19 05:41 Microbiology Microbiology 10/05/19 Blood Culture, Received Pending 10/04/19 Blood Culture - Preliminary, Resulted No growth after 24 hours . All specim... 10/04/19 Blood Culture - Preliminary, Resulted 09/29/19 Urine Culture - Final, Complete 09/28/19 Blood Culture - Final, Complete NO GROWTH AFTER 5 DAYS 09/28/19 Blood Culture - Final, Complete NO GROWTH AFTER 5 DAYS Amena Lawson MD October 05, 2019 07:20
[2019-10-05] MEDS: PANTOPRAZOLE 40MG TAB (PROTONIX) PO SCH (08:44)
[2019-10-05] MEDS: FOLIC ACID 1 MG TAB PO SCH (08:44)
[2019-10-05] MEDS: ASCORBIC ACID 500 MG TAB PO SCH (08:44)
[2019-10-05] MEDS: SODIUM CHLORIDE 0.9% INJ 10 ML SYR IV SCH ×2 (08:45→16:00)
[2019-10-05] MEDS: VITAMIN D 1,000 INTERNATIONAL UNITS TABLET PO SCH (08:45)
[2019-10-05] MEDS: METOPROLOL TART 50 MG TAB PO SCH (08:47)
[2019-10-05] MEDS: PROCHLORPERAZINE 5 MG TAB (S0183) PO SCH ×4 (08:47→21:00)
[2019-10-05] MEDS ORDERED: diltiaZEM 125 MG in NS 100 ML IV SCH (10:00)
[2019-10-05] MEDS ORDERED: PIPERACILLIN/TAZOBACTAM SOD 2.25 GM in D5W MINI-BAG PLUS 50 ML IV SCH (11:00)
[2019-10-05] MEDS: diltiaZEM 125 MG in NS 100 ML IV SCH ×3 (11:41→12:00)
[2019-10-05] MEDS: ONDANSETRON 4MG/2ML VIAL IV PRN (11:59)
[2019-10-05] MEDS: KCL 10MEQ/100ML SWI (KRUN) 10 MEQ in IV 1 EA IV SCH ×4 (12:00→16:01)
[2019-10-05] MEDS ORDERED: MIDAZOLAM INJ 2MG/2ML VIAL (J2250 PER 1MG) As Ordered ONE (12:30)
[2019-10-05] MEDS ORDERED: fentaNYL 100 MCG/2 ML INJECTION (J3010) As Ordered ONE (12:31)
[2019-10-05] MEDS ORDERED: fentaNYL 100 MCG/2 ML INJECTION (J3010) IV ONE (13:15)
[2019-10-05] MEDS ORDERED: MIDAZOLAM INJ 2MG/2ML VIAL (J2250 PER 1MG) IV ONE (13:15)
[2019-10-05] MEDS ORDERED: NS 500 ML IV ONE (14:00)
--- NOTE | 2019-10-05 14:00 | ROOPDOC ---
[facility] Report Of Operation Report of Operation DATE OF PROCEDURE: October 05, 2019 PREPROCEDURE DIAGNOSES: Hypotension and Critical Monitoring POSTPROCEDURE DIAGNOSES: Hypotension and Critical Monitoring PROCEDURE: Right IJ central line placement Performed by: Dr. Baez Attending: Dr. Lund ANESTHESIA: local ESTIMATED BLOOD LOSS: Approximately 0 mL. COMPLICATIONS: none PROCEDURE NOTE: Consent was obtained prior to the procedure. Indications, risks and benefits were explained to the daughter, who is the HCP. Procedure was performed at bedside in the ICU DESCRIPTION OF PROCEDURE: The patient was placed in the supine position, was placed in Trendelenburg. The right chest region and neck was prepped with chlorhexidine scrub. The patient was draped in the typical sterile fashion using a full drape. Ultrasonography was employed at bedside. A sterile probe cover was placed over the ultrasound. The medial and lateral head of the sternocleidomastoid were identified, as was the carotid pulse. The internal jugular vein was identified using ultrasound. Anesthesia was achieved over the internal jugular vein on the right using a 1% lidocaine solution. Once anesthetized, an introducer needle was inserted into the internal jugular vein under direct ultrasound visualization. Venous blood was withdrawn, syringe was removed and a guidewire was advanced on to the introducer needle. The guidewire was visualized in the internal jugular vein by ultrasound. A small incision was made in the skin surface with a scalpel, and the introducer needle was exchanged for a dilator over the guidewire. After appropriate dilation was obtained, the dilator was exchanged over the wire for a central venous catheter. The wire was removed, and the catheter was sutured in place. A sterile bandage was placed over the catheter site. The patient tolerated the procedure well without any hemodynamic compromise. At the time of procedure completion, all ports were aspirated and flushed properly. Postprocedure x-ray was performed, which demonstrated adequate positioning of the central venous catheter in the right internal jugular vein. DARYN BAEZ DO October 05, 2019 14:00 CHRISTEL LUND MD October 10, 2019 21:39
--- NOTE | 2019-10-05 14:28 | REP ---
Portable chest x-ray: Single view. 01:52 p.m. film. History: Post line placement. Comparison study: 10/04/2019 at 02:17 a.m. Findings: A right internal jugular central venous line has been inserted with its tip in the expected location superior vena cava. A left IJ Khuayy-I-Hjwr catheter is again seen unchanged. Monitoring electrodes are seen. Extensive pleuroparenchymal opacity persists left base. There is no evidence of pneumothorax or new pleural effusion on the right. There are increased markings in the perihilar region and mid lung region on the right compared to the previous day's radiograph. Cardiomegaly is again observed. Impression: Right IJ line in place. No pneumothorax seen. Increased markings right perihilar region question new infiltrate. Electronically Signed by Omar Douglass MD 10/05/2019 02:19 P
[2019-10-05] MEDS: VORICONAZOLE 200MG TABLET (VFEND) PO SCH ×3 (15:00→21:00)
[2019-10-05] MEDS ORDERED: FILGRASTIM 300 MCG/0.5 ML SYRINGE (J1442 PER 1MCG) SC ONE (15:00)
--- NOTE | 2019-10-05 15:31 | CCN ---
DATE OF SERVICE: 10/05/2019 Concepcion is an 84-year-old female with metastatic cancer who was brought in with pancytopenia and a 2-3 week history of diarrhea. She had been in our hospital for neutropenic fever. ANC is unmeasurable this morning. She was urgently brought over to the intensive care unit by Dr. Medina for atrial fibrillation (AFib) with rapid ventricular response (RVR). Placed on diltiazem. Patient remained unstable despite being on 15 mg of diltiazem and blood pressure started to drop. Therefore, cardioversion was performed. I was involved at the beginning of the cardioversion urgently. After one 150 150 joules synchronized cardioversion the patient went into a sinus rhythm with a heart rate of 80 and blood pressure improved from 60 systolic to 80 systolic. Upon review of record, she has lactic acidosis, worsening renal function. She has been on Zosyn and vancomycin for her neutropenia with intermittent low grade fevers. Over the past 24 hours it does not appear that there has been a large fever, although she does feel warm to touch. Despite her history the patient has determined that she wants everything done, trial of intubation. She wants aggressive measures at this point in time. PHYSICAL EXAMINATION: Temperature is 97.4. Pulse is 87. Blood pressure is 86/52. Oxygen saturation is 100% on 2 liters. Temperature is 97.4. This morning's a.m. glucose is 108. Respiratory rate is 16. HEENT: Sclerae clear and anicteric. Pupils equal and react to light. Mucous membranes moist without lesions. Neck is supple. No tracheal deviation or mass. Lymphatics: No cervical, supraclavicular or axillary adenopathy. Chest wall: She has a right mastectomy. Pulmonary: Decreased breath sounds throughout. No rales, rhonchi or wheezes. More decreased on the left than on the right. Cardiac sounds are intact. Cardiac: S1, S2, prior to the cardioversion in atrial fibrillation after in sinus rhythm. I did not auscultate a murmur. Abdomen: Soft, nontender, nondistended. No diarrhea reported over the past 24 hours. Skin: Pale, without rashes, but no jaundice, some minimal bruising of varying stages. Extremities: There is significant edema in lower extremities. Laboratory evaluation shows zero neutrophils. Total white blood cell count is 0.2. Hemoglobin is down to 7.7. Platelet count of 11. Sodium is 148, potassium 3.3, chloride is 115. Bicarbonate is 21. BUN is 41, creatinine 2.04. Lactic acid is 4.3, calcium 6.6. Alkaline phosphatase is 38. BNP was 28,000. Chest x-ray shows chronic abnormalities on the left consistent with her prior malignancy. I do not see any new infiltrates. Chest x-ray today is pending after central line was placed. IMPRESSION: 1. Hypotension with lactic acidosis. I believe she is likely intravascularly volume depleted, although she has systemic edema. She has been having diarrhea and vomiting. She also has hypernatremia. Would suggest a fluid challenge, especially because oxygen saturation is more than adequate on 2 liters. 2. Lactic acidosis with a question of sepsis in the face of no neutrophils. Due to the fact that she is so significantly ill, has no neutrophils, would cover with voriconazole. I have ordered galantamine galactomannan and okxx-R-ibkofl. Although, there may be false positives with the use of Zofran. 3. Hypoalbuminemia. Replaced IV. 4. Anemia. Will repeat CBC. If hemoglobin less than 7, will transfuse. 5. Thrombocytopenia. Will replace when platelet count is less than 10 or bleeding. 6. Renal failure. Possibly hydration will help. 7. Metastatic cancer. Very poor prognosis in general. 8. Atrial fibrillation with rapid ventricular response. Better rate control status post cardioversion. May be related to intravascular volume status. Will closely monitor. Patient is currently on diltiazem drip, although decreased in concentration due to hypotension. Much better response after cardioversion. Of note, I have not been able to have a full conversation with the patient in regards to advance directives as she was sedated after her cardioversion. We will readdress advance directives, however, this has been extensively addressed this morning. The patient understands she has limited life expectancy from her advanced disease alone, but however, she wants trials to see if she can survive this hospitalization and she is willing to accept all critical care aspects. Of note, if patient continues to be critically ill with lactic acidosis and findings of sepsis would consider infectious disease consultation.
--- NOTE | 2019-10-05 15:45 | IPNPDOC ---
Date Seen The patient was seen on 10/05/19. Progress Note SUBJECTIVE: 84-year-old female with metastatic lung cancer was initially admitted for chemotherapy-induced colitis. She has developed worsening pancytopenia throughout hospitalization, secondary to chemotherapy. Patient was febrile 48 hours ago, started on Zosyn for neutropenic fever. Subsequently, she developed A. fib with RVR, extremely difficult to control despite receiving metoprolol/digoxin/amiodarone. Patient has remained in A. fib with RVR throughout the night, heart rate 160s-180s. Patient seen in the morning, reports mild dyspnea and fatigue, no other complaints. The patient was transferred to the ICU given severely fast rate and borderline low blood pressure. Had a long discussion with patient and daughter at bedside, decided on electrical cardioversion as nothing else would work for the patient. Patient was successfully cardioverted and currently in normal sinus rhythm. 10 point review of system is negative except for above PHYSICAL EXAMINATION: VITAL SIGNS: Please see below. GENERAL: No distress HEENT: Normocephalic, atraumatic, moist mucous membranes NECK: Right IJ triple-lumen catheter in place CARDIOVASCULAR EXAMINATION: S1, S2, no murmurs RESPIRATORY EXAMINATION: Scattered rhonchi on the left side, diminished in the bases, no wheezing ABDOMINAL EXAMINATION: Soft, nontender, nondistended, positive bowel sounds EXTREMITIES: Trace edema SKIN: No rash NEUROLOGICAL EXAMINATION: no focal deficits PSYCHIATRIC EXAMINATION: Calm and cooperative LABORATORY DATA, IMAGING STUDIES, MICROBIOLOGY: Please see below. ASSESSMENT AND PLAN: 84-year-old female with metastatic lung cancer is admitted for pancytopenia and colitis along with possible blood loss anemia. PROBLEMS: 1. Neutropenic fever - on empiric Zosyn, cultures growing GNR, started on voriconazole and Neupogen. We'll also transfuse 1 unit of platelets. 2. Afib w/ RVR - unresponsive to all forms medical management (metoprolol/Cardizem/amiodarone/digoxin), electrical cardioversion performed, successful, continue Cardizem drip, not a candidate for anticoagulation given severe thrombocytopenia. 3. Acute on chronic kidney disease: Multifactorial, worsening, started on IV albumin to assist in urine output and increase intravascular volume, will monitor. DVT prophylaxis: SCDs. GI prophylaxis: PPI VS, I&O, 24H, Fishbone Vital Signs/I&O Vital Signs Date Time Temp Pulse Resp B/P (MAP) Pulse Ox O2 Delivery O2 Flow Rate FiO2 10/05/19 14:35 97.6 84 22 102/54 (70) 100 Nasal Cannula 1.0 I&O- Last 24 Hours up to 6 AM 10/05/19 06:00 Intake Total 1870 ml Output Total 508 ml Balance 1362 ml Laboratory Data 24H LABS Laboratory Tests 2 10/04/19 16:13: Urine Color TIGIST, Urine Appearance CLOUDYH, Urine pH 5.0, Urine Specific [place] 1.020, Urine Protein 2+H, Urine Glucose (UA) 1+H, Urine Ketones NEGATIVE, Urine Blood 2+H, Urine Nitrite NEGATIVE, Urine Bilirubin NEGATIVE, Urine Urobilinogen 0.2, Urine Leukocyte Esterase NEGATIVE, Urine WBC (Auto) 5H, Urine RBC (Auto) 3, Urine Hyaline Casts (Auto) 1, Urine Bacteria (Auto) 3+H, Urine Squamous Epithelial Cells 1, Urine Amorphous Sediment SMALLH, Urine Mucus (Auto) SMALL, Urine Sperm (Auto) 10/05/19 02:51: Troponin I < 0.02 10/05/19 05:41: Immature Granulocyte % (Auto) 0.0, Neutrophils (%) (Auto) 0.0L, Lymphocytes (%) (Auto) 93.3H, Monocytes (%) (Auto) 6.7H, Eosinophils (%) (Auto) 0.0, Basophils (%) (Auto) 0.0, Neutrophils # (Auto) 0.0L, Lymphocytes # (Auto) 0.1L, Monocytes # (Auto) 0.0, Eosinophils # (Auto) 0.0, Basophils # (Auto) 0.0, Nucleated Red Blood Cells % (auto) 0.0, Immature Platelet Fraction 0.7, Anion Gap 12, Glomerular Filtration Rate 24.6L, Calcium Level 6.6#L, Phosphorus Level 2.7, Magnesium Level 2.0, Total Bilirubin 0.5, Aspartate Amino Transf (AST/SGOT) 8, Alanine Aminotransferase (ALT/SGPT) 14, Alkaline Phosphatase 38L, KQ-Wod-M-Type Natriuretic Peptide [id number], Total Protein 4.5L, Albumin 1.2#L, Albumin/Globulin Ratio 0.4L, Random Vancomycin Level 6.5 10/05/19 06:35: Lactic Acid Level 4.2*H 10/05/19 10:46: Lactic Acid Followup at 4 Hours 4.3*H 10/05/19 13:59: CBC/BMP Laboratory Tests 10/05/19 05:41 Microbiology Microbiology 10/05/19 Stool Occult Blood (CHRISTINA) - Final, Complete 10/05/19 Blood Culture, Received Pending 10/04/19 Blood Culture - Preliminary, Resulted No growth after 24 hours . All specim... 10/04/19 Blood Culture - Preliminary, Resulted 09/29/19 Urine Culture - Final, Complete 09/28/19 Blood Culture - Final, Complete NO GROWTH AFTER 5 DAYS 09/28/19 Blood Culture - Final, Complete NO GROWTH AFTER 5 DAYS CHRISTEL LUND MD October 05, 2019 14:47
[2019-10-05 15:56] LABS: MEAN CORPUSCULAR HEMOGLOBIN 29.6 pg (27.0-33.0); MEAN CORPUSCULAR HGB CONC 33.3 g/dl (32.0-36.5); MEAN CORPUSCULAR VOLUME 88.9 fl (80.0-96.0); PLATELET COUNT, AUTOMATED 9 10^3/uL (150-450); WHITE BLOOD COUNT 0.2 10^3/uL (4.0-10.0)
[2019-10-05 18:33] LABS: LYMPH # 0.1 10^3/uL (1.5-5.0); LYMPH % 86.7 % (24.0-44.0); NEUTROPHILS % 13.3 % (36.0-66.0)
[2019-10-05 18:35] LABS: PLATELET ESTIMATE MARKED DECREASE (NORMAL)
[2019-10-06] VITALS (27 sets, daily range): BP systolic 95–131; BP diastolic 50–67
[2019-10-06] MEDS: ONDANSETRON 4MG/2ML VIAL IV PRN ×4 (01:17→16:10)
[2019-10-06] MEDS: PIPERACILLIN/TAZOBACTAM SOD 2.25 GM in D5W MINI-BAG PLUS 50 ML IV SCH ×2 (04:00→09:03)
[2019-10-06] MEDS: diltiaZEM 125 MG in NS 100 ML IV SCH (04:00)
[2019-10-06 04:48] LABS: ALBUMIN 1.8 GM/DL (3.2-5.2); BILIRUBIN,TOTAL 2.2 MG/DL (0.2-1.0); CALCIUM LEVEL 7.5 MG/DL (8.8-10.2); CREATININE FOR GFR 2.88 MG/DL (0.55-1.30); GLOMERULAR FILTRATION RATE 16.6 (>32); MAGNESIUM LEVEL 2.2 MG/DL (1.8-2.4); PHOSPHORUS LEVEL 3.1 MG/DL (2.5-4.9); POTASSIUM SERUM 4.1 MEQ/L (3.5-5.1); TOTAL PROTEIN 4.6 GM/DL (6.4-8.2)
[2019-10-06] MEDS ORDERED: ADENOSINE 6MG/2ML INJECTION (J0153) As Ordered ONE (06:20)
[2019-10-06] MEDS ORDERED: AMIODARONE HCL 150 MG/100 ML PREMIXED BAG (NEXTERONE) (J0282 PER 30MG) As Ordered ONE (06:25)
[2019-10-06] MEDS ORDERED: AMIODARONE HCL 150 MG in IV 1 EA IV STA ×2 (06:28→06:47)
[2019-10-06 06:41] LABS: LYMPH # 0.1 10^3/uL (1.5-5.0); LYMPH % 91.7 % (24.0-44.0); MEAN CORPUSCULAR HEMOGLOBIN 29.7 pg (27.0-33.0); MEAN CORPUSCULAR HGB CONC 33.3 g/dl (32.0-36.5); NEUTROPHILS % 8.3 % (36.0-66.0); RED BLOOD COUNT 2.19 10^6/uL (4.00-5.40)
[2019-10-06 06:43] LABS: WHITE BLOOD COUNT 0.1 10^3/uL (4.0-10.0)
[2019-10-06 06:45] LABS: HEMATOCRIT 19.5 % (36.0-47.0); PLATELET COUNT, AUTOMATED 20 10^3/uL (150-450)
[2019-10-06 06:47] LABS: HEMOGLOBIN 6.5 g/dl (12.0-15.5)
[2019-10-06] MEDS ORDERED: VANCOMYCIN HCL 500 MG in D5W MINI-BAG PLUS 100 ML IV ONE (07:00)
[2019-10-06 07:03] LABS: ALBUMIN 1.9 GM/DL (3.2-5.2); CALCIUM LEVEL 7.5 MG/DL (8.8-10.2); CREATININE FOR GFR 2.96 MG/DL (0.55-1.30); MAGNESIUM LEVEL 2.3 MG/DL (1.8-2.4); PHOSPHORUS LEVEL 3.4 MG/DL (2.5-4.9); POTASSIUM SERUM 3.9 MEQ/L (3.5-5.1); TOTAL PROTEIN 4.7 GM/DL (6.4-8.2); VANCOMYCIN RANDOM 14.4 UG/ML
--- NOTE | 2019-10-06 07:29 | IPNPDOC ---
Date Seen The patient was seen on 10/06/19. Progress Note SUBJECTIVE: Patient had one epispode of atrial fib with RVR, HR >200 and later converted by herself to NSR. Electrolytes were wnl. This AM, HR jumped to 211, afib with RVR while on cardizem gtt. Given two 150 mg amiodarone boluses with little improvement. Discussed case with Dr. Beyer who agreed with trying amiodarone, BP remained stable. H/H decreased, ordered 1 unit PRBC to be transfused. Occult blood positive, consider another PLT transfusion. Case discussed with day provider, Dr. Lockett at sign out. OBJECTIVE: VITAL SIGNS: Please see below PHYSICAL EXAMINATION: CONSTITUTIONAL: Lethargic, awake and O x 3 EYES: PERRLA, EOM intact HENT, MOUTH: Normocephalic, atraumatic, moist mucous membranes NECK: SUPPLE, no JVD, no lymphadenopathy, no carotid bruit, right IJ central erin e CV: irregularly, irregular rate, tachycardic. S1S2 normal, no murmurs/rubs/gallops CHEST: Chemo port in left chest RESPIRATORY: Clear to auscultation bilaterally, no rales/rhonchi/wheezes GI: BS positive in 4 quadrants, soft, nontender, nondistended, no rebound or guarding, no organomegaly : Deferred MUSCULOSKELETAL: ROM not performed. No cyanosis, clubbing, swelling, joint deformity, extremity edema INTEGUMENTARY: Intact, no rashes, no lesions, no erythema NEUROLOGIC: Cranial Nerves II-XII are intact, no focal deficits CURRENT MEDICATIONS: Please see below LABORATORY DATA: Please see below IMAGING: No new imaging. OVERNIGHT ISSUES ADDRESSED WITH PLAN: 1. Atrial fib with RVR, uncontrolled. S/p two amiodarone 150 mg boluses and on cardizem gtt 5 mg/hr. BP soft so did not increase gtt. Discussed with covering provider the complicated history and what has been tried in the past to treat this issue. Dr. Beyer (critical care) made aware, agreed with treatment plan. Dr. Sage (cardiology) consulted. Overall poor prognosis. 2. Anemia, worsened. Occult blood positive, cannot r/o bleed. Ordered 1 unit PRBC to be transfused now. S/p 3 PRBC this admission already. Updated oncoming provider. VS, I&O, 24H, Jemma Vital Signs/I&O Vital Signs Date Time Temp Pulse Resp B/P (MAP) Pulse Ox O2 Delivery O2 Flow Rate FiO2 10/06/19 06:59 98.2 167 24 104/60 92 Nasal Cannula 2.0 I&O- Last 24 Hours up to 6 AM 10/06/19 06:00 Intake Total 1345.0 ml Output Total 900 ml Balance 445.0 ml Laboratory Data 24H LABS Laboratory Tests 2 10/05/19 10:46: Lactic Acid Followup at 4 Hours 4.3*H 10/05/19 13:59: 10/05/19 14:02: Immature Granulocyte % (Auto) 0.0, Neutrophils (%) (Auto) 13.3L, Lymphocytes (%) (Auto) 86.7H, Monocytes (%) (Auto) 0.0, Eosinophils (%) (Auto) 0.0, Basophils (%) (Auto) 0.0, Neutrophils # (Auto) 0.0L, Lymphocytes # (Auto) 0.1L, Monocytes # (Auto) 0.0, Eosinophils # (Auto) 0.0, Basophils # (Auto) 0.0, Immature Granulocyte # (Auto) 0.0, Nucleated Red Blood Cells % (auto) 0.0, Platelet Estimate MARKED DECREASE 10/06/19 03:15: Anion Gap 12, Glomerular Filtration Rate 16.6L, Calcium Level 7.5L, Phosphorus Level 3.1, Magnesium Level 2.2, Total Bilirubin 2.2#H, Aspartate Amino Transf (AST/SGOT) 5L, Alanine Aminotransferase (ALT/SGPT) 15, Alkaline Phosphatase 41L, Total Protein 4.6L, Albumin 1.8#L, Albumin/Globulin Ratio 0.6L 10/06/19 05:30: Immature Granulocyte % (Auto) 0.0, Neutrophils (%) (Auto) 8.3L, Lymphocytes (%) (Auto) 91.7H, Monocytes (%) (Auto) 0.0, Eosinophils (%) (Auto) 0.0, Basophils (%) (Auto) 0.0, Neutrophils # (Auto) 0.0L, Lymphocytes # (Auto) 0.1L, Monocytes # (Auto) 0.0, Eosinophils # (Auto) 0.0, Basophils # (Auto) 0.0, Nucleated Red Blood Cells % (auto) 0.0, Anion Gap 13, Glomerular Filtration Rate 16.0L, Calcium Level 7.5L, Phosphorus Level 3.4, Magnesium Level 2.3, Total Bilirubin 2.0H, Aspartate Amino Transf (AST/SGOT) 6L, Alanine Aminotransferase (ALT/SGPT) 15, Alkaline Phosphatase 39L, Total Protein 4.7L, Albumin 1.9L, Albumin/Globulin Ratio 0.7L, Random Vancomycin Level 14.4 CBC/BMP Laboratory Tests 10/05/19 14:02 10/06/19 03:15 10/06/19 05:30 Microbiology Microbiology 10/05/19 Stool Occult Blood (CHRISTINA) - Final, Complete 10/05/19 Blood Culture - Preliminary, Resulted No growth after 24 hours . All specim... 10/04/19 Blood Culture - Preliminary, Resulted No Growth after 48 hours. All Specime... 10/04/19 Blood Culture - Final, Complete Klebsiella Pneumoniae 09/29/19 Urine Culture - Final, Complete 09/28/19 Blood Culture - Final, Complete NO GROWTH AFTER 5 DAYS 09/28/19 Blood Culture - Final, Complete NO GROWTH AFTER 5 DAYS Current Medications Current Medications Medications (Trade) Dose Ordered Sig/Moody Route PRN Reason Start Time Stop Time Status Last Admin Dose Admin Acetaminophen (Tylenol Tab) 1,000 mg TID PRN PO PAIN 09/29/19 00:15 10/03/19 22:52 Allopurinol (Zyloprim) 100 mg BID PO 09/29/19 09:00 09/29/19 08:20 DC Amiodarone HCl 150 mg/IV Miscellaneous Supplies 100 ml @ 185 mls/hr STAT STAT IV 10/06/19 06:28 10/06/19 07:00 DC 10/06/19 06:34 Amiodarone HCl 150 mg/IV Miscellaneous Supplies 100 ml @ 600 mls/hr STAT STAT IV 10/06/19 06:47 10/06/19 06:56 DC 10/06/19 06:52 Amiodarone HCl 360 mg/IV Miscellaneous Supplies 200 ml @ 17 mls/hr [id number] IV 10/04/19 19:00 10/05/19 08:49 DC 10/05/19 05:46 Amiodarone HCl 360 mg/IV Miscellaneous Supplies 200 ml @ 33.333 mls/ hr Q6H IV 10/04/19 13:00 10/04/19 13:05 DC 10/04/19 13:07 Amlodipine Besylate (Norvasc) 10 mg DAILY PO 09/29/19 09:00 09/29/19 08:20 DC Ascorbic Acid (Vitamin C) 500 mg DAILY PO 09/29/19 09:00 10/04/19 08:56 Benazepril HCl (Lotensin) 40 mg DAILY PO 09/29/19 09:00 09/29/19 08:20 DC Digoxin (Lanoxin) 0.25 mg STAT STAT IV 10/05/19 00:36 10/05/19 00:41 DC 10/05/19 01:24 Diltiazem HCl 125 mg/Sodium Chloride 125 ml @ 10 mls/hr [id number] IV 10/05/19 10:00 10/05/19 08:48 DC Diltiazem HCl 125 mg/Sodium Chloride 125 ml @ 10 mls/hr [id number] IV 10/05/19 12:00 10/06/19 04:00 Filgrastim (Neupogen) 300 mcg DAILY SC 10/06/19 09:00 Flecainide Acetate (Tambocor) 50 mg BID PO 09/29/19 00:15 10/04/19 11:14 DC 10/04/19 08:57 Folic Acid (Folic Acid) 1 mg DAILY PO 09/29/19 09:00 10/04/19 08:57 Heparin Sodium (Heparin (Flush)) 500 units ASDIRECTED PRN IV SEE LABEL COMMENTS 10/01/19 19:15 10/05/19 16:03 DC 10/04/19 17:43 Heparin Sodium (Heparin (Flush)) 500 units DAILY IV 10/02/19 09:00 10/05/19 16:03 DC 10/05/19 16:00 Home Med (Med Rec Complete!) ASDIRECTED XX 09/28/19 22:00 09/28/19 21:53 DC Lidocaine HCl (Lidocaine 2% Visc Soln) 5 ml Q4HP PRN SS DISCOMFORT 09/29/19 00:15 09/29/19 01:17 Magnesium Sulfate/ Dextrose 1 gm/IV Miscellaneous Supplies 100 ml @ 100 mls/hr Q1H IV 10/03/19 09:00 10/03/19 10:59 DC 10/03/19 08:50 Magnesium Sulfate/ Dextrose 1 gm/IV Miscellaneous Supplies 100 ml @ 100 mls/hr Q1H IV 10/03/19 11:00 10/03/19 12:59 DC 10/03/19 11:47 Metoprolol Tartrate (Lopressor) 5 mg STAT STAT IV 10/04/19 23:09 10/04/19 23:13 DC 10/04/19 23:33 Metoprolol Tartrate (Lopressor) 25 mg BID PO 10/01/19 09:00 10/01/19 15:08 DC 10/01/19 15:00 Metoprolol Tartrate (Lopressor) 50 mg BID PO 09/29/19 00:15 09/29/19 08:20 DC Metoprolol Tartrate (Lopressor) 50 mg BID PO 10/01/19 21:00 10/05/19 10:48 DC 10/04/19 08:57 Non-Formulary Medication ( See Comment Field Below ) [facility] ASD[facility]RECT[facility] XX 10/04/19 09:30 Ondansetron HCl (ZOFRAN INJection) 4 mg Q4HP PRN IV NAUSEA OR VOMITING 10/01/19 19:45 10/06/19 05:31 Pantoprazole Sodium (Protonix) 40 mg BID IV 09/29/19 09:00 10/02/19 19:34 DC 10/02/19 08:53 Pantoprazole Sodium (Protonix) 40 mg BID PO 10/02/19 21:00 10/05/19 08:48 DC 10/04/19 08:56 Pantoprazole Sodium (Protonix) 40 mg DAILY PO 09/29/19 09:00 09/29/19 08:20 DC Phenol (Chloraseptic [place]) 1 spray Q2HP PRN MT SORE THROAT 09/29/19 00:15 09/29/19 02:31 Piperacillin Sod/ Tazobactam Sod 2.25 gm/Dextrose 50 ml @ 100 mls/hr Q6H IV 10/04/19 03:00 10/05/19 08:48 DC 10/05/19 08:48 Piperacillin Sod/ Tazobactam Sod 2.25 gm/Dextrose 50 ml @ 100 mls/hr Q6H IV 10/05/19 11:00 10/05/19 11:53 DC Piperacillin Sod/ Tazobactam Sod 2.25 gm/Dextrose 50 ml @ 100 mls/hr Q6H IV 10/05/19 15:00 10/06/19 04:00 Piperacillin Sod/ Tazobactam Sod 3.375 gm/Dextrose 50 ml @ 50 mls/hr Q6H IV 09/28/19 23:00 09/29/19 04:40 DC 09/28/19 23:30 Potassium Chloride 10 meq/ IV Miscellaneous Supplies 100 ml @ 100 mls/hr Q1H IV 10/04/19 11:00 10/04/19 14:59 DC 10/04/19 16:35 Potassium Chloride 10 meq/ IV Miscellaneous Supplies 100 ml @ 100 mls/hr Q1H IV 10/05/19 12:00 10/05/19 15:59 DC 10/05/19 16:01 Potassium Chloride (Micro-K Extencaps) 40 meq Q4H PO 10/02/19 09:00 10/02/19 13:01 DC 10/02/19 13:29 Prednisone (Deltasone) 60 mg DAILY PO 09/30/19 09:00 09/30/19 16:33 DC 09/30/19 09:02 Prochlorperazine (Compazine) 5 mg TID PO 09/29/19 00:15 10/04/19 08:57 Prochlorperazine (Compazine) 10 mg Q6HP PRN IV VOMITING 10/03/19 21:15 10/04/19 23:04 Promethazine HCl (PHENERGAN INJection) 25 mg Q4HP PRN IV NAUSEA 10/03/19 14:30 10/03/19 17:31 DC 10/03/19 17:02 Promethazine HCl (PHENERGAN INJection) 25 mg Q8HP PRN IV NAUSEA 10/04/19 23:15 10/05/19 20:48 Rivaroxaban (Xarelto) 20 mg DAILY@1800 PO 09/29/19 00:15 09/29/19 08:13 DC 09/29/19 00:50 Sodium Chloride 1,000 ml @ 80 mls/hr [id number] IV 10/05/19 00:15 10/05/19 08:45 DC 10/05/19 01:23 Sodium Chloride 1,000 ml @ 125 mls/hr Q8H IV 09/28/19 21:35 09/29/19 09:21 DC 09/28/19 22:23 Sodium Chloride (Saline Lock Flush) 10 ml ASDIRECTED PRN IV SEE LABEL COMMENTS 10/01/19 19:15 10/04/19 17:42 Sodium Chloride (Saline Lock Flush) 10 ml DAILY IV 10/02/19 09:00 10/05/19 16:00 Vitamin D (Vitamin D) 1,000 units DAILY PO 09/29/19 09:00 10/04/19 08:56 Voriconazole (Vfend) 200 mg BID PO 10/05/19 09:00 Allergies Coded Allergies: calcium (Verified Allergy, Unknown, 07/27/19) pt states kory pt Amena Lawson MD October 06, 2019 07:29
[2019-10-06] MEDS: PROCHLORPERAZINE 5 MG TAB (S0183) PO SCH ×3 (09:00→20:13)
[2019-10-06] MEDS ORDERED: FILGRASTIM 300 MCG/0.5 ML SYRINGE (J1442 PER 1MCG) SC SCH (09:00)
--- NOTE | 2019-10-06 09:16 | IPN ---
DATE OF SERVICE: 10/06/2019 Concepcion is seen in intensive care unit (ICU). She had an eventful night, detailed in Dr. Lawson's note. The patient developed atrial fibrillation, rapid ventricular response. Rates up to 200. Was seen by critical care machine cutter. The patient is tolerating this without chest pain or shortness of breath. She was actually sleeping when I went to see her. Blood cultures have been positive for Klebsiella pneumoniae times one blood culture. Urine culture is negative. She has a colitis, perhaps immune-mediated heme positive stool, probably from the colitis. No sign of active gastrointestinal (GI) bleeding. PHYSICAL EXAMINATION: Afebrile. 98.2. 106/59. Pulse of 160-180. 93% oxygen (O2) saturation on 2 liters. General appearance: Frail, elderly, lying in bed. Multiple vascular access lines. Dozing. HEENT: Unremarkable. Lungs: Decreased breath sounds, clear. Heart: Rapid, regular rate and rhythm. 1/6 systolic ejection murmur. Abdomen: Soft, nontender. No mass. No peripheral edema. LABORATORIES: Sodium 146, potassium 3.9, BUN 56, creatinine 2.9, glucose 95, albumin 1.9. White count 0.1, 8% neutrophils, absolute neutrophil count of 8, hemoglobin 6.5, platelets of 20 (blood transfusion that was just ordered by the overnight coverage). IMPRESSION: 1. Atrial fibrillation. Rapid ventricular response. Cardiology has been consulted. I will discuss this with Dr. Sage on his rounds. Aggressive medical care with diltiazem, metoprolol, amiodarone has already been instituted. Thyroid functions are unremarkable. She is not on any medications that should provoke tachycardia. 2. Neutropenic fever. On empiric Zosyn. Has Klebsiella on the one blood culture. Also on voriconazole and Neupogen. 3. Anemia secondary to chronic illness and colitis, as well as her chemotherapy. She has had a unit of blood already ordered this morning. 4. Thrombocytopenia. Intermittent platelet transfusions have been ordered. 5. Acute on chronic kidney disease, multifactorial and stable. 6. Metastatic lung cancer. The prognosis is poor. The patient is DO NOT RESUSCITATE (DNR)/DO NOT INTUBATE (DNI).
--- NOTE | 2019-10-06 09:40 | ECGEPIP ---
[facility] Test Date: 2019-10-06 Pat Name: OMAR MANZO Department: Room: [place] [address] Gender: Female Nursing Program Coordinator: MEENAKSHI : 1935 Requested By: Amena Nava Order Number: [id number] Reading MD: Kiki Bishop Measurements Intervals [place] Rate: 167 P: [place]: 0 QRS: 48 QRSD: 103 T: 258 QT: 247 QTc: 412 Interpretive Statements ATRIAL FIBRILLATION WITH RAPID VENTRICULAR RESPONSE MARKED ST DEPRESSION, CONSIDER SUBENDOCARDIAL INJURY RATE FASTER ST DEPRESSION T T ABN MORE MARKED C/W 10/05/19 Electronically Signed on 10-06-2019 9:40:10 EDT by Kiki Bishop
[2019-10-06] MEDS ORDERED: MORPHINE 2 MG/ML 1ML VIAL (J2270) IV PRN (12:00)
[2019-10-06] MEDS ORDERED: LORazepam 1 MG TAB PO PRN (12:00)
[2019-10-06] MEDS ORDERED: MORPHINE SULFATE ORAL SOLN 10 MG/5 ML UD SL PRN (12:00)
[2019-10-06] MEDS ORDERED: HYOSCYAMINE SULFATE 0.125 MG SUBL TABLET PO PRN (12:00)
--- NOTE | 2019-10-06 12:03 | IPN ---
DATE: 10/06/2019 As the morning progress Concepcion came to the decision to request comfort measures status. She expressed this to her nurse. I came back to the hospital to see her and we discussed it further. She indicated that she wanted no more medical care and she just wanted treatment directed towards comfort. She understands this and she has capacity to make that decision. I then spoke to her daughter, Yasmine, who had previously advocated for comfort measures and agreed and accepted her mother's decision. She understands prognosis is poor and life expectancy is very limited. Comfort measure orders have been entered and appropriate adjustments in her current medications have been made.
[2019-10-06] MEDS: LORazepam 2 MG/ML VIAL IV PRN (18:01)
--- NOTE | 2019-10-06 18:18 | IPNPDOC ---
Date Seen The patient was seen on 10/06/19. Progress Note Oncology Patient has had a very carlos hospitalization Patient had gastrointestinal bleed requiring blood transfusion support This was followed by jerome gage with a rapid ventricular response and Klebsiella bacteremia. Patient continues to decompensate Cardioversion temporarily successful Patient is appropriately made the decision to now be comfort measures only Prolonged visit with the patient today with the daughter at bedside Patient resting comfortably The daughter will stay with the patient Triple-lumen catheter can be removed if desired and port accessed if desired Patient still lucent OBJECTIVE PHYSICAL EXAMINATION: VITAL SIGNS: Patient MARKETING ANALYTICS LEAD GENERAL: Awake and alert answering questions HEENT: JVD noted CARDIOVASCULAR: Irregular rate, tachycardic 150 bpm with systolic murmur a ppreciated RESPIRATORY: Bibasilar crackles ABDOMINAL: Midepigastric tenderness EXTREMITIES: 1+ edema ASSESSMENT AND PLAN: This 84-year-old female who is undergoing palliative chemotherapy with immunotherapy for advanced metastatic lung cancer. Patient is DNR/DNI and has unfortunately developed multiple medical problems for which the patient will not recover from. Patient has elected to become comfort measures only. Expected survival 72-99 hours perhaps less Plan Continue with comfort measures only Patient and family in agreement 40 minutes on care with more than 50% counseling and discussion VS, I&O, 24H, Fishbone Vital Signs/I&O Vital Signs Date Time Temp Pulse Resp B/P (MAP) Pulse Ox O2 Delivery O2 Flow Rate FiO2 10/06/19 13:40 1.0 10/06/19 11:06 98.9 182 18 131/54 93 Nasal Cannula I&O- Last 24 Hours up to 6 AM 10/06/19 06:00 Intake Total 1345.0 ml Output Total 900 ml Balance 445.0 ml Laboratory Data 24H LABS Laboratory Tests 2 10/06/19 03:15: Anion Gap 12, Glomerular Filtration Rate 16.6L, Calcium Level 7.5L, Phosphorus Level 3.1, Magnesium Level 2.2, Total Bilirubin 2.2#H, Aspartate Amino Transf (AST/SGOT) 5L, Alanine Aminotransferase (ALT/SGPT) 15, Alkaline Phosphatase 41L, Total Protein 4.6L, Albumin 1.8#L, Albumin/Globulin Ratio 0.6L 10/06/19 05:30: Anion Gap 13, Glomerular Filtration Rate 16.0L, Calcium Level 7.5L, Phosphorus Level 3.4, Magnesium Level 2.3, Total Bilirubin 2.0H, Aspartate Amino Transf (AST/SGOT) 6L, Alanine Aminotransferase (ALT/SGPT) 15, Alkaline Phosphatase 39L, Total Protein 4.7L, Albumin 1.9L, Albumin/Globulin Ratio 0.7L, Immature Granulocyte % (Auto) 0.0, Neutrophils (%) (Auto) 8.3L, Lymphocytes (%) (Auto) 91.7H, Monocytes (%) (Auto) 0.0, Eosinophils (%) (Auto) 0.0, Basophils (%) (Auto) 0.0, Neutrophils # (Auto) 0.0L, Lymphocytes # (Auto) 0.1L, Monocytes # (Auto) 0.0, Eosinophils # (Auto) 0.0, Basophils # (Auto) 0.0, Nucleated Red Blo od Cells % (auto) 0.0, Random Vancomycin Level 14.4 10/06/19 09:13: Lactic Acid Level 1.2 CBC/BMP Laboratory Tests 10/06/19 03:15 10/06/19 05:30 Microbiology Microbiology 10/05/19 Stool Occult Blood (CHRISTINA) - Final, Complete 10/05/19 Blood Culture - Preliminary, Resulted No growth after 24 hours . All specim... 10/04/19 Blood Culture - Preliminary, Resulted No Growth after 48 hours. All Specime... 10/04/19 Blood Culture - Final, Complete Klebsiella Pneumoniae 09/29/19 Urine Culture - Final, Complete 09/28/19 Blood Culture - Final, Complete NO GROWTH AFTER 5 DAYS 09/28/19 Blood Culture - Final, Complete NO GROWTH AFTER 5 DAYS DEVAUGHN RAYA MD October 06, 2019 18:18
[2019-10-07] MEDS: ONDANSETRON 4MG/2ML VIAL IV PRN ×3 (00:31→09:54)
[2019-10-07] MEDS: LORazepam 2 MG/ML VIAL IV PRN ×4 (04:03→23:10)
[2019-10-07] MEDS: PROCHLORPERAZINE 5 MG TAB (S0183) PO SCH ×3 (09:00→21:00)
[2019-10-07] MEDS: SODIUM CHLORIDE 0.9% INJ 10 ML SYR IV SCH (09:54)
--- NOTE | 2019-10-07 12:12 | IPN ---
DATE: 10/07/2019 Concepcion is on COMFORT MEASURES ONLY measures. I spoke with her daughter, Yasmine. Her mother was uncomfortable over the evening with nausea and vomiting. PHYSICAL EXAMINATION: The patient is unresponsive, lying in bed, murmuring. She is at rest currently. Lungs: Clear. Heart: Regular rate and rhythm. Abdomen: Soft, nontender. IMPRESSION: COMFORT MEASURES ONLY STATUS, patient with metastatic lung cancer and atrial fibrillation with rapid ventricular response. PLAN: I will discuss the case with her daughter, Yasmine. She agreed with hospice referral. We will ask hospice to consider hospice residence today.
[2019-10-07] MEDS: PROMETHAZINE INJ 25 MG/ML VIAL (J2550) IV PRN ×2 (13:45→23:09)
--- NOTE | 2019-10-14 12:23 | DSES ---
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 SECONDARY DIAGNOSES: 1. Klebsiella bacteremia. 2. Atrial fibrillation with rapid ventricular response. 3. Chemotherapy induced pancytopenia. 4. cardiogenic shock in setting of atrial fibrillation with rapid ventricular response 5. Protein calorie malnutrition HISTORY: The patient was admitted on 09/28/2019 to the hospitalist service. I only took care of her for the last day of her life. Her hospital course was extensively detailed in the notes. When I assumed her care, she was pancytopenic, hypotensive, in atrial fibrillation with rapid ventricular response, and requesting comfort measures. We moved her out of the intensive care unit (ICU) and placed her on comfort measures. We consulted hospice, but she on the evening of 10/08/2019 prior to being able to go to hospice house. Details of the labs, etc., are in the permanent record and will not be repeated here. MARY
== END 2019-10-08 02:47 | disposition expired | DRG 393 ==
LOC: M MS5PR 21:21 → M PCU 10-03 22:08 → M ICU 10-05 11:22 → M MSPAV 10-06 13:37
PROVIDERS: ADMIT Internal Medicine; ATTEND Family Medicine
PROC: 30233N1 Transfusion of Nonautologous Red Blood Cells into Peripheral Vein, Percutaneous Approach (ICD-10-PCS; 2019-09-29)
PROC: 30233R1 Transfusion of Nonautologous Platelets into Peripheral Vein, Percutaneous Approach (ICD-10-PCS; 2019-10-03)
PROC: 05HY32Z Insertion of Monitoring Device into Upper Vein, Percutaneous Approach (ICD-10-PCS; principal; 2019-10-05)
PROC: 30233J1 Transfusion of Nonautologous Serum Albumin into Peripheral Vein, Percutaneous Approach (ICD-10-PCS; 2019-10-05)
DX: K52.1 Toxic gastroenteritis and colitis (principal); D61.810 Antineoplastic chemotherapy induced pancytopenia; A41.9 Sepsis, unspecified organism; C34.12 Malignant neoplasm of upper lobe, left bronchus or lung; I48.20 Chronic atrial fibrillation, unspecified; C79.51 Secondary malignant neoplasm of bone; N17.9 Acute kidney failure, unspecified; D62 Acute posthemorrhagic anemia; E87.2 Acidosis; E87.0 Hyperosmolality and hypernatremia; E46 Unspecified protein-calorie malnutrition; Z66 Do not resuscitate; R57.0 Cardiogenic shock; E88.09 Other disorders of plasma-protein metabolism, not elsewhere classified; E86.0 Dehydration; I12.9 Hypertensive chronic kidney disease with stage 1 through stage 4 chronic kidney disease, or unspecified chronic kidney disease; D63.0 Anemia in neoplastic disease; D64.81 Anemia due to antineoplastic chemotherapy; T45.1X5A Adverse effect of antineoplastic and immunosuppressive drugs, initial encounter; N18.9 Chronic kidney disease, unspecified; Z51.5 Encounter for palliative care; Z85.3 Personal history of malignant neoplasm of breast; Z90.11 Acquired absence of right breast and nipple; M10.9 Gout, unspecified; Z85.828 Personal history of other malignant neoplasm of skin; Z87.891 Personal history of nicotine dependence; Z79.01 Long term (current) use of anticoagulants; Z79.899 Other long term (current) drug therapy; Z88.8 Allergy status to other drugs, medicaments and biological substances; Z98.41 Cataract extraction status, right eye; Z98.42 Cataract extraction status, left eye